=== PATIENT | female | born 1945 | race Caucasian/White ===

== ENCOUNTER → 2018-05-04 10:06 | Outpatient (CLI) | payer MEDICARE, OTHER, SELFPAY ==
[2018-05-04 11:23] LABS: Free T4 (Free Thyroxine) 1.34 ng/dl (0.76-1.46); Thyroid Stimulating Hormone 1.03 uIU/ml (0.358-3.740)
[2018-05-05 17:11] LABS: Thyroglobulin Level <1.0 IU/mL (0.0-0.9); Thyroid Peroxidase Antibodies 9 IU/mL (0-34)
== END ==
PROVIDERS: Visit Provider Otolaryngology
DX: E03.9 Hypothyroidism, unspecified (principal)
CPT/HCPCS: 36415; 84439; 84443; 86376; 86800

== ENCOUNTER → 2018-05-29 08:15 | Outpatient (POV) | payer MEDICARE, OTHER, SELFPAY | PROVIDERS: PCP Internal Medicine Adolescent Medicine; Visit Provider Nurse Practitioner Acute Care | DX: Z00.00 Encounter for general adult medical examination without abnormal findings (principal) ==

== ENCOUNTER → 2018-05-30 09:41 | Outpatient (POV) | payer MEDICARE, OTHER, SELFPAY ==
[2018-05-30 09:48] VITALS: BP 178/93; PULSE 81; RESP 18; O2SAT 98
--- NOTE | 2018-05-30 12:19 | HMH.PMCON ---
Assessment and Plan (1) Facet arthropathy Current visit: Yes Status: Chronic Category: Medical Code(s): M47.819 - Spondylosis without myelopathy or radiculopathy, site unspecified - Assessment and plan all Dx Assessment and Plan for all problems:: We will schedule medial branch block/facet joint injections at L4-L5 L5 5 S1 bilaterally. Patient and I discussed this procedure and she would like to move forward with it. Patient is continuing on with her neurostimulator. Patient is asking if she has to have an appointment for her neuro stim adjustments if she can have them in this office and I ensured her that that would be fine. Patient is not on any anticoagulation therapy, patient's tried and failed physical therapy, medications, anti-inflammatories. Patient is continuing with a home stretching regimen. I will follow-up with the patient after her injection. This note was dictated using voice recognition software and may contain errors or omissions HPI - Data of Consult Consult date: 05/30/18 Requesting Physician: Delmis Monzon APRN Primary Care Provider: Enoch Bardales MD Family Provider: Referral Provider, - Consult Narrative Reason for consult: Back pain History of present illness: Ms. Marroquin is a 73 year old female since today for consultation in regards to her low back pain. Patient states that about a year ago she fell in a foxhole and she has been having increased pain ever since. Patient does have a Saint Derek stimulator in place since 2009 and she states that works very well. Patient denies any pain into her legs. Patient has pain when she has any twisting motion of her low back. Patient states that her back pain stays in the center of her low back. Patient's tried and failed gabapentin, anti-inflammatories, Lyrica and Flexeril. Patient does have a x-ray showing facet arthropathy at L4-L5 L5-S1. She rates her pain a 6 out of 10 today. Patient states activity makes it worse while resting makes it better. CC: Delmis Monzon APRN [facility] History I have reviewed the patient's past medical history: Yes Medical History: Reports:: Hyperlipidemia, Hypertension Other Medical History: Reports: Arthritis, Fibromyalgia, Hypothyroidism, Thyroid Disease Other Surgeries: Yes: Cholecystectomy, Hysterectomy-Total, Sinus Surgery - *Social History Smoking Status: Never smoker Alcohol Intake: never Occupational Status: other Housing: house - Psychiatric History Expresses thoughts of harming self/others: None Suicide Plan Description: No Plan *Family Hx:: Unable to obtain Review of Systems - Review of Systems ROS General: no recent weight change, no fever, no sleep disturbances Respiratory: no cough, no shortness of air, no recurring pulmonary infections Cardiovascular/Peripheral Vascular: No chest pain, No palpitations, no edema, no shortness of breath. Gastrointestinal: no incontinence, normal bowel movements reported Genitourinary: no incontinence Musculoskeletal: Back pain Psychiatric: normal mood/ affect Neurological: [denies weakness in extremities], [denies balance issues] Meds Home Medications Medication Instructions Recorded Confirmed Type Esomeprazole Magnesium [Nexium] 40 mg PO HS 05/30/18 05/30/18 History Levothyroxine Sodium 112 mcg PO DAILY 05/30/18 05/30/18 History [Levothyroxine 112mcg (0.112mg) Tab] Losartan Potassium 100 mg PO DAILY 05/30/18 05/30/18 History Nebivolol HCl [Bystolic] 5 mg PO DAILY 05/30/18 05/30/18 History Potassium Chloride [Klor-con 20 20 meq PO DAILY 05/30/18 05/30/18 History mEq tablet] Simvastatin 40 mg PO DAILY 05/30/18 05/30/18 History Vitamin B Complex [B Complex] 1 each PO DAILY 05/30/18 05/30/18 History Allergies Allergy/AdvReac Type Severity Reaction Status Date / Time codeine [CODEINE] Allergy Unknown BLOOD Unverified 10/04/17 15:24 PRESSURE DROPS erythromycin base Allergy Unknown GI UPSET U
--- NOTE | 2018-05-30 12:25 | P.CONS_ITS ---
Assessment and Plan (1) Facet arthropathy Current visit: Yes Status: Chronic Category: Medical Code(s): M47.819 - Spondylosis without myelopathy or radiculopathy, site unspecified - Assessment and plan all Dx Assessment and Plan for all problems:: We will schedule medial branch block/facet joint injections at L4-L5 L5 5 S1 bilaterally. Patient and I discussed this procedure and she would like to move forward with it. Patient is continuing on with her neurostimulator. Patient is asking if she has to have an appointment for her neuro stim adjustments if she can have them in this office and I ensured her that that would be fine. Patient is not on any anticoagulation therapy, patient's tried and failed physical therapy, medications, anti-inflammatories. Patient is continuing with a home stretching regimen. I will follow-up with the patient after her injection. This note was dictated using voice recognition software and may contain errors or omissions HPI - Data of Consult Consult date: 05/30/18 Requesting Physician: Delmis Monzon APRN Primary Care Provider: Enoch Bardales MD Family Provider: Referral Provider, - Consult Narrative Reason for consult: Back pain History of present illness: Ms. Marroquin is a 73 year old female since today for consultation in regards to her low back pain. Patient states that about a year ago she fell in a foxhole and she has been having increased pain ever since. Patient does have a Saint Derek stimulator in place since 2009 and she states that works very well. Patient denies any pain into her legs. Patient has pain when she has any twisting motion of her low back. Patient states that her back pain stays in the center of her low back. Patient's tried and failed gabapentin, anti- inflammatories, Lyrica and Flexeril. Patient does have a x-ray showing facet arthropathy at L4-L5 L5-S1. She rates her pain a 6 out of 10 today. Patient states activity makes it worse while resting makes it better. CC: Delmis Monzon APRN [facility] History I have reviewed the patient's past medical history: Yes Medical History: Reports:: Hyperlipidemia, Hypertension Other Medical History: Reports: Arthritis, Fibromyalgia, Hypothyroidism, Thyroid Disease Other Surgeries: Yes: Cholecystectomy, Hysterectomy-Total, Sinus Surgery - *Social History Smoking Status: Never smoker Alcohol Intake: never Occupational Status: other Housing: house - Psychiatric History Expresses thoughts of harming self/others: None Suicide Plan Description: No Plan *Family Hx:: Unable to obtain Review of Systems - Review of Systems ROS General: no recent weight change, no fever, no sleep disturbances Respiratory: no cough, no shortness of air, no recurring pulmonary infections Cardiovascular/Peripheral Vascular: No chest pain, No palpitations, no edema, no shortness of breath. Gastrointestinal: no incontinence, normal bowel movements reported Genitourinary: no incontinence Musculoskeletal: Back pain Psychiatric: normal mood/ affect Neurological: [denies weakness in extremities], [denies balance issues] Meds Home Medications Medication Instructions Recorded Confirmed Type Esomeprazole Magnesium [Nexium] 40 mg PO HS 05/30/18 05/30/18 History Levothyroxine Sodium 112 mcg PO DAILY 05/30/18 05/30/18 History [Levothyroxine 112mcg (0.112mg) Tab] Losartan Potassium 100 mg PO DAILY 05/30/18 05/30/18 History Nebivolol HCl [Bystolic] 5 mg PO DA
== END ==
PROVIDERS: PCP Internal Medicine Adolescent Medicine; Visit Provider Clinical Nurse Specialist Family Health
DX: M47.819 Spondylosis without myelopathy or radiculopathy, site unspecified (principal)
CPT/HCPCS: 99202

== ENCOUNTER → 2018-07-05 10:26 | Outpatient (POV) | payer MEDICARE, OTHER, SELFPAY ==
[2018-07-05 10:45] VITALS: BP 148/80; PULSE 90; RESP 18; BMI 32.1
--- NOTE | 2018-07-05 12:20 | HMH.PAINSOAP ---
[facility] Pain Management SOAP Note Subjective:: This patient is a pleasant 73-year-old white female who we are treating for low back pain with lumbar spondylosis and facet arthropathy. She does have a Saint Derek stimulator in place which is being reprogrammed today. This is working very well for her. She does not have any pain in her legs. Most of her pain is axial. She underwent bilateral facet joint injections of L4-L5 and L5-S1 with 100% relief in her pain symptoms for 3-4 days. Her pain is still significantly better. However it is coming back. We will seek approval for repeat bilateral facet joint injections of L4-5 and L5-S1. Objective:: Alert and oriented ?3 no acute distress. Patient does have an antalgic gait. Motor strength of the lower extremities is 5/5. There is no gross sensory deficit. Increased pain with extension. Increased pain with twisting. Tenderness over the facet joints of L4-5 and L5-S1. 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 Her pain is starting to return. We will seek approval for repeat bilateral facet joint injections of L4-5 and L5-S1.
== END ==
PROVIDERS: PCP Internal Medicine Adolescent Medicine; Visit Provider Anesthesiology
DX: M54.06 Panniculitis affecting regions of neck and back, lumbar region (principal); M51.36 Other intervertebral disc degeneration, lumbar region
CPT/HCPCS: 99212

== ENCOUNTER → 2018-09-26 09:53 | Outpatient (POV) | payer MEDICARE, OTHER, SELFPAY ==
[2018-09-26 10:27] VITALS: BP 157/72; PULSE 79; RESP 18; O2SAT 99; BMI 32.2
--- NOTE | 2018-09-26 10:30 | HMH.PAINSOAP ---
[facility] Pain Management SOAP Note Subjective:: Patient is an extremely pleasant 73-year-old white female who presents today for follow-up after her second round of medial branch blocks at L4-L5 L5-S1. Patient got several weeks of 100% relief. Patient has recently been having a few more muscle spasms and is continuing to have a little bit of increased pain. Patient is interested in a [employer]. Patient also having issues with her Saint Derek stimulator. Patient has had this for 8 years and it may be time for her to have a battery change out. ROS General: no recent weight change, no fever, no sleep disturbances Respiratory: no cough, no shortness of air, no recurring pulmonary infections Cardiovascular/Peripheral Vascular: No chest pain, No palpitations, no edema, no shortness of breath. Gastrointestinal: no incontinence, normal bowel movements reported Genitourinary: no incontinence Musculoskeletal: Back pain Psychiatric: normal mood/ affect Neurological: [denies weakness in extremities], [denies balance issues] Objective:: Physical Exam General: Alert and oriented x3, no acute distress, pleasant and cooperative, [on room air] Lungs: Resps E/U, Symmetrical chest expansion, Eyes: PERRL Musculoskeletal: Flexion and extension of lumbar spine somewhat guarded secondary to pain, deep tendon reflexes normal, strength in upper and lower extremities [5/5], slightly antalgic gait noted, positive Kemps test bilaterally lumbar spine Neurological: speech clear, fabric worker equal, no gross sensory deficits Assessment:: Degenerative disc disease lumbar spine with lumbar spondylosis and facet arthropathy Plan:: We will order radiofrequency ablation of the L4-L5 L5-S1 levels. We will start with the left side and in 2 weeks have her come back for the right side. Patient's not on any anticoagulation therapy. Patient is continuing a home stretching therapy. Patient is on anti-inflammatories. This note was dictated using voice recognition software and may contain errors or omissions
--- NOTE | 2018-09-26 10:33 | P.CONS_ITS ---
[facility] Pain Management SOAP Note Subjective:: Patient is an extremely pleasant 73-year-old white female who presents today for follow-up after her second round of medial branch blocks at L4-L5 L5-S1. Patient got several weeks of 100% relief. Patient has recently been having a few more muscle spasms and is continuing to have a little bit of increased pain. Patient is interested in a [employer]. Patient also having issues with her Saint Derek stimulator. Patient has had this for 8 years and it may be time for her to have a battery change out. ROS General: no recent weight change, no fever, no sleep disturbances Respiratory: no cough, no shortness of air, no recurring pulmonary infections Cardiovascular/Peripheral Vascular: No chest pain, No palpitations, no edema, no shortness of breath. Gastrointestinal: no incontinence, normal bowel movements reported Genitourinary: no incontinence Musculoskeletal: Back pain Psychiatric: normal mood/ affect Neurological: [denies weakness in extremities], [denies balance issues] Objective:: Physical Exam General: Alert and oriented x3, no acute distress, pleasant and cooperative, [on room air] Lungs: Resps E/U, Symmetrical chest expansion, Eyes: PERRL Musculoskeletal: Flexion and extension of lumbar spine somewhat guarded secondary to pain, deep tendon reflexes normal, strength in upper and lower extremities [5/5], slightly antalgic gait noted, positive Kemps test bilaterally lumbar spine Neurological: speech clear, 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 We will start with the left side and in 2 weeks have her come back for the right side. Patient's not on any anticoagulation therapy. Patient is continuing a home stretching therapy. Patient is on anti-inflammatories. This note was dictated using voice recognition software and may contain errors or omissions
== END ==
PROVIDERS: PCP Internal Medicine Adolescent Medicine; Visit Provider Clinical Nurse Specialist Family Health
DX: M51.36 Other intervertebral disc degeneration, lumbar region (principal); M47.896 Other spondylosis, lumbar region; M54.06 Panniculitis affecting regions of neck and back, lumbar region
CPT/HCPCS: 99213

== ENCOUNTER → 2018-11-20 12:49 | Outpatient (POV) | payer MEDICARE, OTHER, SELFPAY ==
[2018-11-20 13:12] VITALS: BP 133/76; PULSE 84; RESP 18; O2SAT 99; BMI 32.2
--- NOTE | 2018-11-20 13:20 | HMH.PAINSOAP ---
[facility] Pain Management SOAP Note Subjective:: Is a very pleasant 73-year-old white female who we are treating for low back pain secondary to lumbar spondylosis she status post her lumbar RFA and doing well rating her pain a 1 out of 10 today. Patient states the majority of her pain is in her neck. She has not had any diagnostic imaging recently. We will send her for plain film x-rays today. Patient states her head feels too heavy for her neck. She does not have any trouble with rotation. She has no radicular symptoms. ROS General: no recent weight change, no fever, no sleep disturbances Respiratory: no cough, no shortness of air, no recurring pulmonary infections Cardiovascular/Peripheral Vascular: No chest pain, No palpitations, no edema, no shortness of breath. Gastrointestinal: no incontinence, normal bowel movements reported Genitourinary: no incontinence Musculoskeletal: Neck pain Psychiatric: normal mood/ affect Neurological: [denies weakness in extremities], [denies balance issues] Objective:: Physical Exam General: Alert and oriented x3, no acute distress, pleasant and cooperative, [on room air] Lungs: Resps E/U, Symmetrical chest expansion, Eyes: PERRL Musculoskeletal: Flexion and extension of cervical spine somewhat guarded secondary to pain, deep tendon reflexes normal, strength in upper and lower extremities [5/5], normal gait noted Neurological: speech clear, embroiderer hand equal, no gross sensory deficits Assessment:: Degenerative disc disease lumbar spine with lumbar spondylosis and facet arthropathy, neck pain Plan:: We will send the patient for plain film x-rays of her neck and to follow-up with her in 10 days or so. We will reassess her symptoms at that time and make a plan of care. Dr. Rueda has reviewed this note and agrees with this plan of care. This note was dictated using voice recognition software and may contain errors or omissions
--- NOTE | 2018-11-20 13:23 | P.CONS_ITS ---
[facility] Pain Management SOAP Note Subjective:: Is a very pleasant 73-year-old white female who we are treating for low back pain secondary to lumbar spondylosis she status post her lumbar RFA and doing well rating her pain a 1 out of 10 today. Patient states the majority of her pain is in her neck. She has not had any diagnostic imaging recently. We will send her for plain film x-rays today. Patient states her head feels too heavy for her neck. She does not have any trouble with rotation. She has no radicular symptoms. ROS General: no recent weight change, no fever, no sleep disturbances Respiratory: no cough, no shortness of air, no recurring pulmonary infections Cardiovascular/Peripheral Vascular: No chest pain, No palpitations, no edema, no shortness of breath. Gastrointestinal: no incontinence, normal bowel movements reported Genitourinary: no incontinence Musculoskeletal: Neck pain Psychiatric: normal mood/ affect Neurological: [denies weakness in extremities], [denies balance issues] Objective:: Physical Exam General: Alert and oriented x3, no acute distress, pleasant and cooperative, [on room air] Lungs: Resps E/U, Symmetrical chest expansion, Eyes: PERRL Musculoskeletal: Flexion and extension of cervical spine somewhat guarded secondary to pain, deep tendon reflexes normal, strength in upper and lower extremities [5/5], normal gait noted Neurological: speech clear, history instructor equal, no gross sensory deficits Assessment:: Degenerative disc disease lumbar spine with lumbar spondylosis and facet arthropathy, neck pain Plan:: We will send the patient for plain film x-rays of her neck and to follow-up with her in 10 days or so. We will reassess her symptoms at that time and make a plan of care. Dr. Rueda has reviewed this note and agrees with this plan of care. This note was dictated using voice recognition software and may contain errors or omissions
--- NOTE | 2018-11-20 13:28 | XR_ITS ---
EXAM: XR cervical spine 5V HISTORY: Neck pain ITS.REASON: NECK PAIN ORDERING PHYSICIAN: Delmis Monzon PATIENT AGE: 73 years COMPARISON: None FINDINGS: Normal alignment. No fracture or dislocation. No lytic or blastic change. There is degenerative disc disease at C5-C6. There is minimal local vertebral hypertrophy with minimal foraminal narrowing on the right at C5-6. No cervical rib IMPRESSION: Mild degenerative disc disease with minimal right-sided foraminal narrowing at C5-C6
== END ==
PROVIDERS: PCP Internal Medicine Adolescent Medicine; Visit Provider Clinical Nurse Specialist Family Health
DX: M51.36 Other intervertebral disc degeneration, lumbar region (principal); M47.896 Other spondylosis, lumbar region; M54.06 Panniculitis affecting regions of neck and back, lumbar region; M54.2 Cervicalgia
CPT/HCPCS: 72050; 99213

== ENCOUNTER → 2018-12-05 09:58 | Outpatient (POV) | payer MEDICARE, OTHER, SELFPAY ==
[2018-12-05 10:15] VITALS: BP 142/71; PULSE 83; RESP 18; O2SAT 98; BMI 32.2
--- NOTE | 2018-12-05 12:41 | HMH.PAINSOAP ---
[facility] Pain Management SOAP Note Subjective:: Patient is a pleasant 73-year-old white female who we are treating for low back and neck pain. Patient states that her low back pain has begun to return. Patient may need a lumbar medial branch block booster shot. Patient also had x-ray of her neck showing degenerative disc disease at C5-C6. Patient is interested in injective therapy given the efficacy of it in the past. She rates her pain today a 6 out of 10. ROS General: no recent weight change, no fever, no sleep disturbances Respiratory: no cough, no shortness of air, no recurring pulmonary infections Cardiovascular/Peripheral Vascular: No chest pain, No palpitations, no edema, no shortness of breath. Gastrointestinal: no incontinence, normal bowel movements reported Genitourinary: no incontinence Musculoskeletal: Neck pain, back pain Psychiatric: normal mood/ affect, Neurological: [denies weakness in extremities], [denies balance issues] Objective:: Physical Exam General: Alert and oriented x3, no acute distress, pleasant and cooperative, [on room air] Lungs: Resps E/U, Symmetrical chest expansion, Eyes: PERRL Musculoskeletal: Flexion and extension of cervical and lumbar spine somewhat guarded secondary to pain, deep tendon reflexes normal, strength in upper and lower extremities [5/5], slightly antalgic gait noted positive Kemps test Neurological: speech clear, edging catcher equal, no gross sensory deficits Assessment:: Degenerative disc disease cervical spine with cervical radiculopathy, lumbar spondylosis, lumbar facet arthropathy Plan:: We will plan a booster medial branch block/facet joint injection at L3-L4 L4-L5 L5-S1 bilaterally. We will then in 2 weeks do a C5-C6 cervical epidural steroid injection for the patient. I believe given the efficacy of these injections in the past will be beneficial for her. She is continuing a home stretching regimen. She is on anti-inflammatories. She denies any anticoagulation therapy. Dr. Rueda has reviewed this note and agrees with this plan of care. This note was dictated using voice recognition software and may contain errors or omissions
--- NOTE | 2018-12-05 12:44 | P.CONS_ITS ---
[facility] Pain Management SOAP Note Subjective:: Patient is a pleasant 73-year-old white female who we are treating for low back and neck pain. Patient states that her low back pain has begun to return. Patient may need a lumbar medial branch block booster shot. Patient also had x- ray of her neck showing degenerative disc disease at C5-C6. Patient is interested in injective therapy given the efficacy of it in the past. She rates her pain today a 6 out of 10. ROS General: no recent weight change, no fever, no sleep disturbances Respiratory: no cough, no shortness of air, no recurring pulmonary infections Cardiovascular/Peripheral Vascular: No chest pain, No palpitations, no edema, no shortness of breath. Gastrointestinal: no incontinence, normal bowel movements reported Genitourinary: no incontinence Musculoskeletal: Neck pain, back pain Psychiatric: normal mood/ affect, Neurological: [denies weakness in extremities], [denies balance issues] Objective:: Physical Exam General: Alert and oriented x3, no acute distress, pleasant and cooperative, [on room air] Lungs: Resps E/U, Symmetrical chest expansion, Eyes: PERRL Musculoskeletal: Flexion and extension of cervical and lumbar spine somewhat guarded secondary to pain, deep tendon reflexes normal, strength in upper and lower extremities [5/5], slightly antalgic gait noted positive Kemps test Neurological: speech clear, warper tender equal, no gross sensory deficits Assessment:: Degenerative disc disease cervical spine with cervical radiculopathy, lumbar spondylosis, lumbar facet arthropathy Plan:: We will plan a booster medial branch block/facet joint injection at L3-L4 L4-L5 L5-S1 bilaterally. We will then in 2 weeks do a C5-C6 cervical epidural steroid injection for the patient. I believe given the efficacy of these injections in the past will be beneficial for her. She is continuing a home stretching regimen. She is on anti-inflammatories. She denies any anticoagulation therapy. Dr. Rueda has reviewed this note and agrees with this plan of care. This note was dictated using voice recognition software and may contain errors or omissions
== END ==
PROVIDERS: PCP Internal Medicine Adolescent Medicine; Visit Provider Clinical Nurse Specialist Family Health
DX: M50.10 Cervical disc disorder with radiculopathy, unspecified cervical region (principal); M47.816 Spondylosis without myelopathy or radiculopathy, lumbar region; M54.06 Panniculitis affecting regions of neck and back, lumbar region
CPT/HCPCS: 99213

== ENCOUNTER → 2018-12-18 12:40 | Outpatient (CLI) | payer MEDICARE, OTHER, SELFPAY ==
--- NOTE | 2018-12-18 12:42 | XR_ITS ---
XR DEXA axial skeleton HISTORY: ITS.REASON: OSTEOPOROSIS ORDERING PHYSICIAN: Enoch Bardales MD PATIENT AGE: 73 years COMPARISON: 02/06/2016 FINDINGS: The BMD measured at the Right femoral neck is 0.906 g/cm squared with a T score of -0.9. This is considered Normal according to the World Health Organization criteria. Fracture risk is Low. L1 L4 density has a T score of 0.6. The lumbar density has increased by 1.3% in the hip density has increased by 1.4% compared to the previous exam IMPRESSION: Normal bone density with low fracture risk. Suggest follow-up exam December 2020
== END ==
PROVIDERS: PCP Internal Medicine Adolescent Medicine; Visit Provider Internal Medicine Adolescent Medicine
DX: M81.0 Age-related osteoporosis without current pathological fracture (principal)
CPT/HCPCS: 77080

== ENCOUNTER → 2019-01-15 13:04 | Outpatient (POV) | payer MEDICARE, OTHER, SELFPAY ==
[2019-01-15 13:20] VITALS: BP 133/67; PULSE 80; RESP 18; O2SAT 98; BMI 32.6
--- NOTE | 2019-01-15 13:33 | P.CONS_ITS ---
[facility] Pain Management SOAP Note Subjective:: Is a pleasant 74-year-old white female who presents today for follow-up after cervical epidural steroid injection. She rates her pain a 4 out of 10 today. She was pain-free for 3 days post her epidural. Patient has a neurostimulator that is coming to end of life. We will start the process of getting her seen by Dr. daryl taylor in order to have this replaced. We will send her for x-rays to help ensure positioning. We will switch her to a new Vectra system. ROS General: no recent weight change, no fever, no sleep disturbances Respiratory: no cough, no shortness of air, no recurring pulmonary infections Cardiovascular/Peripheral Vascular: No chest pain, No palpitations, no edema, no shortness of breath. Gastrointestinal: no incontinence, normal bowel movements reported Genitourinary: no incontinence Musculoskeletal: Back pain, leg pain Psychiatric: normal mood/ affect Neurological: [denies weakness in extremities], [denies balance issues] Objective:: Physical Exam General: Alert and oriented x3, no acute distress, pleasant and cooperative, [on room air] Lungs: Resps E/U, Symmetrical chest expansion, Eyes: PERRL Musculoskeletal: Flexion and extension of cervical and lumbar spine somewhat guarded secondary to pain, deep tendon reflexes normal, strength in upper and lower extremities [5/5], slightly antalgic gait noted Neurological: speech clear, publicity agent equal, no gross sensory deficits Assessment:: 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 And we will set her up for an appointment with Dr. alamo in the next couple months. Dr. Rueda has reviewed this note and agrees with this plan of care. This note was dictated using voice recognition software and may contain errors or omissions
== END ==
PROVIDERS: PCP Internal Medicine Adolescent Medicine; Visit Provider Clinical Nurse Specialist Family Health
DX: M51.16 Intervertebral disc disorders with radiculopathy, lumbar region (principal); M50.30 Other cervical disc degeneration, unspecified cervical region
CPT/HCPCS: 99212

== ENCOUNTER → 2019-01-25 11:09 | Outpatient (CLI) | payer MEDICARE, OTHER, SELFPAY ==
--- NOTE | 2019-01-25 11:14 | XR_ITS ---
EXAM: XR thoracic spine 2V HISTORY: Neurostimulator device check Comparison: None FINDINGS: An epidural neurostimulator device is present. The bulk of the tip of the device overlies T10. IMPRESSION: Neurostimulator leads are at the T10 level
--- NOTE | 2019-01-25 11:14 | XR_ITS ---
EXAM: XR lumbar spine 1V HISTORY: ITS.REASON: PLACEMENT OF NEUROSTIMULATOR LEAD ORDERING PHYSICIAN: Delmis Monzon PATIENT AGE: 74 years COMPARISON: None FINDINGS: The power pack of the neurostimulator device overlies the left ilium with the leads projecting superiorly in an oblique course forming a small loop at the L1 level. Multiple pelvic calcifications are present consistent with phleboliths. There is mild lumbar scoliosis convex right. IMPRESSION: Neurostimulator device present as described above
== END ==
PROVIDERS: PCP Internal Medicine Adolescent Medicine; Visit Provider Clinical Nurse Specialist Family Health
DX: M54.6 Pain in thoracic spine (principal); M54.5 Low back pain
CPT/HCPCS: 72020; 72070

== ENCOUNTER → 2019-03-06 14:52 | Outpatient (POV) | payer MEDICARE, OTHER, SELFPAY | PROVIDERS: Visit Provider Dermatology | DX: Z00.00 Encounter for general adult medical examination without abnormal findings (principal) ==

== ENCOUNTER → 2019-04-03 08:48 | Outpatient (CLI) | payer MEDICARE, OTHER, SELFPAY ==
[2019-04-03 09:07] LABS: Basophils # 0.1 K/mm3 (0-0.2); Basophils % 0.7 % (0.1-2.0); Eosinophils # 0.2 K/mm3 (0.0-0.4); Eosinophils % 1.8 % (0.1-12.0); Hematocrit 36.3 % (37.0-47.0); Hemoglobin 11.7 g/dL (12.2-16.2); Lymphocytes # 2.4 K/mm3 (0.7-4.5); Lymphocytes % 25.6 % (10-50); Mean Corpuscular HGB Conc 32.2 g/dL (31.8-35.4); Mean Corpuscular Hemoglobin 27.5 pg (27.0-31.2); Mean Corpuscular Volume 85.5 fl (81-99); Mean Platelet Volume 7.2 fl (7.4-10.4); Monocytes # 0.7 K/mm3 (0.1-1.0); Monocytes % 6.8 % (1.7-9.3); Neutrophils # 6.2 K/mm3 (1.8-7.8); Neutrophils % 65.1 % (37.0-80.0); Platelet Count 316 K/mm3 (142-424); Red Blood Count 4.25 M/mm3 (4.20-5.40); Red Cell Distribution Width 12.7 % (11.5-17.5); White Blood Count 9.5 K/mm3 (4.8-10.8)
[2019-04-03 10:39] LABS: Anion Gap 12.6 mEq/L (5-15); Blood Urea Nitrogen 20 mg/dL (7-18); Calcium 8.7 mg/dL (8.5-10.1); Carbon Dioxide 29 mmol/L (21.0-32.0); Chloride 92 mmol/L (98-107); Creatinine,Serum 1.19 mg/dL (0.55-1.02); Estimated Glomerular Filt Rate 44 ml/min (>60); GFR (African American) 54 ML/MIN (>60); Glucose 110 mg/dL (74-106); Potassium 3.6 mmoL/L (3.5-5.1); Sodium 130 mmol/L (136-145)
== END ==
PROVIDERS: Visit Provider Anesthesiology
DX: Z01.818 Encounter for other preprocedural examination (principal)
CPT/HCPCS: 36415; 80048; 85025

== ENCOUNTER → 2019-04-10 10:42 | Outpatient (POV) | payer MEDICARE, OTHER, SELFPAY ==
[2019-04-10 11:02] VITALS: BP 97/74; PULSE 74; RESP 18; O2SAT 98; BMI 32.3
--- NOTE | 2019-04-10 11:52 | HMH.PAINSOAP ---
[facility] Pain Management SOAP Note Subjective:: Patient is a pleasant 74-year-old white female who presents today for follow-up after spinal cord stimulator placement. . She says that she is doing well and rates her pain 3 out of 10 today. She is here to have her wound vac removed. She was also recently treated for mid back pain with thoracic myofascial pain on the right side. ROS General: no recent weight change, no fever, no sleep disturbances Respiratory: no cough, no shortness of air, no recurring pulmonary infections Cardiovascular/Peripheral Vascular: No chest pain, No palpitations, no edema, no shortness of breath. Gastrointestinal: no incontinence, normal bowel movements reported Genitourinary: no incontinence Musculoskeletal: Back pain Psychiatric: normal mood/ affect, [denies depression], [denies anxiety] Neurological: [denies weakness in extremities], [denies balance issues] Objective:: Physical Exam General: Alert and oriented x3, no acute distress, pleasant and cooperative, [on room air] Lungs: Resps E/U, Symmetrical chest expansion, [CTA bilateral] Eyes: PERRL Musculoskeletal: Flexion and extension of lumbar spine somewhat guarded secondary to pain, deep tendon reflexes normal, strength in upper and lower extremities [5/5], normal gait noted Neurological: speech clear, commercial lines account executive equal, no gross sensory deficits Assessment:: Degenerative disc disease cervical spine and degenerative disc disease lumbar spine with lumbar radiculopathy Plan:: The patient's incision is well approximated. No drainage or redness noted. No signs and symptoms of infection. The stitches are in place. We will see the patient back in 2 weeks for follow-up. She is been instructed to call the office if she has any concerns prior to her next appointment. Dr. Rueda has reviewed this note and agrees with this plan of care. This note was dictated using voice recognition software and may contain errors or omissions
--- NOTE | 2019-04-10 11:57 | P.CONS_ITS ---
[facility] Pain Management SOAP Note Subjective:: Patient is a pleasant 74-year-old white female who presents today for follow-up after spinal cord stimulator placement. . She says that she is doing well and rates her pain 3 out of 10 today. She is here to have her wound vac removed. She was also recently treated for mid back pain with thoracic myofascial pain on the right side. ROS General: no recent weight change, no fever, no sleep disturbances Respiratory: no cough, no shortness of air, no recurring pulmonary infections Cardiovascular/Peripheral Vascular: No chest pain, No palpitations, no edema, no shortness of breath. Gastrointestinal: no incontinence, normal bowel movements reported Genitourinary: no incontinence Musculoskeletal: Back pain Psychiatric: normal mood/ affect, [denies depression], [denies anxiety] Neurological: [denies weakness in extremities], [denies balance issues] Objective:: Physical Exam General: Alert and oriented x3, no acute distress, pleasant and cooperative, [on room air] Lungs: Resps E/U, Symmetrical chest expansion, [CTA bilateral] Eyes: PERRL Musculoskeletal: Flexion and extension of lumbar spine somewhat guarded secondary to pain, deep tendon reflexes normal, strength in upper and lower extremities [5/5], normal gait noted Neurological: speech clear, biztalk developer equal, no gross sensory deficits Assessment:: Degenerative disc disease cervical spine and degenerative disc disease lumbar spine with lumbar radiculopathy Plan:: The patient's incision is well approximated. No drainage or redness noted. No signs and symptoms of infection. The stitches are in place. We will see the patient back in 2 weeks for follow-up. She is been instructed to call the office if she has any concerns prior to her next appointment. Dr. Rueda has reviewed this note and agrees with this plan of care. This note was dictated using voice recognition software and may contain errors or omissions
== END ==
PROVIDERS: PCP Internal Medicine Adolescent Medicine; Visit Provider Clinical Nurse Specialist Family Health
DX: M50.30 Other cervical disc degeneration, unspecified cervical region (principal); M51.16 Intervertebral disc disorders with radiculopathy, lumbar region
CPT/HCPCS: 99212

== ENCOUNTER → 2019-04-11 12:02 | Outpatient (CLI) | payer MEDICARE, OTHER, SELFPAY ==
[2019-04-11 12:22] LABS: Basophils # 0.1 K/mm3 (0-0.2); Basophils % 0.9 % (0.1-2.0); Eosinophils # 0.3 K/mm3 (0.0-0.4); Eosinophils % 2.9 % (0.1-12.0); Hematocrit 35.7 % (37.0-47.0); Hemoglobin 11.6 g/dL (12.2-16.2); Lymphocytes # 2.7 K/mm3 (0.7-4.5); Lymphocytes % 29.3 % (10-50); Mean Corpuscular HGB Conc 32.4 g/dL (31.8-35.4); Mean Corpuscular Hemoglobin 29.4 pg (27.0-31.2); Mean Corpuscular Volume 90.7 fl (81-99); Mean Platelet Volume 7.4 fl (7.4-10.4); Monocytes # 0.6 K/mm3 (0.1-1.0); Monocytes % 6.2 % (1.7-9.3); Neutrophils # 5.6 K/mm3 (1.8-7.8); Neutrophils % 60.7 % (37.0-80.0); Platelet Count 366 K/mm3 (142-424); Red Blood Count 3.93 M/mm3 (4.20-5.40); Red Cell Distribution Width 13.2 % (11.5-17.5); White Blood Count 9.2 K/mm3 (4.8-10.8)
[2019-04-11 13:40] LABS: Alanine Aminotransferase 39 U/L (12-78); Albumin Level 3.5 gm/dL (3.4-5.0); Albumin/Globulin Ratio 0.9 (1.1-1.8); Alkaline Phosphatase 73 U/L (46-116); Anion Gap 15.7 mEq/L (5-15); Aspartate Amino Transferase 22 U/L (15-37); Bilirubin,Total 0.4 mg/dL (0.2-1.0); Blood Urea Nitrogen 18 mg/dL (7-18); Calcium 8.7 mg/dL (8.5-10.1); Carbon Dioxide 26 mmol/L (21.0-32.0); Chloride 91 mmol/L (98-107); Chol/HDL Ratio 2.1 (1-3.5); Cholesterol 126 mg/dL (140-200); Creatinine,Serum 1.38 mg/dL (0.55-1.02); Estimated Glomerular Filt Rate 37 ml/min (>60); Free Thyroxine Index 4.2 ug/dL (5.93-13.13); GFR (African American) 45 ML/MIN (>60); Globulin 3.7 gm/dl (1.3-3.2); Glucose 100 mg/dL (74-106); HDL Cholesterol 61 mg/dL (29-89); LDL Cholesterol 46 mg/dL (0-130); Magnesium 1.7 mg/dL (1.4-2.2); Potassium 4.7 mmoL/L (3.5-5.1); Sodium 128 mmol/L (136-145); T4 (Thyroxine) 12.6 ug/dl (4.7-13.3); Thyroid Stimulating Hormone 1.75 uIU/ml (0.358-3.740); Total Protein,Serum 7.2 gm/dL (6.4-8.2); Triglycerides 94 mg/dL (30-200); Triiodothryronine (T3) Uptake 33 % (31-39); VLDL Cholesterol 19 mg/dL (0-40)
== END ==
PROVIDERS: Visit Provider Internal Medicine Adolescent Medicine
DX: E03.9 Hypothyroidism, unspecified (principal); E78.5 Hyperlipidemia, unspecified; I95.1 Orthostatic hypotension
CPT/HCPCS: 36415; 80053; 80061; 83735; 84436; 84443; 84479; 85025

== ENCOUNTER → 2019-04-24 10:28 | Outpatient (POV) | payer MEDICARE, OTHER, SELFPAY ==
[2019-04-24 11:49] VITALS: BP 155/81; PULSE 74; RESP 18; O2SAT 98; BMI 33.0
[2019-04-24 12:15] LABS: Anion Gap 14.7 mEq/L (5-15); Blood Urea Nitrogen 15 mg/dL (7-18); Calcium 8.4 mg/dL (8.5-10.1); Carbon Dioxide 26 mmol/L (21.0-32.0); Chloride 101 mmol/L (98-107); Creatinine Clearance Estimated 67 mL/min (50-200); Creatinine,Serum 1.13 mg/dL (0.55-1.02); Estimated Glomerular Filt Rate 47 ml/min (>60); GFR (African American) 57 ML/MIN (>60); Glucose 99 mg/dL (74-106); Potassium 4.7 mmoL/L (3.5-5.1); Sodium 137 mmol/L (136-145)
--- NOTE | 2019-04-24 13:03 | HMH.PAINSOAP ---
[facility] Pain Management SOAP Note Subjective:: Patient is a pleasant 74-year-old white female who presents today for follow-up after spinal cord stimulator placement. She says that she is doing well today and rates her pain a 0 out of 10. She says that the stimulator has been 100% effective. Patient does say that she will contact the financial representative in a couple weeks to see if maybe she can have it reprogrammed. She does not feel like she needs any reprogramming at this time. She says that she had to work with it for a bit to get the right programming to ease my pain . Overall, she feels like she is doing much better. Review of Systems General: No recent weight changes, no fever, no sleep disturbances Respiratory: No cough, no shortness of air, no recurring pulmonary infections Cardiovascular/peripheral vascular: No chest pain, no palpitations, no edema, no shortness of breath Gastrointestinal: No new onset incontinence, normal bowel movements reported Genitourinary: No new onset incontinence Musculoskeletal: Back pain Psychiatric: Normal mood/affect Neurological: [Denies weakness in extremities], [denies balance issues] Objective:: Physical exam General: Alert and oriented x3, no acute distress, pleasant and cooperative, [on room air] Lungs: Respirations even and unlabored, symmetrical chest expansion Eyes: PERRL Musculoskeletal: Flexion and extension of lumbar spine somewhat guarded secondary to pain, deep tendon reflexes normal, strength in upper and lower extremities [5/5], [abnormal gait noted] Neurological: Speech clear, shock absorption floor layer equal, no gross sensory deficit Assessment:: Degenerative disc disease cervical spine and degenerative disc disease lumbar spine with lumbar radiculopathy Plan:: The patient is doing well. Her incision is well approximated with no infection noted. We will see the patient back in 1 month for follow-up. The patient says that she will call the stimulator financial representative if she feels like she needs reprogramming. She has been instructed to call the office if she has any concerns prior to her next appointment. Dr. Rueda has reviewed this note and agrees with this plan of care. This note was dictated using voice recognition software and make contain errors or omissions.
--- NOTE | 2019-04-24 13:10 | P.CONS_ITS ---
[facility] Pain Management SOAP Note Subjective:: Patient is a pleasant 74-year-old white female who presents today for follow-up after spinal cord stimulator placement. She says that she is doing well today and rates her pain a 0 out of 10. She says that the stimulator has been 100% effective. Patient does say that she will contact the regional sales representative in a couple weeks to see if maybe she can have it reprogrammed. She does not feel like she needs any reprogramming at this time. She says that she had to work with it for a bit to get the right programming to ease my pain . Overall, she feels like she is doing much better. Review of Systems General: No recent weight changes, no fever, no sleep disturbances Respiratory: No cough, no shortness of air, no recurring pulmonary infections Cardiovascular/peripheral vascular: No chest pain, no palpitations, no edema, no shortness of breath Gastrointestinal: No new onset incontinence, normal bowel movements reported Genitourinary: No new onset incontinence Musculoskeletal: Back pain Psychiatric: Normal mood/affect Neurological: [Denies weakness in extremities], [denies balance issues] Objective:: Physical exam General: Alert and oriented x3, no acute distress, pleasant and cooperative, [on room air] Lungs: Respirations even and unlabored, symmetrical chest expansion Eyes: PERRL Musculoskeletal: Flexion and extension of lumbar spine somewhat guarded secondary to pain, deep tendon reflexes normal, strength in upper and lower extremities [5/5], [abnormal gait noted] Neurological: Speech clear, paper and pulp mill worker equal, no gross sensory deficit Assessment:: Degenerative disc disease cervical spine and degenerative disc disease lumbar spine with lumbar radiculopathy Plan:: The patient is doing well. Her incision is well approximated with no infection noted. We will see the patient back in 1 month for follow-up. The patient says that she will call the stimulator regional sales representative if she feels like she needs reprogramming. She has been instructed to call the office if she has any concerns prior to her next appointment. Dr. Rueda has reviewed this note and agrees with this plan of care. This note was dictated using voice recognition software and make contain errors or omissions.
== END ==
PROVIDERS: Internal Medicine Adolescent Medicine; Visit Provider Clinical Nurse Specialist Family Health
DX: M51.16 Intervertebral disc disorders with radiculopathy, lumbar region (principal); E87.1 Hypo-osmolality and hyponatremia
CPT/HCPCS: 36415; 80048; 99213

== ENCOUNTER → 2019-07-13 10:46 | Outpatient (CLI) | payer MEDICARE, OTHER, SELFPAY ==
[2019-07-13 12:49] LABS: Alanine Aminotransferase 67 U/L (12-78); Albumin Level 3.3 gm/dL (3.4-5.0); Albumin/Globulin Ratio 0.8 (1.1-1.8); Alkaline Phosphatase 76 U/L (46-116); Anion Gap 12.5 mEq/L (5-15); Aspartate Amino Transferase 34 U/L (15-37); Bilirubin,Total 0.3 mg/dL (0.2-1.0); Blood Urea Nitrogen 16 mg/dL (7-18); Calcium 8.7 mg/dL (8.5-10.1); Carbon Dioxide 28 mmol/L (21.0-32.0); Chloride 104 mmol/L (98-107); Chol/HDL Ratio 2.3 (1-3.5); Cholesterol 122 mg/dL (140-200); Creatinine,Serum 1.17 mg/dL (0.55-1.02); Estimated Glomerular Filt Rate 45 ml/min (>60); GFR (African American) 55 ML/MIN (>60); Glucose 109 mg/dL (74-106); HDL Cholesterol 53 mg/dL (29-89); LDL Cholesterol 44 mg/dL (0-130); Potassium 4.5 mmoL/L (3.5-5.1); Sodium 140 mmol/L (136-145); Thyroid Stimulating Hormone 1.85 uIU/ml (0.358-3.740); Total Protein,Serum 7.3 gm/dL (6.4-8.2); Triglycerides 125 mg/dL (30-200); VLDL Cholesterol 25 mg/dL (0-40)
== END ==
PROVIDERS: Visit Provider Internal Medicine Adolescent Medicine
DX: E78.5 Hyperlipidemia, unspecified (principal); E03.9 Hypothyroidism, unspecified
CPT/HCPCS: 36415; 80053; 80061; 84443

== ENCOUNTER → 2019-07-16 12:41 | Outpatient (POV) | payer MEDICARE, OTHER, SELFPAY ==
[2019-07-16 12:58] VITALS: BP 177/80; PULSE 75; RESP 18; O2SAT 98; BMI 33.0
--- NOTE | 2019-07-16 13:41 | P.CONS_ITS ---
[facility] Pain Management SOAP Note Subjective:: Patient is a pleasant 74-year-old white female who presents today for discussion in regards to pain management. Patient has a neurostimulator that was doing extremely well for her however she had a sudden discontinuation in her stimulation. It was felt that she potentially needs a stimulator paddle lead revision. Patient is going to see Dr. Louise next week. Patient I discussed potential injection therapy to help with the pain until then she is uninterested in this at this time. She is concerned about gaining weight. She is unable to take gabapentin or Lyrica due to this. Patient rates her pain a 7 out of 10 today. She is not on any anti-inflammatories. ROS General: no recent weight change, no fever, no sleep disturbances Respiratory: no cough, no shortness of air, no recurring pulmonary infections Cardiovascular/Peripheral Vascular: No chest pain, No palpitations, no edema, no shortness of breath. Gastrointestinal: no incontinence, normal bowel movements reported Genitourinary: no incontinence Musculoskeletal: Neck pain, back pain Psychiatric: normal mood/ affect Neurological: [denies weakness in extremities], [denies balance issues] Objective:: Physical Exam General: Alert and oriented x3, no acute distress, pleasant and cooperative, [on room air] Lungs: Resps E/U, Symmetrical chest expansion, Eyes: PERRL Musculoskeletal: Flexion and extension of lumbar spine somewhat guarded secondary to pain, deep tendon reflexes normal, strength in upper and lower extremities [5/5], [abnormal gait noted] Neurological: speech clear, environmental conflict manager equal, no gross sensory deficits Assessment:: Degenerative disc disease lumbar spine with lumbar radiculopathy along with cervical degenerative disc disease Plan:: We will start the patient on Celebrex 200 mg 1 p.o. daily. Along with Elavil 25 mg at nighttime to see if this is beneficial. I will follow-up with the patient 1 month reassess her symptoms at that time patient does have an appointment with Dr. Louise for consultation. I will follow-up with the patient if necessary. Dr. Rueda has reviewed this note and agrees with this plan of care. This note was dictated using voice recognition software and may contain errors or omissions [facility] History I have reviewed the patient's past medical history: Yes Medical History: Reports:: Cancer (SKIN), Gastroesophageal Reflux Disease(GERD), Hyperlipidemia, Hypertension Denies:: Cardiomyopathy, Diabetes Mellitus Type 1, Diabetes Mellitus Type 2, Internal Pacemaker, MRSA, Seizures *Have you ever received a pneumonia vaccine?: Yes *Have you received a flu vaccine this season?: Yes Other Medical History: Reports: Arthritis, Fibromyalgia, Hypothyroidism, Thyroid Disease. Denies: Blood Transfusion Reaction Laterality Cases: Bilateral: Other Other Surgeries: Yes: Cholecystectomy, Hysterectomy-Total, Sinus Surgery, Thyroidectomy (PARTIAL). No: Pacemaker Amputation: No Fractures: No - *Social History Smoking Status: Former smoker Alcohol Intake: never Alcohol Intake Frequency:: holidays/special occasions only *Occupational Status:: other Housing: house Household Members: none *Travel in the last 8 weeks: None Family Hx:: Coronary Artery Disease, Diabetes, Heart Attack, Kidney Disease, Thyroid Disorder
== END ==
PROVIDERS: PCP Internal Medicine Adolescent Medicine; Visit Provider Clinical Nurse Specialist Family Health
DX: M51.16 Intervertebral disc disorders with radiculopathy, lumbar region (principal); M50.30 Other cervical disc degeneration, unspecified cervical region
CPT/HCPCS: 99212

== ENCOUNTER → 2019-07-24 12:57 | Outpatient (POV) | payer MEDICARE, OTHER, SELFPAY | PROVIDERS: Visit Provider Dermatology | DX: Z00.00 Encounter for general adult medical examination without abnormal findings (principal) ==

== ENCOUNTER → 2019-08-13 12:58 | Outpatient (POV) | payer MEDICARE, OTHER, SELFPAY ==
[2019-08-13 13:37] VITALS: BP 172/77; PULSE 74; RESP 18; O2SAT 98; BMI 30.4
--- NOTE | 2019-08-14 09:00 | HMH.PAINSOAP ---
[facility] Pain Management SOAP Note Subjective:: Patient is a pleasant 74-year-old white female who presents today for follow-up. Patient rates her pain today a 7 out of 10. She is currently awaiting surgery with Dr. Louise to repair a paddle lead. Patient has this on 07 September. Patient was started on Celebrex and amitriptyline however was ineffective. Patient is discontinued. ROS General: no recent weight change, no fever, no sleep disturbances Respiratory: no cough, no shortness of air, no recurring pulmonary infections Cardiovascular/Peripheral Vascular: No chest pain, No palpitations, no edema, no shortness of breath. Gastrointestinal: no new onset incontinence, normal bowel movements reported Genitourinary: no new onset incontinence Musculoskeletal: Back pain, leg pain, neck pain Psychiatric: normal mood/ affect, Neurological: [denies new onset weakness in extremities], [denies new onset balance issues] Objective:: Physical Exam General: Alert and oriented x3, no acute distress, pleasant and cooperative, [on room air] Lungs: Resps E/U, Symmetrical chest expansion, Eyes: PERRL Musculoskeletal: Flexion and extension of cervical and lumbar spine somewhat guarded secondary to pain, deep tendon reflexes normal, strength in upper and lower extremities [5/5], slightly antalgic gait noted] Neurological: speech clear, regulatory affairs manager equal, no gross sensory deficits Assessment:: Degenerative disc disease lumbar spine with lumbar leg radiculopathy along with cervical degenerative disc disease Plan:: We will follow-up with the patient after her surgery with Dr. Knox. She is been instructed to call the office if she has any issues prior to this appointment. Dr. Rueda has reviewed this note and agrees with this plan of care. This note was dictated using voice recognition software and may contain errors or omissions [facility] History I have reviewed the patient's past medical history: Yes Medical History: Reports:: Cancer (SKIN), Gastroesophageal Reflux Disease(GERD), Hyperlipidemia, Hypertension Denies:: Cardiomyopathy, Diabetes Mellitus Type 1, Diabetes Mellitus Type 2, Internal Pacemaker, MRSA, Seizures *Have you ever received a pneumonia vaccine?: Yes *Have you received a flu vaccine this season?: Yes Other Medical History: Reports: Arthritis, Fibromyalgia, Hypothyroidism, Thyroid Disease. Denies: Blood Transfusion Reaction Laterality Cases: Bilateral: Other Other Surgeries: Yes: Cholecystectomy, Hysterectomy-Total, Sinus Surgery, Thyroidectomy (PARTIAL). No: Pacemaker Amputation: No Fractures: No - *Social History Smoking Status: Never smoker Alcohol Intake: never Alcohol Intake Frequency:: holidays/special occasions only *Occupational Status:: other Housing: house Household Members: none *Travel in the last 8 weeks: None Family Hx:: Coronary Artery Disease, Diabetes, Heart Attack, Kidney Disease, Thyroid Disorder
== END ==
PROVIDERS: PCP Internal Medicine Adolescent Medicine; Visit Provider Clinical Nurse Specialist Family Health
DX: M51.16 Intervertebral disc disorders with radiculopathy, lumbar region (principal); M50.30 Other cervical disc degeneration, unspecified cervical region
CPT/HCPCS: 99212

== ENCOUNTER → 2019-08-14 12:44 | Outpatient (POV) | payer MEDICARE, OTHER, SELFPAY | PROVIDERS: Visit Provider Dermatology | DX: Z00.00 Encounter for general adult medical examination without abnormal findings (principal) ==

== ENCOUNTER → 2019-08-23 10:10 | Outpatient (CLI) | payer MEDICARE, OTHER, SELFPAY ==
[2019-08-23 12:59] LABS: Anion Gap 12.7 mEq/L (5-15); Blood Urea Nitrogen 12 mg/dL (7-18); Calcium 8.6 mg/dL (8.5-10.1); Carbon Dioxide 28 mmol/L (21.0-32.0); Chloride 103 mmol/L (98-107); Creatinine,Serum 1.06 mg/dL (0.55-1.02); Estimated Glomerular Filt Rate 51 ml/min (>60); GFR (African American) 61 ML/MIN (>60); Glucose 104 mg/dL (74-106); Potassium 3.7 mmoL/L (3.5-5.1); Sodium 140 mmol/L (136-145)
== END ==
PROVIDERS: Visit Provider Internal Medicine Adolescent Medicine
DX: N18.1 Chronic kidney disease, stage 1 (principal)
CPT/HCPCS: 36415; 80048

== ENCOUNTER → 2019-09-05 11:51 | Outpatient (CLI) | payer MEDICARE, OTHER, SELFPAY ==
--- NOTE | 2019-09-05 11:56 | XR_ITS ---
PROCEDURE: XR FOOT WT BEARING RT 3V CLINICAL INDICATION: pain COMPARISON: FTL3 FOOT-LT-3 VIEWS from 05/18/2017 FTL3 FOOT-LT-3 VIEWS from 06/21/2017 FINDINGS: On the AP view there is a subtle oblique lucency through the mid shaft of the 5th metatarsal. While this could be due to prominent trabeculation, 1 cannot exclude the possibility of an old fracture. Please correlate with patient's clinical history. Mild pes planus. Other findings:None. IMPRESSION: Mild pes planus. Possible old fracture of the 5th metatarsal Dictated by: Jaya Ferreira MD 09/05/2019 18:03 Electronically signed by Jaya Ferreira MD in [place] 09/05/2019 18:03
--- NOTE | 2019-09-05 11:56 | XR_ITS ---
PROCEDURE: XR FOOT WT BEARING LT 3V CLINICAL INDICATION: pain COMPARISON: FTL3 FOOT-LT-3 VIEWS from 05/18/2017 FTL3 FOOT-LT-3 VIEWS from 06/21/2017 FINDINGS: Minimal hallux valgus with mild hypertrophy of the 1st metatarsal distally and minimal osteoarthritic change of the 1st MTP joint. The joint spaces are well-preserved. No significant degenerative/arthritic changes. No erosive changes evident. Other findings:None. IMPRESSION: Minimal hallux valgus with mild hypertrophy of the 1st metatarsal distally and minimal osteoarthritic change of the 1st MTP joint. Dictated by: Jaya Ferreira MD 09/05/2019 18:04 Electronically signed by Jaya Ferreira MD in [place] 09/05/2019 18:04
== END ==
PROVIDERS: PCP Internal Medicine Adolescent Medicine; Visit Provider Podiatrist
DX: M79.672 Pain in left foot (principal); M79.671 Pain in right foot
CPT/HCPCS: 73630

== ENCOUNTER → 2019-09-25 10:13 | Outpatient (POV) | payer MEDICARE, OTHER, SELFPAY ==
[2019-09-25 10:41] VITALS: BP 182/80; PULSE 71; RESP 18; O2SAT 99; BMI 32.5
--- NOTE | 2019-09-25 10:45 | P.CONS_ITS ---
[facility] Pain Management SOAP Note Subjective:: Patient is a pleasant 74-year-old white female who presents today for follow-up. Patient had a paddle lead placement with [facility] at Dr. Louise and is doing extremely well rating her pain today a 4 out of 10. She does have some exhaustion due to some life circumstances. Patient overall doing well healed and no current issues. ROS General: no recent weight change, no fever, no sleep disturbances Respiratory: no cough, no shortness of air, no recurring pulmonary infections Cardiovascular/Peripheral Vascular: No chest pain, No palpitations, no edema, no shortness of breath. Gastrointestinal: no new onset incontinence, normal bowel movements reported Genitourinary: no new onset incontinence Musculoskeletal: Back pain, leg pain Psychiatric: normal mood/ affect, Neurological: [denies new onset weakness in extremities], [denies new onset balance issues] Objective:: Physical Exam General: Alert and oriented x3, no acute distress, pleasant and cooperative, [on room air] Lungs: Resps E/U, Symmetrical chest expansion, Eyes: PERRL Musculoskeletal: Flexion and extension of lumbar spine somewhat guarded secondary to pain, deep tendon reflexes normal, strength in upper and lower extremities [5/5], normal gait noted Neurological: speech clear, head of insight equal, no gross sensory deficits Assessment:: Degenerative disc disease lumbar spine with lumbar leg radiculopathy along with cervical degenerative disc disease Plan:: I will follow-up with the patient 2 months reassess her symptoms at that time she is been instructed to call the office if she has any issues prior to her next appointment. Dr. Rueda has reviewed this note and agrees with this plan of care. This note was dictated using voice recognition software and may contain errors or omissions [facility] History I have reviewed the patient's past medical history: Yes Medical History: Reports:: Cancer, Gastroesophageal Reflux Disease(GERD), Hyperlipidemia, Hypertension Denies:: Cardiomyopathy, Diabetes Mellitus Type 1, Diabetes Mellitus Type 2, Internal Pacemaker, MRSA, Seizures *Have you ever received a pneumonia vaccine?: Yes *Have you received a flu vaccine this season?: Yes Other Medical History: Reports: Arthritis, Fibromyalgia, Hypothyroidism, Thyroid Disease. Denies: Blood Transfusion Reaction Laterality Cases: Other Surgeries: Yes: Cholecystectomy, Hysterectomy-Total, Sinus Surgery, Thyroidectomy (PARTIAL). No: Pacemaker Amputation: No Fractures: No - *Social History Smoking Status: Never smoker Alcohol Intake: never Alcohol Intake Frequency:: holidays/special occasions only *Occupational Status:: other Housing: house Household Members: none *Travel in the last 8 weeks: None Family Hx:: Coronary Artery Disease, Diabetes, Heart Attack, Kidney Disease, Thyroid Disorder
== END ==
PROVIDERS: PCP Internal Medicine Adolescent Medicine; Visit Provider Clinical Nurse Specialist Family Health
DX: M51.16 Intervertebral disc disorders with radiculopathy, lumbar region (principal); M50.30 Other cervical disc degeneration, unspecified cervical region
CPT/HCPCS: 99212

== ENCOUNTER → 2019-11-12 14:37 | Outpatient (POV) | payer MEDICARE, OTHER, SELFPAY ==
--- NOTE | 2019-11-12 15:10 | XR_ITS ---
PROCEDURE: XR MULTIPLE SPINE 6+V CLINICAL INDICATION: BACK PAIN COMPARISON: No exams were available for comparison FINDINGS: Thoracic spine: AP and lateral views of the thoracic spine show mild multilevel degenerative disc disease. No fracture or dislocation. No lytic or blastic change. There is disc calcification at T11-T12. There is an epidural stimulator device with the tip of the electrode at the T10 level. Five views of the lumbar spine: Mild lumbar scoliosis convex right. No acute fracture or dislocation. There is degenerative disc disease at L1-L2 L2-L3. There is 4 mm anterolisthesis of L3 on L4. Mild facet arthritic changes are noted. Vascular calcifications also noted. IMPRESSION: Degenerative changes, no acute finding. Neurostimulator device present Dictated by: Jaya Ferreira MD 11/12/2019 16:08 Electronically signed by Jaya Ferreira MD in [facility] 11/12/2019 16:08
[2019-11-12 15:17] VITALS: BP 167/88; PULSE 83; RESP 18; O2SAT 98; BMI 32.5
--- NOTE | 2019-11-13 08:16 | HMH.PAINSOAP ---
[facility] Pain Management SOAP Note Subjective:: Patient is a pleasant 74-year-old white female who presents today for follow-up. Patient had a neurostimulator placed several months ago. Patient had been doing extremely well however recently she bent over to put air in her tires. On her way back to the standing position patient had extreme left lower flank pain and has had pain ever since. She rates her pain a 10 out of 10. Patient does have extreme tenderness in that area. Patient was sent for x-rays and placement of the leads are appropriate. Patient and I discussed conservative treatment including anti-inflammatories, steroids and muscle relaxers. The pain seems to be muscular in nature. ROS General: no recent weight change, no fever, no sleep disturbances Respiratory: no cough, no shortness of air, no recurring pulmonary infections Cardiovascular/Peripheral Vascular: No chest pain, No palpitations, no edema, no shortness of breath. Gastrointestinal: no new onset incontinence, normal bowel movements reported Genitourinary: no new onset incontinence Musculoskeletal: Left lower flank pain Psychiatric: normal mood/ affect Neurological: [denies new onset weakness in extremities], [denies new onset balance issues] Objective:: Physical Exam General: Alert and oriented x3, no acute distress, pleasant and cooperative, [on room air] Lungs: Resps E/U, Symmetrical chest expansion, Eyes: PERRL Musculoskeletal: Flexion and extension of lumbar spine somewhat guarded secondary to pain, deep tendon reflexes normal, strength in upper and lower extremities [5/5], slightly antalgic gait noted Neurological: speech clear, 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 I will follow-up with herIn a week reassess her at that time she is been instructed to call the office if she has any issues prior to her next appointment. If patient does not get relief within 2 days patient is going to call the office and further diagnostics can be done Dr. Rueda has reviewed this note and agrees with this plan of care. This note was dictated using voice recognition software and may contain errors or omissions [facility] History I have reviewed the patient's past medical history: Yes Medical History: Reports:: Cancer, Gastroesophageal Reflux Disease(GERD), Hyperlipidemia, Hypertension Denies:: Cardiomyopathy, Diabetes Mellitus Type 1, Diabetes Mellitus Type 2, Internal Pacemaker, MRSA, Seizures *Have you ever received a pneumonia vaccine?: Yes *Have you received a flu vaccine this season?: Yes Other Medical History: Reports: Arthritis, Fibromyalgia, Hypothyroidism, Thyroid Disease. Denies: Blood Transfusion Reaction Laterality Cases: Bilateral: Other Other Surgeries: Yes: Cholecystectomy, Hysterectomy-Total, Sinus Surgery, Thyroidectomy (PARTIAL). No: Pacemaker Amputation: No Fractures: No - *Social History Smoking Status: Never smoker Alcohol Intake: never Alcohol Intake Frequency:: holidays/special occasions only *Occupational Status:: other Housing: house Household Members: none *Travel in the last 8 weeks: None Family Hx:: Coronary Artery Disease, Diabetes, Heart Attack, Kidney Disease, Thyroid Disorder
== END ==
PROVIDERS: PCP Internal Medicine Adolescent Medicine; Visit Provider Clinical Nurse Specialist Family Health
DX: M51.16 Intervertebral disc disorders with radiculopathy, lumbar region (principal); K21.9 Gastro-esophageal reflux disease without esophagitis; E78.5 Hyperlipidemia, unspecified; I10 Essential (primary) hypertension; C80.1 Malignant (primary) neoplasm, unspecified; M19.90 Unspecified osteoarthritis, unspecified site; E03.9 Hypothyroidism, unspecified
CPT/HCPCS: 72084; 99212

== ENCOUNTER → 2020-04-17 09:57 | Outpatient (CLI) | payer MEDICARE, OTHER, SELFPAY ==
--- NOTE | 2020-04-17 11:10 | MM_ITS ---
PROCEDURE: MM DIG SCREENING MAMM BI W/CAD Digital Breast Tomosynthesis Included CLINICAL INDICATION: SCREENING There is no personal or family history of breast cancer. COMPARISON: [facility]MSB DIGITAL MAMM-SCREEN BILATERAL from 02/07/2013 [facility]MSB DIG MAMM-SCREEN BETO from 01/24/2014 DMSB DIG MAMM-SCREEN BETO from 02/03/2015 TECHNIQUE: Standard CC and MLO images and 3D Tomosynthesis was obtained. R2 CAD reviewed. FINDINGS: Mild fibroglandular densities are seen in the central portions of both breast with the remainder of the breast composed primarily of fat. There are scattered benign-appearing micro and macrocalcifications in each breast. There are 2 mole markers left breast and a single mole marker right breast. There is no new or suspicious lesion in either breast and no suspicious microcalcifications. IMPRESSION: Fibrofatty parenchyma with no suspicious lesions seen BI-RAD Category: 2 Benign Finding(s) FOLLOW-UP: 1YR 1 Year Follow-up (A letter has been sent to the patient regarding results of the study.) Dictated by: Dr. Ananda Lynn MD 04/19/2020 07:[address] Ananda Lynn MD in [place] 04/19/2020 07:37
--- NOTE | 2020-04-17 11:12 | XR_ITS ---
PROCEDURE: XR DEXA AXIAL SKELETON CLINICAL HISTORY: OSTOPOROSIS COMPARISON: No exams were available for comparison FINDINGS: The right hip BMD is 0.741 with a t-score of -1.0. The left hip BMD is 0.854 with a t-score of -0.7. The lumbar spine BMD is 1.034 with a t-score of -0.1. IMPRESSION: Normal bone density with low fracture risk. Suggest follow-up exam in 2 years Dictated by: Jaya Ferreira MD 04/17/2020 19:30 Electronically signed by Jaya Ferreira MD in [place] 04/18/2020 10:02
== END ==
PROVIDERS: PCP Internal Medicine Adolescent Medicine; Visit Provider Internal Medicine Adolescent Medicine
DX: Z12.31 Encounter for screening mammogram for malignant neoplasm of breast (principal); M81.0 Age-related osteoporosis without current pathological fracture
CPT/HCPCS: 77063; 77067; 77080

== ENCOUNTER → 2021-04-22 10:13 | Outpatient (CLI) | payer MEDICARE, OTHER, SELFPAY ==
--- NOTE | 2021-04-22 10:16 | MM_ITS ---
PROCEDURE INFORMATION: Exam: MG Screening 3D Mammography Exam date and time: 04/22/2021 10:16 AM Age: 76 years old Clinical indication: Encounter for screening mammogram for malignant neoplasm of breast TECHNIQUE: Imaging protocol: Screening tomosynthesis and 2D mammography including computer-aided detection (CAD) when performed. COMPARISON: 1. MG MM DIG SCREENING MAMM BI W/CAD 04/17/2020 11:13 AM 2. MG DMSB DIG MAMM-SCREEN BETO 02/03/2015 8:37 AM FINDINGS: MAMMOGRAPHY: Breast composition: The breast tissue is heterogeneously dense, which may obscure small masses. Mass: None. Architectural distortion: None. Calcifications: No suspicious calcifications. Asymmetric density: None. Skin thickening: None. Axillary adenopathy: None. IMPRESSION: No mammographic evidence of malignancy. Annual screening is recommended unless otherwise clinically indicated. ASSESSMENT: BI-RADS Category 1: Negative
== END ==
PROVIDERS: PCP Internal Medicine Adolescent Medicine; Visit Provider Internal Medicine Adolescent Medicine
DX: Z12.31 Encounter for screening mammogram for malignant neoplasm of breast (principal)
CPT/HCPCS: 77063; 77067

== ENCOUNTER → 2021-05-05 12:47 | Outpatient (POV) | payer MEDICARE, OTHER, SELFPAY | PROVIDERS: Visit Provider Dermatology | DX: Z00.00 Encounter for general adult medical examination without abnormal findings (principal) ==

== ENCOUNTER → 2021-05-06 12:38 | Outpatient (CLI) | payer MEDICARE, OTHER, SELFPAY ==
--- NOTE | 2021-05-06 12:43 | FL_ITS ---
PROCEDURE: FL BARIUM SWALLOW MODIFIED CLINICAL INDICATION: OROPHARYNGEAL DYSPHAGIA COMPARISON: No exams were available for comparison TECHNIQUE: Patient administered varying consistencies of barium contrast, while viewed in lateral position under real-time fluoroscopy with cine recording. FLUOROSCOPY TIME:2 minutes The study was performed in conjunction with speech pathologist. Please see that report & recommendations. FINDINGS: Patient was given varying consistencies of barium. No impairment apparent. IMPRESSION: Unremarkable modified barium swallow. Please see speech pathologist report and recommendations. Dictated by: Jaya Ferreira MD 05/11/2021 09:33 Jaya Ferreira MD in [place] 05/11/2021 09:33
--- NOTE | 2021-05-06 13:41 | HMH.SLMBS2 ---
Speech & Language Evaluation Speech/Language Mod Barium Swallow Start: 05/06/21 13:31 Freq: once Status: Complete Protocol: Document 05/06/21 13:31 MARLEN (Rec: 05/06/21 13:41 MARLEN [id number]) General Information General Current Food Consistancy Regular,Thin Liquids Dentition Good Dentition Oxygen Status Room Air Facial Symmetry Symmetrical Patient Orientation Person,Place,Time,Situation Ability to Follow Directions Excellent Communication Ability No Impairment MBS Recommendations Diet Dietary Recommendations Regular,Thin Liquids Referrals/Other Recommended Referrals GI Consult Mod Barium Swallow Impressions Summary and Impressions Oral Phase Impression No Impairment (WFL) Oral Phase Summary Ms. Marroquin was given the following consistencies: thins via open cup and straw, pudding, mechanical soft, regular, and pill with thin wash. No oral phase impairments noted. Pharyngeal Phase Impression No Impairment (WFL) Pharyngeal Phase Summary No pharyngeal phase impairments noted during evaluation. It was noted that the rate of the bolus slowed in esophageal phase of swallowing. It is recommended that Ms. Marroquin be referred for a GI consult. Speech/Language MBS Assessment/Goals/Plan Assessment Date of Evaluation: 05/06/21 Evaluation Type Initial Certification Assessment/Problems Dysphagia Does Patient Qualify for Service No Qualify/Failure Comment No overt s/s of dysphagia were noted. Plan Pt/Guardian verbally ack understanding Yes of dx/prognosis/goals G -code Required No Mod Barium Swallow Setup Exam Setup Radiologist Arvind Lynn Level of Consciousness Awake,Alert,Appropriate, Follows Commands Position (degrees) 90 Mod Barium Swallow-Lat View Textures Lateral View Food Presentation Thin Liquid via Cup,Thin Liquid via Straw,Ground Food- Regular,Barium Tablet,Regular Food,Pudding Oral Phase Labial Closure No Impairment (WFL) Bolus Formation Pooling L/R No Impairment (WFL) Bolus Formation under Tongue No Impairment (WFL) Bolus Formation Scattered Loss No Impairment (WFL) Mastication Rotary Chew No Impairmen
== END ==
PROVIDERS: PCP Internal Medicine Adolescent Medicine; Visit Provider Internal Medicine Adolescent Medicine
DX: R13.12 Dysphagia, oropharyngeal phase (principal)
CPT/HCPCS: 70371; 92611

== ENCOUNTER → 2021-05-19 13:08 | Outpatient (POV) | payer MEDICARE, OTHER, SELFPAY | PROVIDERS: Visit Provider Dermatology | DX: Z00.00 Encounter for general adult medical examination without abnormal findings (principal) ==

== ENCOUNTER → 2021-06-16 13:09 | Outpatient (POV) | payer MEDICARE, OTHER, SELFPAY | PROVIDERS: Visit Provider Dermatology | DX: Z00.00 Encounter for general adult medical examination without abnormal findings (principal) ==

== ENCOUNTER → 2021-07-15 10:21 | Outpatient (CLI) | payer MEDICARE, OTHER, SELFPAY ==
[2021-07-15 10:49] LABS: Basophils # 0.1 K/mm3 (0-0.2); Basophils % 0.9 % (0.1-2.0); Eosinophils # 0.2 K/mm3 (0.0-0.4); Eosinophils % 2.2 % (0.1-12.0); Hematocrit 39.8 % (37.0-47.0); Hemoglobin 13.1 g/dL (12.2-16.2); Lymphocytes # 3.2 K/mm3 (0.7-4.5); Lymphocytes % 30.1 % (10-50); Mean Corpuscular HGB Conc 32.9 g/dL (31.8-35.4); Mean Corpuscular Hemoglobin 29.2 pg (27.0-31.2); Mean Corpuscular Volume 88.6 fl (81-99); Mean Platelet Volume 8.1 fl (7.4-10.4); Monocytes # 0.6 K/mm3 (0.1-1.0); Monocytes % 5.3 % (1.7-9.3); Neutrophils # 6.4 K/mm3 (1.8-7.8); Neutrophils % 61.5 % (37.0-80.0); Platelet Count 290 K/mm3 (142-424); Red Blood Count 4.49 M/mm3 (4.20-5.40); Red Cell Distribution Width 13.5 % (11.5-17.5); White Blood Count 10.5 K/mm3 (4.8-10.8)
[2021-07-15 11:16] LABS: Chloride 105 mmol/L (98-107); Potassium 3.8 mmoL/L (3.5-5.1); Sodium 139 mmol/L (136-145)
[2021-07-15 11:19] LABS: Alanine Aminotransferase 19 U/L (12-78); Albumin Level 3.9 g/dl (3.5-5.0); Albumin/Globulin Ratio 1.3 (1.1-1.8); Alkaline Phosphatase 91 U/L (38-126); Anion Gap 14.8 mEq/L (5-15); Aspartate Amino Transferase 26 U/L (14-36); Bilirubin,Total 0.3 mg/dl (0.2-1.3); Blood Urea Nitrogen 13 mg/dl (7-17); Calcium 8.6 mg/dl (8.4-10.2); Carbon Dioxide 23 mmol/L (22.0-30.0); Cholesterol 134 mg/dl (140-200); Estimated Glomerular Filt Rate 61 ml/min (>60); GFR (African American) 73 ML/MIN (>60); Globulin 3.1 g/dL (1.3-3.2); Glucose 110 mg/dl (74-100); Triglycerides 125 mg/dl (30-150); VLDL Cholesterol 25 mg/dL (0-40)
[2021-07-15 11:20] LABS: Chol/HDL Ratio 2.2 (1-3.5); HDL Cholesterol 61 mg/dl (40-60)
[2021-07-15 11:31] LABS: Direct LDL Cholesterol 48.81 mg/dL (100-129)
[2021-07-15 11:36] LABS: Triiodothryronine (T3) Uptake 31 % (23.5-40.5)
[2021-07-15 11:37] LABS: Free Thyroxine Index 4.4 ug/dL (5.93-13.13); T4 (Thyroxine) 14.1 ug/dl (5.53-11.0)
[2021-07-15 11:51] LABS: Thyroid Stimulating Hormone 1.78 uIU/mL (0.465-4.68)
== END ==
PROVIDERS: Visit Provider Internal Medicine Adolescent Medicine
DX: E03.9 Hypothyroidism, unspecified (principal); E78.5 Hyperlipidemia, unspecified
CPT/HCPCS: 36415; 80053; 80061; 84436; 84443; 84479; 85025

== ENCOUNTER → 2021-10-19 10:15 | Outpatient (CLI) | payer MEDICARE, OTHER, SELFPAY ==
[2021-10-19 10:46] LABS: Basophils # 0.1 K/mm3 (0-0.2); Basophils % 1.1 % (0.1-2.0); Eosinophils # 0.2 K/mm3 (0.0-0.4); Eosinophils % 2.3 % (0.1-12.0); Hematocrit 40.6 % (37.0-47.0); Hemoglobin 13.2 g/dL (12.2-16.2); Lymphocytes # 2.9 K/mm3 (0.7-4.5); Lymphocytes % 29.1 % (10-50); Mean Corpuscular HGB Conc 32.5 g/dL (31.8-35.4); Mean Corpuscular Hemoglobin 28.8 pg (27.0-31.2); Mean Corpuscular Volume 88.4 fl (81-99); Mean Platelet Volume 8.9 fl (7.4-10.4); Monocytes # 0.4 K/mm3 (0.1-1.0); Monocytes % 4.3 % (1.7-9.3); Neutrophils # 6.3 K/mm3 (1.8-7.8); Neutrophils % 63.1 % (37.0-80.0); Platelet Count 316 K/mm3 (142-424); Red Cell Distribution Width 14.3 % (11.5-17.5)
[2021-10-19 12:15] LABS: Chloride 105 mmol/L (98-107); Potassium 4.2 mmoL/L (3.5-5.1); Sodium 141 mmol/L (136-145)
[2021-10-19 12:17] LABS: Alanine Aminotransferase 19 U/L (12-78); Alkaline Phosphatase 70 U/L (38-126); Aspartate Amino Transferase 28 U/L (14-36); Bilirubin,Total 0.5 mg/dl (0.2-1.3); Blood Urea Nitrogen 22 mg/dl (7-17); Estimated Glomerular Filt Rate 48 ml/min (>60); GFR (African American) 58 ML/MIN (>60)
[2021-10-19 12:18] LABS: Albumin Level 4.2 g/dl (3.5-5.0); Albumin/Globulin Ratio 1.4 (1.1-1.8); Anion Gap 13.2 mEq/L (5-15); Calcium 8.9 mg/dl (8.4-10.2); Carbon Dioxide 27 mmol/L (22.0-30.0); Chol/HDL Ratio 2.2 (1-3.5); Cholesterol 129 mg/dl (140-200); Globulin 3.1 g/dL (1.3-3.2); Glucose 111 mg/dl (74-100); HDL Cholesterol 58 mg/dl (40-60); Total Protein,Serum 7.3 g/dl (6.3-8.2); Triglycerides 114 mg/dl (30-150); VLDL Cholesterol 23 mg/dL (0-40)
[2021-10-19 12:25] LABS: Free Thyroxine Index 4.2 ug/dL (5.93-13.13); T4 (Thyroxine) 13.4 ug/dl (5.53-11.0); Triiodothryronine (T3) Uptake 31 % (23.5-40.5)
[2021-10-19 12:29] LABS: Direct LDL Cholesterol 46.43 mg/dL (100-129)
[2021-10-19 12:39] LABS: Thyroid Stimulating Hormone 2.48 uIU/mL (0.465-4.68)
== END ==
PROVIDERS: PCP Internal Medicine Adolescent Medicine; Visit Provider Internal Medicine Adolescent Medicine
DX: E03.9 Hypothyroidism, unspecified (principal); E78.5 Hyperlipidemia, unspecified
CPT/HCPCS: 36415; 80053; 80061; 84436; 84443; 84479; 85025

== ENCOUNTER → 2021-11-11 10:39 | Outpatient (CLI) | payer MEDICARE, OTHER, SELFPAY | PROVIDERS: PCP Internal Medicine Adolescent Medicine; Visit Provider Internal Medicine Gastroenterology | DX: Z01.812 Encounter for preprocedural laboratory examination (principal); Z11.52 Encounter for screening for COVID-19; Z13.810 Encounter for screening for upper gastrointestinal disorder; K22.70 Barrett's esophagus without dysplasia | CPT/HCPCS: C9803; U0003; U0005 ==

== ENCOUNTER → 2021-12-15 13:34 | Outpatient (POV) | payer MEDICARE, OTHER, SELFPAY | PROVIDERS: Visit Provider Dermatology | DX: Z00.00 Encounter for general adult medical examination without abnormal findings (principal) ==

== ENCOUNTER → 2022-04-23 10:39 | Outpatient (CLI) | payer MEDICARE, OTHER, SELFPAY ==
--- NOTE | 2022-04-23 10:42 | MM_ITS ---
PROCEDURE INFORMATION: Exam: MG Bilateral Screening 3D Mammography Exam date and time: 04/23/2022 10:34 AM Age: 77 years old Clinical indication: Screening examination TECHNIQUE: Imaging protocol: Bilateral Screening tomosynthesis and 2D mammography including computer-aided detection (CAD) when performed. COMPARISON: 1. MG MM DIG SCREENING MAMM BI W/CAD 04/22/2021 10:18 AM 2. MG MM DIG SCREENING MAMM BI W/CAD 04/17/2020 11:13 AM FINDINGS: MAMMOGRAPHY: Breast composition: There are scattered areas of fibroglandular density. Mass: None. Architectural distortion: No new or suspicious architectural distortion. Calcifications: Stable benign-appearing calcifications are present. No new or suspicious cluster of microcalcifications have developed. Asymmetric density: No new or suspicious asymmetric density is present Skin thickening: None. Axillary adenopathy: None. IMPRESSION: No mammographic evidence of malignancy. Recommend annual screening mammography unless otherwise clinically indicated. ASSESSMENT: BI-RADS category 2: Benign
== END ==
PROVIDERS: PCP Internal Medicine Adolescent Medicine; Visit Provider Internal Medicine Adolescent Medicine
DX: Z12.31 Encounter for screening mammogram for malignant neoplasm of breast (principal)
CPT/HCPCS: 77063; 77067

== ENCOUNTER → 2022-06-02 11:22 | Outpatient (CLI) | payer MEDICARE, OTHER, SELFPAY ==
--- NOTE | 2022-06-02 11:33 | XR_ITS ---
FINAL REPORT CLINICAL HISTORY: osteoarthritis of lt knee FINDINGS: Three views of the left knee reveal no evidence of fracture or dislocation. The bony alignment is normal. There is degenerative change greatest at the patellofemoral joint. There is a small joint effusion. No localized soft tissue abnormality is seen. IMPRESSION: Degenerative change with no acute abnormality identified. Small joint effusion. Reviewed, Interpreted and Dictated by Andrés Coronel III, MD Transcribed by Precious Jones Authenticated and . [facility]
--- NOTE | 2022-06-02 11:33 | XR_ITS ---
FINAL REPORT CLINICAL HISTORY: LOCIALIZED OSTEOARTHRITIS OF RT AND LT KNEE FINDINGS: Three views of the right knee reveal no evidence of fracture or dislocation. The bony alignment is normal. There is mild degenerative change greatest at patellofemoral joint. There is no evidence of joint effusion. No localized soft tissue abnormality is identified. IMPRESSION: Degenerative change with no acute abnormality identified. Reviewed, Interpreted and Dictated by Andrés Coronel III, MD Transcribed by Precious Jones Authenticated and [facility]
== END ==
PROVIDERS: PCP Internal Medicine Adolescent Medicine; Visit Provider Internal Medicine Adolescent Medicine
DX: M17.11 Unilateral primary osteoarthritis, right knee (principal); M17.12 Unilateral primary osteoarthritis, left knee
CPT/HCPCS: 73562

== ENCOUNTER → 2022-07-05 14:57 | Outpatient (POV) | payer MEDICARE, OTHER, SELFPAY ==
[2022-07-05 15:11] VITALS: BP 121/73; PULSE 85; RESP 20; TEMP 36.6; O2SAT 97; BMI 34.4
--- NOTE | 2022-07-05 15:48 | EXP.PAIN.SOA ---
[facility] Pain Management SOAP Note Subjective:: Patient is a pleasant 77-year-old female who presents today for follow-up. We are currently treating the patient for degenerative disc disease of lumbar spine with lumbar radiculopathy symptoms, lower lumbar strain. Today the patient rates her pain a 7 out of 10. She states the pain is primarily in her neck and shoulders that runs down her spine to her buttocks. Patient denies any new trauma or injury. Patient denies any change in location or type of pain she experiences. Patient describes this as a heavy, throbbing sensation that is worse with increased activity. In the past we have done injective therapy that did provide moderate improvement of her pain. Patient does use Tylenol [id number] as needed with minimal improvement of her symptoms. She also uses heat and ice however this does not provide significant relief of her symptoms. Patient has recently been diagnosed with stage I kidney disease and cannot tolerate any NSAIDs. Patient is currently prescribed Flexeril 10 mg that helps. Patient has seen physical therapy in the past with some improvement of her symptoms. Patient has a used a CBD cream but states provides significant improvement of her symptoms. Patient is managed with a [employer] spinal cord stimulator that was placed in 2019. Patient states this device provide significant relief of her pain symptoms. Patient denies any side effects from this implant. Her Silvino is [id number]. It has been reviewed and appropriate. Review of Systems: General: No recent weight changes, no fever, no sleep disturbances Respiratory: No cough, no shortness of air, no recurring pulmonary infections Cardiovascular/peripheral vascular: No chest pain, no palpitations, no edema, no shortness of breath Gastrointestinal: No new onset incontinence, normal bowel movements reported Genitourinary: No new onset incontinence Musculoskeletal: Neck pain, shoulder pain, low back pain Psychiatric: [Normal mood/affect] Neurological: [Denies weakness in extremities], [denies balance issues] Objective:: Physical Exam: General: Alert and oriented x3, no acute distress, pleasant and cooperative Lungs: Respirations even and unlabored, symmetrical chest expansion Eyes: PERRL Musculoskeletal: Flexion and extension of cervical, lumbar [spine] somewhat guarded secondary to pain, [antalgic gait noted]. Extreme point tenderness along bilateral cervical paraspinous and trapezius muscles Neurological: Speech clear, no gross sensory deficit Assessment:: Degenerative disc disease of lumbar spine with lumbar radiculopathy symptoms, lower lumbar strain, myofascial pain of bilateral cervical paraspinous and bilateral trapezius muscles. Plan:: Patient is experiencing significant pain in her neck, shoulders radiating down her lumbar spine. Patient had limited range of motion of her cervical and lumbar spine during today's exam. Patient also had extreme point tenderness of her bilateral cervical paraspinous and bilateral trapezius muscles. I have discussed with the patient regarding trigger point injections at the sites as well as she may benefit from a cervical epidural. Risk and benefits were discussed with the patient. At this time the patient is not interested in injective therapy. I will order the patient a compounding cream. Patient stated that she is planning on going to a chiropractor in the upcoming future. I have counseled the patient that I can send a referral to physical therapy if needed. We will follow-up with the patient in 3 months. Patient will return to clinic in 3 months for reevaluation of symptoms and follow-up. Patient has been instructed to contact the clinic with any concerns before the next appointment. Dr. Rueda has reviewed this note and agrees with this plan of care. This note was dictated using voice recognition software and make contain errors or omissions. PFSH PFSH Social History Smoking Status: Never smoker a
== END ==
PROVIDERS: PCP Internal Medicine Adolescent Medicine; Visit Provider Nurse Practitioner Family
DX: M51.16 Intervertebral disc disorders with radiculopathy, lumbar region (principal); M79.18 Myalgia, other site
CPT/HCPCS: 99212; G0463

== ENCOUNTER → 2022-08-10 14:32 | Outpatient (POV) | payer MEDICARE, OTHER, SELFPAY | PROVIDERS: Visit Provider Dermatology | DX: Z00.00 Encounter for general adult medical examination without abnormal findings (principal) ==

== ENCOUNTER → 2022-10-04 13:17 | Outpatient (POV) | payer MEDICARE, OTHER, SELFPAY ==
[2022-10-04 13:24] VITALS: BP 150/62; PULSE 81; RESP 18; O2SAT 97; BMI 33.7
--- NOTE | 2022-10-04 14:55 | A.OFFVIS_ITS ---
[facility] Pain Management SOAP Note Subjective:: Patient is a pleasant 77-year-old female who presents today for follow-up. Patient is currently being treated for degenerative disc disease of lumbar spine with lumbar radiculopathy symptoms, low back pain. We were managing this patient with injective therapy and they would provide significant but temporary relief. She is not interested in doing any injections at this time. She has been referred to NSx as well but she is not wanting to move forward with any surgeries. She says that she can tolerate her pain well. She takes tylenol as needed. She has stage 1 CKD, so she has been advised to not take any NSAIDs. She has been prescribed flexeril in the past that is not helping so she dced this. She continues to use CBD cream. She also goes to a chiropractor from time to time for adjustments. She has an [employer] SCS that is helping some of her pain. Rates pain today as 4/10. She has no other complaints today. Review of Systems: General: No recent weight changes, no fever, no sleep disturbances Respiratory: No cough, no shortness of air, no recurring pulmonary infections Cardiovascular/peripheral vascular: No chest pain, no palpitations, no edema, no shortness of breath Gastrointestinal: No new onset incontinence, normal bowel movements reported Genitourinary: No new onset incontinence Musculoskeletal: Neck pain, low back pain Psychiatric: [Normal mood/affect] Neurological: [Denies weakness in extremities], [denies balance issues] Objective:: Physical Exam: General: Alert and oriented x3, no acute distress, pleasant and cooperative Lungs: Respirations even and unlabored, symmetrical chest expansion Eyes: PERRL Musculoskeletal: Flexion and extension of cervical and lumbar [spine] somewhat guarded secondary to pain, [antalgic gait noted] Neurological: Speech clear, no gross sensory deficit Assessment:: 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 She also does not want to start any scheduled medications for pain. She will continue to use conservative therapies such as CBD cream and OTC medications. We will follow-up with this patient as needed. If the patient does decide to proceed with intervention management, we can try her on intrathecal pain pump. Patient has been instructed to contact the clinic with any concerns before the next appointment. Dr. Rueda has reviewed this note and agrees with this plan of care. This note was dictated using voice recognition software and make contain errors or omissions. [facility] Disclaimer: The information contained in this section may have been updated after the patient was seen, as this information can be updated by other users. Social History Smoking Status: Never smoker alcohol intake: never current occupational status: retired Travel in the last 8 weeks: None household members: none housing: house current occupational exposures/hazards: No caffeine: No
== END ==
PROVIDERS: PCP Internal Medicine Adolescent Medicine; Visit Provider Student in an Organized Health Care Education/Training Program
DX: M50.10 Cervical disc disorder with radiculopathy, unspecified cervical region (principal); M51.16 Intervertebral disc disorders with radiculopathy, lumbar region; M79.10 Myalgia, unspecified site
CPT/HCPCS: 99212; G0463

== ENCOUNTER 2023-04-20 19:50 | Observation (INO) | payer MEDICARE, OTHER, SELFPAY ==
[2023-04-20 19:51] VITALS: BP 157/73; PULSE 94; RESP 16; TEMP 36.8; O2SAT 97; BMI 31.9
[2023-04-20 20:00] VITALS: BP 157/73; PULSE 94; RESP 18; O2SAT 98
[2023-04-20 20:02] VITALS: BMI 31.9
--- NOTE | 2023-04-20 20:03 | XR_ITS ---
PROCEDURE INFORMATION: Exam: XR Right Elbow Exam date and time: 04/20/2023 8:24 PM Age: 78 years old Clinical indication: Injury or trauma; Fall; Blunt trauma (contusions or hematomas); Elbow; Right TECHNIQUE: Imaging protocol: Radiologic exam of the right elbow. Views: 3 or more views. COMPARISON: No relevant prior studies available. FINDINGS: Bones/joints: Normal. Soft tissues: Normal. IMPRESSION: No acute findings.
--- NOTE | 2023-04-20 20:03 | XR_ITS ---
PROCEDURE INFORMATION: Exam: XR Right Knee Exam date and time: 04/20/2023 8:22 PM Age: 78 years old Clinical indication: Injury or trauma; Fall; Blunt trauma; Knee; Right TECHNIQUE: Imaging protocol: Radiologic exam of the right knee. Views: 3 views. COMPARISON: CR XR KNEE RT 3V 06/02/2022 11:40 AM FINDINGS: Bones/joints: Acute transverse patellar fracture with significant separation of the fracture fragments by approximately 2 cm. Soft tissues: Extensive soft tissue swelling. IMPRESSION: Acute transverse patellar fracture with significant separation of the fracture fragments by approximately 2 cm.
--- NOTE | 2023-04-20 20:03 | XR_ITS ---
PROCEDURE INFORMATION: Exam: XR Chest Exam date and time: 04/20/2023 8:21 PM Age: 78 years old Clinical indication: Injury or trauma; Fall; Blunt trauma (contusions or hematomas) TECHNIQUE: Imaging protocol: Radiologic exam of the chest. Views: 1 view. COMPARISON: CR XR MULTIPLE SPINE 6+V 11/12/2019 3:37 PM FINDINGS: Lungs: Unremarkable. No consolidation. Pleural spaces: Unremarkable. No pleural effusion. No pneumothorax. Heart/Mediastinum: Unremarkable. No cardiomegaly. Bones/joints: Suboptimally visualized. Osteopenia. Could not exclude fractures of the left posterolateral upper ribs. IMPRESSION: 1. No evidence of acute cardiopulmonary disease. 2. Limited osseous evaluation. Recommend follow-up with dedicated rib series or computerized tomography to further evaluate for possible rib fractures..
--- NOTE | 2023-04-20 20:28 | XR_ITS ---
PROCEDURE INFORMATION: Exam: XR Right Hip Exam date and time: 04/20/2023 8:27 PM Age: 78 years old Clinical indication: Injury or trauma; Fall; Blunt trauma (contusions or hematomas); Right; Hip; Additional info: Fall with RT hip pain TECHNIQUE: Imaging protocol: Radiologic exam of the right hip. Views: 2 or 3 views hip with pelvis when performed. COMPARISON: CR XR MULTIPLE SPINE 6+V 11/12/2019 3:37 PM FINDINGS: Bones/joints: Osteopenia. No evidence of acute osseous injury. Soft tissues: Unremarkable. IMPRESSION: No evidence of acute osseous injury.
--- NOTE | 2023-04-20 20:40 | HMH.EDFALL ---
Discharge Plan Disposition Patient Disposition: Admitted Chief Complaint: Fall Clinical Impressions Clinical Impression: Patellar fracture, Contusion of elbow, right Discharge ED Provider: Lamar (ED)Aroldo Fall HPI General Chief Complaint: Fall Stated Complaint: [id number] RT knee inj Time Seen by Provider: 04/20/23 20:15 Mode of Arrival: Wheelchair Source of Information: Patient, Relative and Medical Record Limitations: No Limitations Description of Symptoms (Recalled from ER Triage Doc. by RN): pt states she slip in a water puddle landing on rt side. pt denies LOC. pt c/o rt knee and elbow pain History of Present Illness HPI Narrative: slip fall with rt elbow and rt knee and hip injury- no loc or other c/o MD complaint: fall Onset (ago): hour(s) Fall from: standing Fall witnessed: no Place fall occurred: home Loss of consciousness: none Prolonged down time: no Context: tripped/slipped Location of injury - extremities: Right: elbow and knee Severity: moderate Associated symptoms (after fall): denies Related Data Home Medications Medication Instructions Recorded Confirmed esomeprazole magnesium 40 mg 40 mg PO HS Heartburn 05/30/18 04/20/23 capsule,delayed release levothyroxine 112 mcg tablet 112 mcg PO DAILY Supplement 05/30/18 04/20/23 losartan 100 mg tablet 100 mg PO DAILY High blood pressure 05/30/18 04/20/23 nebivolol 5 mg tablet 5 mg PO DAILY High blood pressure 05/30/18 04/20/23 vitamin B complex 1 each PO DAILY Supplement 05/30/18 04/20/23 diazepam 5 mg tablet 5 mg PO DAILY dizziness 12/08/18 04/20/23 melatonin 5 mg tablet 5 mg PO DAILY sleep 12/08/18 04/20/23 furosemide 20 mg tablet 20 mg PO DAILY Edema 08/13/19 04/20/23 simvastatin 40 mg tablet (Zocor) 40 mg PO QHS hld 09/06/19 04/20/23 amlodipine 10 mg tablet 10 mg PO DAILY . 04/20/23 04/20/23 budesonide 3 mg 9 mg PO DAILY . 04/20/23 04/20/23 capsule,delayed,extended release empagliflozin 25 mg tablet 35 mg PO DAILY . 04/20/23 04/20/23 (Jardiance) omega-3 acid ethyl esters 1 gram 1 g PO BID . 04/20/23 04/20/23 capsule (Lovaza) Allergies Allergy/AdvReac Type Severity Reaction Status Date / Time codeine [CODEINE] Allergy Unknown BLOOD Verified 09/06/19 15:04 PRESSURE DROPS erythromycin base Allergy Unknown GI UPSET Verified 09/06/19 15:04 [ERYTHROMYCIN BASE] gabapentin [From NEURONTIN] Allergy Unknown LEG Verified 09/06/19 15:04 SWELLING, RASH methylprednisolone Allergy Unknown HEART RACES Verified 09/06/19 15:04 [METHYLPREDNISOLONE] prednisone [PREDNISONE] Allergy Unknown HEART Verified 09/06/19 15:04 RACES, FT SWELLING PFSH PFSH Disclaimer: The information contained in this section may have been updated after the patient was seen, as this information can be updated by other users. Social History Smoking Status: Former smoker alcohol intake: never current occupational status: retired Travel in the last 8 weeks: None household members: none housing: house current occupational exposures/hazards: No caffeine: No ROS Obtained: Yes All systems reviewed & no additional complaints except as documented Physical Exam General General appearance: alert Head Head exam: normocephalic Eye Eye exam: Present PERRL and EOMI ENT ENT exam: Present mucous membranes moist Neck Neck exam: Present trachea midline Respiratory Respiratory exam: Present normal lung sounds bilaterally; Absent respiratory distress Cardiovascular Cardiovascular exam: Present regular rate and systolic murmur Abdominal Exam Abdominal exam: Present soft Expanded Lower Extremity Exam Right: Hip/Pelvis exam: Present pelvis stable Knee exam: Present tenderness, swelling, deformity and effusion; Absent full ROM or knee extension intact Neurovascular/Tendon exam: Absent pulse deficit or motor deficit Gait: unable to bear weight Neurological Exam Neurological exam: Present aler
--- NOTE | 2023-04-20 20:48 | CT_ITS ---
PROCEDURE INFORMATION: Exam: CT Right Lower Extremity Without Contrast, Knee Exam date and time: 04/20/2023 9:25 PM Age: 78 years old Clinical indication: Injury or trauma; Fall; Additional info: Confirm fracture on xray TECHNIQUE: Imaging protocol: CT of the right lower extremity without contrast was performed. Exam focused on the knee. 3D rendering (Not supervised by radiologist): MIP and/or 3D reconstructed images were created by the technologist. Radiation optimization: All CT scans at this facility use at least one of these dose optimization techniques: automated exposure control; mA and/or kV adjustment per patient size (includes targeted exams where dose is matched to clinical indication); or iterative reconstruction. REPORTING DATA: Count of CT and Cardiac NM exams in prior 12 months: This patient has received 0 known CTs and 0 known cardiac nuclear medicine studies in the 12 months prior to the current study. COMPARISON: CR XR KNEE RT 3V 04/20/2023 8:22 PM FINDINGS: Bones/joints: Transverse patellar fracture. Medial fragment separation 9 mm. Lateral fragment separation 2 cm. Smaller additional comminuted fragments demonstrated arising from the distal pole fragment. No additional fractures within the field of view demonstrated. Slight lateral displacement of the patella with respect to the trochlear groove. Medial patellar retinacular injury could not be excluded. Soft tissues: Extensive edematous changes involving the prepatellar bursa as well as extending into the subcutaneous tissues along the medial and lateral knee compartments. Incomplete visualization of suprapatellar effusion. IMPRESSION: 1. Transverse patellar fracture. Medial fragment separation 9 mm. Lateral fragment separation 2 cm. Smaller additional comminuted fragments demonstrated arising from the distal pole fragment. 2. Slight lateral displacement of the patella with respect to the trochlear groove. Medial patellar retinacular injury could not be excluded.
[2023-04-20 21:00] VITALS: BP 142/61; PULSE 90; RESP 18; O2SAT 96
--- NOTE | 2023-04-20 21:25 | PC.NURSE ---
patient to radiology
[2023-04-20 22:01] VITALS: BP 135/68; PULSE 83; RESP 20; O2SAT 98
--- NOTE | 2023-04-20 22:03 | PC.NURSE ---
order desk caller ortho paged for ED doctor
--- NOTE | 2023-04-20 22:04 | PC.NURSE ---
Dr. Newton on phone with ortho
--- NOTE | 2023-04-20 22:09 | PC.NURSE ---
Dr. Bardales paged, on phone with Dr. Newton at this time
--- NOTE | 2023-04-20 22:14 | PC.NURSE ---
PATIENT ADMITTED TO [facility],PATELLA FX. TO SERVICE OF DR. LINDER.
[2023-04-20 22:23] LABS: Coronavirus 19, PCR Not Detected (NotDetected); Influenza A, PCR Not Detected (NotDetected); Influenza B, PCR Not Detected (NotDetected)
[2023-04-20 22:51] LABS: Basophils % 0.3 % (0.1-2.0); Eosinophils # 0.1 K/mm3 (0.0-0.4); Eosinophils % 0.9 % (0.1-12.0); Hematocrit 32.5 % (37.0-47.0); Hemoglobin 10.3 g/dL (12.2-16.2); Lymphocytes # 2.9 K/mm3 (0.7-4.5); Lymphocytes % 18.9 % (10-50); Mean Corpuscular HGB Conc 31.5 g/dL (31.8-35.4); Mean Corpuscular Hemoglobin 22.9 pg (27.0-31.2); Mean Corpuscular Volume 72.8 fl (81-99); Mean Platelet Volume 8.8 fl (7.4-10.4); Monocytes % 6.9 % (1.7-9.3); Platelet Count 402 K/mm3 (142-424); Red Blood Count 4.47 M/mm3 (4.20-5.40); Red Cell Distribution Width 17.1 % (11.5-17.5)
[2023-04-20 22:56] LABS: Chloride 97 mmol/L (98-107); Potassium 3.7 mmoL/L (3.5-5.1); Sodium 133 mmol/L (136-145)
[2023-04-20 22:58] LABS: Blood Urea Nitrogen 14 mg/dl (7-17); Creatinine Clearance Estimated 53 mL/min (50-200); Estimated Glomerular Filt Rate 40 ml/min (>60); GFR (African American) 48 ML/MIN (>60); White Blood Count 14.9 K/mm3 (4.8-10.8)
[2023-04-20 22:59] LABS: Alanine Aminotransferase 36 U/L (12-78); Albumin Level 4.1 g/dl (3.5-5.0); Albumin/Globulin Ratio 1.1 (1.1-1.8); Alkaline Phosphatase 73 U/L (38-126); Anion Gap 13.7 mEq/L (5-15); Aspartate Amino Transferase 50 U/L (14-36); Bilirubin,Total 0.6 mg/dl (0.2-1.3); Calcium 8.6 mg/dl (8.4-10.2); Carbon Dioxide 26 mmol/L (22.0-30.0); Globulin 3.7 g/dL (1.3-3.2); Glucose 122 mg/dl (74-100); Total Protein,Serum 7.8 g/dl (6.3-8.2)
[2023-04-20 23:32] VITALS: BP 135/68; PULSE 83; RESP 16; TEMP 36.8; O2SAT 96
--- NOTE | 2023-04-20 23:43 | PC.NURSE ---
pt arrived to floor at this time
[2023-04-21] VITALS: BP 160/87; PULSE 84; RESP 18; TEMP 36.6; O2SAT 96; BMI 34.0
[2023-04-21 04:00] VITALS: BP 158/68; PULSE 70; RESP 18; TEMP 37.2; O2SAT 98; BMI 34.0
--- NOTE | 2023-04-21 07:30 | EXP.HP ---
History of Present Illness *Admission Date: 04/20/23 *Reason for visit:: Fall at home with right patellar fracture *History of present illness: 78-year-old female who is extremely mobile and active who was finishing up her lawnmowing activities yesterday and had sprayed off the lawnmower and used an air compressor to dry off the lawnmower when she was walking through the garage/shop area and slipped on a puddle of water and fell down onto her right knee. Was unable to walk and was eventually brought to the ER by her family. In the ER multiple x-rays were done because of some neck pain and arm pain, found to have a significant medial transverse patellar fracture with almost 9 mm of separation. Orthopedics was consulted who recommended follow-up in their clinic, but given her inability to walk, compromised functional status and need for IV pain control she was admitted for observation and orthopedic consultation as an inpatient. She denies syncope, presyncope, chest pain, palpitations or other medical reasons for falling. Has been very active as noted above. [facility] Disclaimer: The information contained in this section may have been updated after the patient was seen, as this information can be updated by other users. Medical History (Updated 04/21/23 @ 07:34 by Enoch Bardales MD) Fibromyalgia Neuropathy Obstructive sleep apnea Sjogrens syndrome Surgical History (Updated 04/21/23 @ 00:15 by Mariza Luna RN) H/O: hysterectomy History of thyroidectomy, total Hx of cholecystectomy Social History (Updated 04/21/23 @ 00:06 by Mariza Luna RN) Smoking Status: Former smoker alcohol intake: never current occupational status: retired Travel in the last 8 weeks: None household members: none housing: house current occupational exposures/hazards: No caffeine: No Review of Systems Review of Systems Review of systems:: pertinent systems reviewed and negative unless documented below Meds Home Medications and Allergies Home Medications Medication Instructions Recorded Confirmed Type esomeprazole magnesium 40 mg 40 mg PO HS Heartburn 05/30/18 04/21/23 History capsule,delayed release levothyroxine 112 mcg tablet 112 mcg PO DAILY Supplement 05/30/18 04/21/23 History losartan 100 mg tablet 100 mg PO DAILY High blood pressure 05/30/18 04/21/23 History nebivolol 5 mg tablet 5 mg PO DAILY High blood pressure 05/30/18 04/21/23 History vitamin B complex 1 each PO DAILY Supplement 05/30/18 04/21/23 History diazepam 5 mg tablet 5 mg PO HS dizziness 12/08/18 04/21/23 History melatonin 5 mg tablet 5 mg PO HS sleep 12/08/18 04/21/23 History furosemide 20 mg tablet 20 mg PO DAILY Edema 08/13/19 04/21/23 History simvastatin 40 mg tablet (Zocor) 40 mg PO QHS hld 09/06/19 04/21/23 History amlodipine 10 mg tablet 10 mg PO DAILY . 04/20/23 04/21/23 History budesonide 3 mg 9 mg PO HS . 04/20/23 04/21/23 History capsule,delayed,extended release empagliflozin 25 mg tablet 35 mg PO DAILY . 04/20/23 04/21/23 History (Jardiance) omega-3 acid ethyl esters 1 gram 1 g PO BID . 04/20/23 04/21/23 History capsule (Lovaza) New Prescriptions to Start Prescriptions: Allergies Allergy/AdvReac Type Severity Reaction Status Date / Time codeine [CODEINE] Allergy Unknown BLOOD Verified 09/06/19 15:04 PRESSURE DROPS erythromycin base Allergy Unknown GI UPSET Verified 09/06/19 15:04 [ERYTHROMYCIN BASE] gabapentin [From NEURONTIN] Allergy Unknown LEG Verified 09/06/19 15:04 SWELLING, RASH methylprednisolone Allergy Unknown HEART RACES Verified 09/06/19 15:04 [METHYLPREDNISOLONE] prednisone [PREDNISONE] Allergy Unknown HEART Verified 09/06/19 15:04 RACES, FT SWELLING Exam Data for Last 24 hours Vital signs and Labs for Last 24 Hours: Temp Pulse Resp BP Pulse Ox 98.9 F 70 18 158/68 H 98 04/21/23 04:00 04/21/23 04:00 04/21/23 04:00 04/21/23 04:00
[2023-04-21 07:55] VITALS: BP 153/75; PULSE 70; RESP 18; TEMP 36.8; O2SAT 96
[2023-04-21 08:00] VITALS: O2SAT 97
--- NOTE | 2023-04-21 09:15 | EXP.ORTH.CON ---
History of Present Illness *Admission Date: 04/20/23 *History of present illness: 78-year-old female who is extremely mobile and active who was finishing up her lawnmowing activities yesterday and had sprayed off the lawnmower and used an air compressor to dry off the lawnmower when she was walking through the garage/shop area and slipped on a puddle of water and fell down onto her right knee. Was unable to walk and was eventually brought to the ER by her family. In the ER multiple x-rays were done because of some neck pain and arm pain, found to have a significant medial transverse patellar fracture with almost 9 mm of separation. Orthopedics was consulted who recommended follow-up in their clinic, but given her inability to walk, compromised functional status and need for IV pain control she was admitted for observation and orthopedic consultation as an inpatient. She denies syncope, presyncope, chest pain, palpitations or other medical reasons for falling. Has been very active as noted above. [facility] Disclaimer: The information contained in this section may have been updated after the patient was seen, as this information can be updated by other users. Medical History (Updated 04/21/23 @ 09:16 by Lars Gee DO) Fibromyalgia Neuropathy Obstructive sleep apnea Sjogrens syndrome Surgical History (Updated 04/21/23 @ 00:15 by Mariza Luna RN) H/O: hysterectomy History of thyroidectomy, total Hx of cholecystectomy Social History (Updated 04/21/23 @ 00:06 by Mariza Luna RN) Smoking Status: Former smoker alcohol intake: never current occupational status: retired Travel in the last 8 weeks: None household members: none housing: house current occupational exposures/hazards: No caffeine: No Meds Home Medications and Allergies Home Medications Medication Instructions Recorded Confirmed Type esomeprazole magnesium 40 mg 40 mg PO HS Heartburn 05/30/18 04/21/23 History capsule,delayed release levothyroxine 112 mcg tablet 112 mcg PO DAILYDM Hypothyroidism 05/30/18 04/21/23 History losartan 100 mg tablet 100 mg PO DAILY High blood pressure 05/30/18 04/21/23 History nebivolol 5 mg tablet 5 mg PO DAILY High blood pressure 05/30/18 04/21/23 History vitamin B complex 1 each PO DAILY Supplement 05/30/18 04/21/23 History diazepam 5 mg tablet 5 mg PO HS Insomnia 12/08/18 04/21/23 History melatonin 5 mg tablet 5 mg PO HS sleep 12/08/18 04/21/23 History furosemide 20 mg tablet 20 mg PO DAILY Edema 08/13/19 04/21/23 History simvastatin 40 mg tablet (Zocor) 40 mg PO QHS Cholesterol 09/06/19 04/21/23 History amlodipine 10 mg tablet 10 mg PO DAILY High Blood Pressure 04/20/23 04/21/23 History budesonide 3 mg 9 mg PO HS colitis 04/20/23 04/21/23 History capsule,delayed,extended release empagliflozin 25 mg tablet 25 mg PO DAILY Diabetes 04/20/23 04/21/23 History (Jardiance) omega-3 acid ethyl esters 1 gram 1 g PO BID fibromyalgia 04/20/23 04/21/23 History capsule (Lovaza) albuterol sulfate 90 mcg/actuation 2 puff inhalation Q6HP PRN 04/21/23 04/21/23 History aerosol inhaler Shortness Of Breath tramadol 50 mg tablet 50 mg PO BIDP PRN Pain 04/21/23 04/21/23 History New Prescriptions to Start Prescriptions: Allergies Allergy/AdvReac Type Severity Reaction Status Date / Time codeine [CODEINE] Allergy Unknown BLOOD Verified 09/06/19 15:04 PRESSURE DROPS erythromycin base Allergy Unknown GI UPSET Verified 09/06/19 15:04 [ERYTHROMYCIN BASE] gabapentin [From NEURONTIN] Allergy Unknown LEG Verified 09/06/19 15:04 SWELLING, RASH methylprednisolone Allergy Unknown HEART RACES Verified 09/06/19 15:04 [METHYLPREDNISOLONE] prednisone [PREDNISONE] Allergy Unknown HEART Verified 09/06/19 15:04 RACES, FT SWELLING Ortho Exam (Inpt) Vital signs and Labs for Last 24 Hours: Temp Pulse Resp BP Pulse Ox 98.3 F 70 18 153/75 H 96 04/21
--- NOTE | 2023-04-21 09:52 | SW/DCPLANNER ---
The plan for this patient is to discharge home and follow up with Ortho next week for surgery. PT evaluated patient and stated that she is safe to return home with family and for home health to be arranged after surgery. Patient stated that she will have family at home to assist her. Patient may discharge home later today.
--- NOTE | 2023-04-21 09:54 | HMH.PTEV ---
Physical Therapy Evaluation Rehab PT IP Evaluation Start: 04/21/23 07:35 Freq: ONCE Status: Active Protocol: Document 04/21/23 09:48 PHORNE (Rec: 04/21/23 09:54 PHORNE [id number]) Subjective/History History History 78 yowf adm to [facility] after ground level fall at home with resulting R patella fx. Ortho reports surgery will be done as outpatient and she is allowed to WBAT with knee immobilizer in place. PMH of Fibromyalgia and sjogren's syndrome. She reports she lives alone, 1-2 steps to enter the home, and she is generally independent with all mobility at baseline. Subjective Subjective Pt reports minimal pain in the R LE this am, increased edema throughout the R LE. Rehab PT IP Eval Objective Appearance Patient Behavior Appropriate Patient Orientation Person,Place,Time Difficulty following instructions none Speech Pattern Clear Ambulation Patient Able to Ambulate Yes Ambulation Observation IP General Gait Pattern Observation Antalgic Gait Ambulation Distance (feet) 30 Ambulation Assistive Device Rolling Walker Ambulation Ability Supervision/Stand by Balance Ability to Arise Able, uses arms to help Sitting Balance Steady, safe Standing Balance Steady, wide stance Dynamic Sitting Balance Ability Good Dynamic Standing Balance Ability Good Transfers Bed Transfer Ability Supervision/Stand by Chair Transfer Ability Supervision/Stand by Sit to Stand Bed Transfer Ability Supervision/Stand by Sit to Stand Chair Transfer Ability Supervision/Stand by ROM All Extremities PT ROM Status WFL Abnormal ROM Comment except R knee NT MMT All Extremities PT MMT WFL Abnormal MMT Grade except R knee NT Rehab PT IP prob,goals,plan Problems Date of Evaluation: 04/21/23 Discharge Plan PT Discharge Plan Pt is appropriate to return home once medically stable for d/c. Recommend RW and BSC for home use. No home health therapy necessary prior to surgery if she continues to have family assistance avaialable as reported. G -code Required
--- NOTE | 2023-04-21 09:57 | HMH.OTEV ---
OT Inpatient Evaluation Rehab OT IP Evaluation Start: 04/21/23 07:35 Freq: ONCE Status: Active Protocol: Document 04/21/23 09:51 [facility] (Rec: 04/21/23 09:57 [facility] [id number]) Rehab OT IP Assessment Subjective History Pt oriented x 4 on arrival. Pt's daughter present during therapy evaluation and supportive. Pt was admitted on 04/20/23 due to a fall at home with a right patellar fx. 78-year-old female who is extremely mobile and active who was finishing up her lawnmowing activities yesterday and had sprayed off the lawnmower and used an air compressor to dry off the lawnmower when she was walking through the garage/shop area and slipped on a puddle of water and fell down onto her right knee. Was unable to walk and was eventually brought to the ER by her family. Prior to being in the hospital, pt was completely independent with all ADLs and IADLs. Pt still drove and did not require any type of AE during daily activities or functional transfers. Pt has a past medical history of: Fibromyalgia Neuropathy Obstructive sleep apnea Sjogrens syndrome Subjective I think I am doing better. Objective Patient Orientation Person,Place,Birthday,Month Upper Extremity Gross ROM WFL Bed Mobility bed mobility-scooting,bed mobility - supine/sit,bed mobility - rolling Assist Level Supervision/Stand by Transfer Training Sit/Stand Transfer Assist Level Supervision/Stand by Chair Transfer Ability Supervision/Stand by Chair Transfer Technique Sit to/from Ambulatory Chair Transfer Assistive Devices Rolling Walker Lower Body Dressing Ability Standby Assistance Rehab OT IP prob,goals,plan Problems Date of Evaluation: 04/21/23 Rehab Potential Rehab Potential
--- NOTE | 2023-04-21 11:44 | EXP.DC.SUM ---
General Admission date:: 04/20/23 Discharge date: 04/21/23 HPI HPI HPI: 78-year-old female who is extremely mobile and active who was finishing up her lawnmowing activities yesterday and had sprayed off the lawnmower and used an air compressor to dry off the lawnmower when she was walking through the garage/shop area and slipped on a puddle of water and fell down onto her right knee. Was unable to walk and was eventually brought to the ER by her family. In the ER multiple x-rays were done because of some neck pain and arm pain, found to have a significant medial transverse patellar fracture with almost 9 mm of separation. Orthopedics was consulted who recommended follow-up in their clinic, but given her inability to walk, compromised functional status and need for IV pain control she was admitted for observation and orthopedic consultation as an inpatient. She denies syncope, presyncope, chest pain, palpitations or other medical reasons for falling. Has been very active as noted above. Hospital Course Hospital Course Hospital Course: Patient was admitted, pain control was achieved with IV morphine, patient did well with this. Orthopedics consultation was obtained, they felt that she would do better by delaying repair of the patellar fracture for 1 week to allow soft tissue swelling to go down. PT evaluated her and felt that she did a good job transferring with a knee immobilizer and her family will be with her 09/05 over the next week until surgery takes place. As result she be discharged home, will provide a prescription for rolling walker and bedside commode, Percocet for narcotic pain relief for her significant fracture pain. Follow-up with orthopedics next week and with me Tuesday. Exam Data for Last 24 hours Vital signs and Labs for Last 24 Hours: Temp Pulse Resp BP Pulse Ox 98.3 F 70 18 153/75 H 97 04/21/23 07:55 04/21/23 07:55 04/21/23 07:55 04/21/23 07:55 04/21/23 08:00 Laboratory Results - last 24 hr 04/20/23 22:14: SARS-CoV-2 (PCR) Not detected, Influenza A Untype (PCR) Not detected, Influenza Type B (PCR) Not detected 04/20/23 22:45: WBC 14.9 H, RBC 4.47, Hgb 10.3 L, Hct 32.5 L, MCV 72.8 L, MCH 22.9 L, MCHC 31.5 L, RDW 17.1, Plt Count 402, MPV 8.8, Neut % (Auto) 73.0, Lymph % (Auto) 18.9, [place] % (Auto) 6.9, Eos % (Auto) 0.9, Baso % (Auto) 0.3, Neut # (Auto) 11.0 H, Lymph # (Auto) 2.9, [place] # (Auto) 1.0, Eos # (Auto) 0.1, Baso # (Auto) 0.0, Sodium 133 L, Potassium 3.7, Chloride 97 L, Carbon Dioxide 26, Anion Gap 13.7, BUN 14, Creatinine 1.30 H, Estimated Creat Clear 53, Estimated GFR 40 L, Est GFR ( Amer) 48 L, Glucose 122 H, Calcium 8.6, Total Bilirubin 0.6, AST 50 H, ALT 36, Alkaline Phosphatase 73, Total Protein 7.8, Albumin 4.1, Globulin 3.7 H, Albumin/Globulin Ratio 1.1 I & O for Last 24 hours: Intake & Output 04/18/23 04/19/23 04/20/23 04/21/23 11:59 11:59 11:59 11:59 Output Total 1950 Balance -1950 Weight 224 lb 8 oz Constitutional Constitutional: no acute distress *Routine HEENT Exam Head: Present normocephalic Eye: Present EOMI and PERRL ENT: Present mucous membranes moist *Routine Neck Exam Neck: Present supple; Absent lymphadenopathy *Routine Respiratory Exam Respiratory: Present CTA bilaterally *Routine Cardiovascular Exam Cardiovascular: Present RRR and murmur *Routine Abdominal Exam Abdominal: Present soft and normoactive bowel sounds; Absent tenderness *Routine Extremities Exam Extremities: Absent cyanosis, clubbing or edema Comments: Right knee in immobilizing device, please see orthopedic notes for details. No distal edema or pulse deficits in either leg *Routine Skin Exam Skin: Present warm; Absent rash *Routine Neurological Exam Neurological: Present alert and oriented X3 Results Data Completed and Pending Labs on day of discharge: Labs from last 24 hours 04/20/23 04/20/23 22:45 22:14 WBC 14.9 H RBC 4.47 Hgb 10.3 L Hct 3
[2023-04-21 11:46] VITALS: BP 110/54; PULSE 65; RESP 18; TEMP 36.3; O2SAT 93
--- NOTE | 2023-04-21 12:12 | HMH.PHAINT1 ---
Pharmacy Intervention Comments: patient's discharge medication reviewed with patient: - Oxycodone/APAP (may cause constipation and nausea) Patient had no further questions. -Wilver Ko, Pharm Student
--- NOTE | 2023-04-22 13:32 | CARE MANAGER ---
Spoke with patient for post-discharge phone interview, she is having surgery on Tuesday04/25/23. No issues noted.
== END 2023-04-21 12:53 | disposition home or self-care (01) ==
LOC: ER 20:07 → 2ND 22:14
PROVIDERS: Admitting Provider Internal Medicine Adolescent Medicine; Emergency Provider Emergency Medicine; PCP Internal Medicine Adolescent Medicine; Visit Provider Internal Medicine Adolescent Medicine
DX: S50.01XA Contusion of right elbow, initial encounter; M79.7 Fibromyalgia; G62.9 Polyneuropathy, unspecified; S82.031A Displaced transverse fracture of right patella, initial encounter for closed fracture; W01.0XXA Fall on same level from slipping, tripping and stumbling without subsequent striking against object, initial encounter; Y92.015 Private garage of single-family (private) house as the place of occurrence of the external cause; Z79.899 Other long term (current) drug therapy
CPT/HCPCS: G0378; 71045; 73080; 73502; 73562; 73700; 80053; 85025; 87636; 97163; 97165; 99285

== ENCOUNTER 2023-04-25 06:35 | Day surgery (SDC) | payer MEDICARE, OTHER, SELFPAY ==
--- NOTE | 2023-04-21 14:39 | CARE MANAGER ---
Patient will need bedside commode and rolling walker for home use, she requested [facility]. Order and demographics were faxed and DME was delivered to patient per Vivian Hope at [facility].
[2023-04-22 09:38] VITALS: BMI 31.9
[2023-04-25] VITALS (11 sets, daily range): BP systolic 108–138; BP diastolic 51–85; PULSE 73–84; RESP 16–22; TEMP 36.6–43; O2SAT 93–99
[2023-04-25 06:57] LABS: Microscopic, Urine URINE MICROSCOPIC (MICROSCOPIC)
[2023-04-25 07:00] LABS: Appearance,Urine CLEAR (Clear); Bilirubin,Urine Negative (Negative); Blood, Urine TRACE-I (Negative); Color,Urine YELLOW (Yellow); Glucose,Urine (UA) 2+ (Negative); Ketones,Urine Negative (Negative); Leukocyte Esterase,Urine TRACE (Negative); Nitrate,Urine POSITIVE (Negative); Protein,Urine 1+ (Negative); Specific Gravity, Urine 1.015 (1.005-1.030); Urobilinogen,Urine 0.2 EU/dl (0.2)
[2023-04-25 07:27] LABS: Bacteria,Urine 3+ /lpf; RBC,Urine Occasional #/hpf (0-3)
--- NOTE | 2023-04-25 07:38 | P.PN_ITS ---
[facility] Disclaimer: The information contained in this section may have been updated after the patient was seen, as this information can be updated by other users. Medical History Fibromyalgia Neuropathy Obstructive sleep apnea Sjogrens syndrome Surgical History H/O: hysterectomy History of thyroidectomy, total Hx of cholecystectomy Hx of spinal surgery Hx of submucous nasal surgery Family History Other Family history of atrial fibrillation Family history of cancer Family history of diabetes mellitus type II Social History Smoking Status: Former smoker alcohol intake: never substance use type: denies use current occupational status: retired Travel in the last 8 weeks: Inside the [facility] household members: none housing: house lives independently: No marital status: education level: high school service: No current occupational exposures/hazards: No caffeine: No do you feel safe at home: Yes victim of physical abuse: No victim of emotional abuse: No victim of sexual abuse: No would you like helpful sources: No [facility] Anesthesia Checklist Patient Identification Patient Identification: Arm Band Structural Data Admitted From: Home Planned Operative Procedure/s: ORIF Right Patella Consent for Planned Operative Procedure(s) Verified: Yes Verified Documents: Surgical Consent NPO Status Verified Time NPO: 00:00 Additional verifications Anesthesia Reactions: No Hx Blood Transfusions: No Blood Transfusion Reaction: No Airway Assessment C-Spine Mobility Assessed: Yes TMJ Mobility Assessed: Yes Dentition: Good Dentition Neurological Assessment Level of Consciousness: Awake and Alert Anesthesia Plan Anesthesia Risk discussed: Yes Anesthesia Plan: Verified ASA Class: III Anesthesia Type: General w/block (U/S guided Right Femoral Nerve Block. Risks/benefits explained. Pt and family member verbalized understanding)
[2023-04-25 07:51] LABS: POC Glucose,Bedside 143 (70-110)
--- NOTE | 2023-04-25 08:30 | XR_ITS ---
FINAL REPORT CLINICAL HISTORY: ORIF PATELLA 54 SECONDS FLUORO TIME FINDINGS: FLUOROSCOPY LESS THAN 1 HOUR HISTORY: ORIF PATELLA FINDINGS: Fluoroscopic guidance was provided for patellar orthopedic screw placement. A single spot film was obtained. 54 Seconds of fluoroscopy time were used. IMPRESSION: As above. Reviewed, Interpreted and Dictated by Andrés Coronel III, MD Transcribed by Shanti Meyer Authenticated and . [facility]
--- NOTE | 2023-04-25 11:05 | P.OP_ITS ---
Date of procedure: 04/25/23 Pre-op Diagnosis:: Right displaced patella fracture, transverse Post-op Diagnosis:: Same Procedure performed:: Open reduction internal fixation right patella Surgeon:: Lars Gee DO DIRECTOR OF TEACHING AND LEARNING:: Other Anesthesia: GETA and regional Estimated blood loss (mL): 10 Clinical Note:: Arthrex cannulated patella screws with tension band wiring supplement, (fiber tape) Operative findings:: Displaced patella fracture mid body Operative note:: Patient was identified preoperatively. Right knee marked with yes my initials. Transferred operative suite. Placed upon the operating bed general anesthesia administered. Underwent a block with anesthesia prior to procedure. Right lower extremity was then prepped and draped normal sterile fashion. Once prepped and draped final operative timeout performed to identify proper patient procedure and extremity. Everyone involved the case agreed. No count indication beginning. Did receive preoperative antibiotics. Marking pen was used to make plan midline incision. Esmarch was used to exsanguinate extremity. Pneumatic tourniquet inflated to 300 mmHg. Skin knife was used incise the skin. Careful dissection was taken down to show a midbody displaced patella fracture. The retinaculum was traumatically torn. Hematoma was evacuated. Irrigation of the free edges of the fracture were performed. Pulmonary fixation obtained with large [id number] clamp. X-rays were taken on the AP and lateral views to show proper reduction. 2 K wires were then placed superior to inferior in the patella. Using the patella clamp and the depth gauge with the lines were measured to size 36. Cannulated drill bit was used to drill both holes. Then size 36 cannulated screw was placed followed by a size 34 cannulated screw. K wires removed nitinol wire was placed through the K wire and a tensioning device for the fiber tape was utilized with the fiber tape cerclage method. Was tightened sequentially tied and then retightened. This was repeated for the other screw with 2 cerclages. This gave good stable fixation of patella the knee was placed through flexion extension no displacement of the fracture was noted. Copious irrigation wound performed. Retinaculum closed with Ethibond suture. Deep layers closed with 0 Vicryl. Subcutaneous with 2-0 Vicryl. Surgical clips in the skin for closure. Sterile dressing placed. Ronnie bandage wrapped from foot to thigh. Patient be placed in a locking T scope brace in recovery room. Condition: stable Disposition: PACU Complications:: None apparent
--- NOTE | 2023-04-25 11:08 | EXP.ANES.I ---
[facility] Anesthesia Record Part I Anesthesia Record I Intake, IV Amount: 1,300 Estimated blood loss (mL): 35 Urine output (mL): 0 Blood Pressure: 108/53 SaO2: 93 Pulse Rate: 75 Respiratory Rate: 22 Temperature: 98 F Patient is:: Drowsy and Stable Stable to PACU at:: 11:05
--- NOTE | 2023-04-25 12:41 | SUR.PHASEII ---
pt felt a pop when getting in her car. Dr. Gee made aware. nno.
--- NOTE | 2023-04-26 07:21 | P.PNANES_ITS ---
[facility] Anesthesia Record Part II Anesthesia Record Part II Discharge Time: 11:44 Destination: Surgical Day Care (OP Surgery) PACU nurse assessment reviewed?: Yes Patient Condition:: Good Anesthesia Complications:: None Swallowing reflex intact?: Yes Cyanosis?: No Blood Pressure: 123/73 Pulse Rate: 79 Temperature: 98.7 F Mental Status: Alert & Oriented Pain level:: 0 Nausea and/or vomitting:: None Intake, IV Amount: 0
[2023-04-26 07:22] VITALS: BP 123/73; PULSE 79; TEMP 37.1
--- NOTE | 2023-05-03 16:10 | P.PN_ITS ---
Subjective *Date: 05/03/23 *Time: 16:10 Interval history: This note is used to document medical necessity for wheelchair. Patient underwent open reduction internal fixation of her patella she cannot walk using a walker it is medically necessary for her to have a wheelchair for her safe re habilitation and recovery. Ortho Exam (Inpt) Vital signs and Labs for Last 24 Hours: Temp Pulse Resp BP Pulse Ox O2 Del Method O2 Flow Rate 98.7 F 73 17 122/52 L 99 Room Air 2 04/25/23 11:45 04/25/23 12:15 04/25/23 12:15 04/25/23 12:15 04/25/23 12:15 04/25/23 12:15 04/25/23 11:25
== END 2023-04-25 12:30 | disposition home or self-care (01) ==
PROVIDERS: PCP Internal Medicine Adolescent Medicine; Visit Provider Orthopaedic Surgery
PROC: (CPT 27524; principal; 2023-04-25 08:15)
DX: S82.031A Displaced transverse fracture of right patella, initial encounter for closed fracture (principal); I10 Essential (primary) hypertension; E11.9 Type 2 diabetes mellitus without complications; Z79.899 Other long term (current) drug therapy; W01.0XXA Fall on same level from slipping, tripping and stumbling without subsequent striking against object, initial encounter; Y92.015 Private garage of single-family (private) house as the place of occurrence of the external cause; Z79.84 Long term (current) use of oral hypoglycemic drugs
CPT/HCPCS: 27524; 73560; 76000; 81001; 82962; 87086; 87088; 87186; 96374; 97760; C1713; J2405

== ENCOUNTER → 2023-05-10 08:31 | Outpatient (CLI) | payer MEDICARE, OTHER, SELFPAY ==
--- NOTE | 2023-05-10 08:38 | XR_ITS ---
FINAL REPORT CLINICAL HISTORY: Rt knee pain, hx of patella fx COMPARISON: 04/20/2023 FINDINGS: Right knee Two views were obtained. There are postoperative changes of ORIF for a comminuted patellar fracture. Displacement associated with a fracture is significantly improved following the placement of 2 fixation screws. There is a small laterally displaced bone fragment. There is no subluxation. IMPRESSION: Post ORIF of a patellar fracture. Reviewed, Interpreted and Dictated by Violet Marte MD Transcribed by Naima Ko Authenticated and [facility]
[2023-05-10 08:54] LABS: Microscopic, Urine URINE MICROSCOPIC (MICROSCOPIC)
[2023-05-10 09:32] LABS: Appearance,Urine CLEAR (Clear); Bilirubin,Urine Negative (Negative); Blood, Urine Negative (Negative); Color,Urine YELLOW (Yellow); Glucose,Urine (UA) 2+ (Negative); Ketones,Urine Negative (Negative); Leukocyte Esterase,Urine 1+ (Negative); Nitrate,Urine Negative (Negative); PH,Urine 6.5 (5.0-8.5); Protein,Urine Negative (Negative); Specific Gravity, Urine <= 1.005 (1.005-1.030); Urobilinogen,Urine 0.2 EU/dl (0.2)
[2023-05-10 10:14] LABS: Bacteria,Urine 2+ /lpf
== END ==
PROVIDERS: PCP Internal Medicine Adolescent Medicine; Visit Provider Orthopaedic Surgery
DX: S82.001A Unspecified fracture of right patella, initial encounter for closed fracture (principal); S82.041A Displaced comminuted fracture of right patella, initial encounter for closed fracture; Z01.812 Encounter for preprocedural laboratory examination; B96.89 Other specified bacterial agents as the cause of diseases classified elsewhere; B95.2 Enterococcus as the cause of diseases classified elsewhere; R82.90 Unspecified abnormal findings in urine
CPT/HCPCS: 73560; 81001; 87086; 87088; 87186

== ENCOUNTER → 2023-06-07 09:21 | Outpatient (CLI) | payer MEDICARE, OTHER, SELFPAY ==
--- NOTE | 2023-06-07 09:27 | XR_ITS ---
FINAL REPORT CLINICAL HISTORY: Rt knee pain, SURGERY April COMPARISON: 05/10/2023 FINDINGS: RIGHT KNEE 3 views of the right knee were obtained. There are screws in the patella. There is ossification of fragments at the medial and lateral margins of the patella. There is no acute fracture or dislocation. There is mild narrowing of the medial compartment joint space. Soft tissues are unremarkable. IMPRESSION: Fragmentation and internal fixation of the patella consistent with old patellar fracture. Mild medial compartment joint space narrowing. Reviewed, Interpreted and Dictated by Last Lin MD Transcribed by Sherin Hillman Authenticated and [facility]
== END ==
PROVIDERS: PCP Internal Medicine Adolescent Medicine; Visit Provider Orthopaedic Surgery
DX: M25.561 Pain in right knee; S82.001A Unspecified fracture of right patella, initial encounter for closed fracture
CPT/HCPCS: 73562

== ENCOUNTER → 2023-07-12 09:28 | Outpatient (CLI) | payer MEDICARE, OTHER, SELFPAY ==
--- NOTE | 2023-07-12 09:33 | XR_ITS ---
FINAL REPORT CLINICAL HISTORY: right knee pain COMPARISON: 06/07/2023 FINDINGS: AP, lateral and oblique views of the right knee were obtained. There are postoperative changes from ORIF of the patella. The hardware is intact. Fracture line is still visible. There is no acute osseous abnormality or joint effusion. IMPRESSION: Postsurgical changes as above. Reviewed, Interpreted and Dictated by Arminda Morgan MD Transcribed by Naima Ko Authenticated and [facility]
== END ==
PROVIDERS: PCP Internal Medicine Adolescent Medicine; Visit Provider Orthopaedic Surgery
DX: M25.561 Pain in right knee (principal)
CPT/HCPCS: 73562

== ENCOUNTER 2023-07-26 07:24 | Day surgery (SDC) | payer MEDICARE, OTHER, SELFPAY ==
[2023-07-22 13:20] VITALS: BMI 33.2
[2023-07-26] VITALS (7 sets, daily range): BP systolic 130–154; BP diastolic 63–74; PULSE 52–69; RESP 16–19; TEMP 36.1–36.5; O2SAT 97–100
== END 2023-07-26 09:00 | disposition home or self-care (01) ==
PROVIDERS: PCP Internal Medicine Adolescent Medicine; Visit Provider Ophthalmology
PROC: (CPT 66984; principal; 2023-07-26 09:00)
DX: H25.811 Combined forms of age-related cataract, right eye (principal)
CPT/HCPCS: 66984; V2632

== ENCOUNTER 2023-08-09 07:32 | Day surgery (SDC) | payer MEDICARE, OTHER, SELFPAY ==
[2023-08-05 13:17] VITALS: BMI 33.3
[2023-08-09] VITALS (8 sets, daily range): BP systolic 137–191; BP diastolic 63–79; PULSE 55–62; RESP 16–18; TEMP 36.4–36.6; O2SAT 94–100
[2023-08-09 08:12] LABS: POC Glucose,Bedside 117 (70-110)
== END 2023-08-09 09:30 | disposition home or self-care (01) ==
PROVIDERS: PCP Internal Medicine Adolescent Medicine; Visit Provider Ophthalmology
PROC: (CPT 66984; principal; 2023-08-09 09:00)
DX: E11.36 Type 2 diabetes mellitus with diabetic cataract (principal); H25.9 Unspecified age-related cataract
CPT/HCPCS: 66984; 82962; V2632

== ENCOUNTER → 2023-09-28 12:15 | Outpatient (CLI) | payer MEDICARE, OTHER, SELFPAY ==
--- NOTE | 2023-09-28 12:19 | XR_ITS ---
FINAL REPORT CLINICAL HISTORY: pain and muscle spasms FINDINGS: CERVICAL SPINE Three views demonstrate no acute fracture. There is mild loss of the cervical lordosis. There is loss of height at C5-6 with moderate anterior osteophyte formation at this level. There is no malalignment. IMPRESSION: No acute process. THORACIC SPINE Two views demonstrate no acute fracture. The disc spaces are well preserved. There is no malalignment. IMPRESSION: No acute process. LUMBAR SPINE Three views demonstrate no acute fracture. There is mild to moderate disc space narrowing at L1-2 and L2-3. There is moderate facet sclerosis in the lower lumbar spine. There is no malalignment. IMPRESSION: Degenerative changes as above. Reviewed, Interpreted and Dictated by Last Lin MD Transcribed by Naima Ko Authenticated and [facility]
== END ==
PROVIDERS: PCP Internal Medicine Adolescent Medicine; Visit Provider Internal Medicine Adolescent Medicine
DX: M54.2 Cervicalgia (principal); M54.50 Low back pain, unspecified
CPT/HCPCS: 72084

== ENCOUNTER 2023-12-13 10:24 | Outpatient (CLI) | payer MEDICARE, OTHER, SELFPAY ==
--- NOTE | 2023-12-13 10:28 | XR_ITS ---
FINAL REPORT CLINICAL HISTORY: Rt knee pain COMPARISON: 06/11/2023 FINDINGS: AP, lateral and oblique views of the right knee were obtained. There are postoperative changes consistent with ORIF of the patella. There is no acute osseous abnormality of the right knee. Mild degenerative changes present. The soft tissues are normal. There is no joint effusion. IMPRESSION: Postop ORIF patella, stable in appearance. Mild degenerative change. Reviewed, Interpreted and Dictated by Arminda Morgan MD Transcribed by Shanti Meyer Authenticated and [facility]
== END 2023-12-13 23:59 ==
PROVIDERS: PCP Internal Medicine Adolescent Medicine; Visit Provider Orthopaedic Surgery
DX: M25.571 Pain in right ankle and joints of right foot (principal); M25.561 Pain in right knee
CPT/HCPCS: 73562

== ENCOUNTER 2023-12-27 13:49 | Outpatient (POV) | payer MEDICARE, OTHER, SELFPAY | END 2023-12-27 23:59 | disposition home or self-care (01) | LOC: SC 13:50 | PROVIDERS: PCP Internal Medicine Adolescent Medicine; Visit Provider Dermatology | DX: Z00.00 Encounter for general adult medical examination without abnormal findings (principal) ==

== ENCOUNTER 2024-01-03 13:15 | Outpatient (CLI) | payer MEDICARE, OTHER, SELFPAY ==
--- NOTE | 2024-01-03 13:32 | XR_ITS ---
FINAL REPORT CLINICAL HISTORY: SOA states she was doing housework over the weekend and became more SOA than usual COMPARISON: None FINDINGS: Two views of the chest were obtained. The heart size and pulmonary vascularity are within normal limits. The mediastinum is normal. Mild left base atelectasis is present. There is no pneumothorax. The bony thorax is intact with a spinal stimulator noted over the lower thoracic region. IMPRESSION: Mild left base atelectasis. Reviewed, Interpreted and Dictated by Andrés Coronel III, MD Transcribed by Shanti Meyer Authenticated and [facility]
[2024-01-03 13:36] LABS: Basophils # 0.1 K/mm3 (0-0.2); Basophils % 0.4 % (0.1-2.0); Eosinophils # 0.1 K/mm3 (0.0-0.4); Hematocrit 34.8 % (37.0-47.0); Lymphocytes # 3.1 K/mm3 (0.7-4.5); Lymphocytes % 26.9 % (10-50); Mean Corpuscular HGB Conc 31.5 g/dL (31.8-35.4); Mean Corpuscular Hemoglobin 23.4 pg (27.0-31.2); Mean Corpuscular Volume 74.1 fl (81-99); Mean Platelet Volume 8.8 fl (7.4-10.4); Monocytes # 0.6 K/mm3 (0.1-1.0); Monocytes % 5.3 % (1.7-9.3); Neutrophils # 7.7 K/mm3 (1.8-7.8); Neutrophils % 66.4 % (37.0-80.0); Platelet Count 356 K/mm3 (142-424); Red Blood Count 4.69 M/mm3 (4.20-5.40); Red Cell Distribution Width 18.9 % (11.5-17.5); White Blood Count 11.5 K/mm3 (4.8-10.8)
[2024-01-03 14:40] LABS: Alanine Aminotransferase 21 U/L (12-78); Albumin/Globulin Ratio 1.3 (1.1-1.8); Alkaline Phosphatase 84 U/L (38-126); Anion Gap 14.8 mEq/L (5-15); Aspartate Amino Transferase 26 U/L (14-36); Bilirubin,Total 0.6 mg/dl (0.2-1.3); Blood Urea Nitrogen 13 mg/dl (7-17); Calcium 8.5 mg/dl (8.4-10.2); Carbon Dioxide 24 mmol/L (22.0-30.0); Chloride 102 mmol/L (98-107); Estimated Glomerular Filt Rate 40 ml/min (>60); GFR (African American) 48 ML/MIN (>60); Glucose 117 mg/dl (74-100); Sodium 138 mmol/L (136-145)
[2024-01-03 14:50] LABS: NT Pro Brain Natriuretic Pep. 382 pg/mL (0-450)
[2024-01-03 15:11] LABS: Thyroid Stimulating Hormone 0.47 uIU/mL (0.465-4.68)
[2024-01-03 15:18] LABS: Potassium 2.8 mmoL/L (3.5-5.1)
[2024-01-03 15:47] LABS: Vitamin B12 842 pg/mL (239-931)
[2024-01-03 16:13] LABS: Folate > 20.00 ng/mL
[2024-01-03 16:19] LABS: Ferritin 6.39 ng/ml (11.1-264)
[2024-01-03 16:21] LABS: Iron 39 ug/dL (37-170); Total Iron Binding Capacity 413 ug/dL (265-497)
== END 2024-01-03 23:59 ==
LOC: RAD 13:16
PROVIDERS: PCP Internal Medicine Adolescent Medicine; Visit Provider Nurse Practitioner Family
DX: R06.02 Shortness of breath (principal); D50.9 Iron deficiency anemia, unspecified; Z79.899 Other long term (current) drug therapy
CPT/HCPCS: 36415; 71046; 80053; 82607; 82728; 82746; 83540; 83550; 83880; 84443; 85025

== ENCOUNTER 2024-01-12 07:35 | Outpatient (CLI) | payer MEDICARE, OTHER, SELFPAY ==
--- NOTE | 2024-01-12 | CA_ITS ---
APPROVED REPORT EXAM: Comprehensive 2D, Doppler, and color-flow Echocardiogram Dependency Counselor: Yazmin Talley RVT Ht: 5 ft 8 in Wt: 220lbs BSA: 2.13 BP: 123/83 mmHg Indications: SOA,EX SMOKER,MALI,GERD TDS-LIMITED WINDOWS R/T OVERLAYING LUNG AND BODY HABITUS 2D Dimensions LA Volume 69.60 mL LA Volume Index 32.68 mL/m2 (M/F) 16-34 M-Mode Dimensions RVDd 2.94 cm (0.9-2.6) LA Diam 4.68 cm (1.9-4.0) LVDd 4.53 cm (3.5-5.7) LVDs 2.80 cm (3.5-5.7) IVSd 1.13 cm (0.6-1.1) PWd 0.86 cm (0.6-1.1) EF (Teich) 68.50% FS 38.20% EDV (Teich) 93.90 mL TAPSE 2.54 (<1.7) ESV (Teich) 29.60 mL LV Diastology E Decel Time 150 (160-240 msec) E/A Ratio 0.7 Aortic Valve CARMEN Index 0.89 cm2/m2 AoV Peak Cory. 138.0 (50-130 cm/s) AO Peak GR. 7.70 mmHg AO Mean GR. 4.00 (<5 mmHg) AO VTI 30.8 (18-25 cm) CARMEN (VTI) 1.94 (2.5-4.5 cm2) Mitral Valve MV E Max Cory. 68.0 (40-130 cm/s) MV A Velocity 91.0 (40-130 cm/s) E/A Ratio 0.74 MV PHT 44.0 ms Pulmonary Valve PV Peak Velocity 69.0 (50-150 cm/s) Tricuspid Valve TR P. Velocity 166.00 cm/s RAP Estimate 10.00 mmHg RVSP 21.10 mmHg Left Ventricle The left ventricle is normal size. The left ventricular systolic function is normal. The left ventricular ejection fraction is within the normal range. There is increased LV wall thickness. Diastolic function is indeterminate. Regional wall motion cannot be estimated due to technically difficult study. LVEF is 55%. Right Ventricle The right ventricle is mildly dilated. Right ventricle is mildly hypokinetic. Atria The left atrium is mildly dilated. The right atrium size is normal. There is no Doppler evidence of interatrial shunt. Aortic Valve The aortic valve is mildly thickened. There is no aortic valvular stenosis. No aortic regurgitation is present. Mitral Valve The mitral valve is mildly thickened. Trace mitral regurgitation. No evidence of mitral valve stenosis. Tricuspid Valve The tricuspid valve leaflets are thin and pliable. Trace tricuspid regurgitation. There is insufficient TR jet to estimate RVSP. Pulmonic Valve The pulmonary valve is normal in structure. Trace pulmonic regurgitation. Great Vessels The aortic root is normal in size. The ascending aorta is normal in size. IVC is normal in size and collapses >50% with inspiration. Pericardium Trivial pericardial effusion noted anteriorly. No echo indications of tamponade. Other Information Study Quality: Technically Difficult Conclusion Technically difficult study due to poor acoustic windows. Normal LV systolic function. Mild RV dilation with mild reduction in RV function. No significant valvular stenosis or regurgitation. Trivial pericardial effusion noted anteriorly. No echo indications of tamponade. Electronically signed by : Renee Shoemaker MD 01/15/2024 23:32:11
[2024-01-12 08:20] VITALS: PULSE 64; PULSE 66
[2024-01-12] MEDS: ALBUTEROL 0.083% 2.5 MG/3 ML NEB IH (08:20)
== END 2024-01-12 23:59 ==
LOC: RT 07:36
PROVIDERS: PCP Internal Medicine Adolescent Medicine; Visit Provider Nurse Practitioner Family
DX: R06.02 Shortness of breath (principal)
CPT/HCPCS: 93306; 94060; 94640

== ENCOUNTER 2024-04-03 12:38 | Outpatient (CLI) | payer MEDICARE, OTHER, SELFPAY ==
--- NOTE | 2024-04-03 12:39 | XR_ITS ---
FINAL REPORT CLINICAL HISTORY: Foot Pain FINDINGS: Three views show no evidence of acute displaced fracture or dislocation of the visualized bony architecture. The joint spaces appear normal. IMPRESSION: Unremarkable exam. Reviewed, Interpreted and Dictated by Violet Marte MD Transcribed by Naima Ko Authenticated and [facility]
--- NOTE | 2024-04-03 12:39 | XR_ITS ---
FINAL REPORT CLINICAL HISTORY: Foot Pain FINDINGS: Left foot Three views were obtained. There is no acute fracture or dislocation. There are mild degenerative changes of the 1st metatarsophalangeal joint. The bones are osteopenic. No soft tissue abnormality is identified. IMPRESSION: Mild degenerative changes as above. Reviewed, Interpreted and Dictated by Violet Marte MD Transcribed by Naima Ko Authenticated and . [facility]
--- NOTE | 2024-04-03 12:39 | CT_ITS ---
FINAL REPORT TECHNIQUE: Axial CT without IV contrast administration. Reconstructed images were obtained and reviewed. This study was performed with techniques to keep radiation doses as low as reasonably achievable (ALARA). Individualized dose reduction techniques using automated exposure control or adjustment of mA and/or kV according to the patient's size were employed. CLINICAL HISTORY: dyspnea FINDINGS: There is a 6 mm nodule in the right upper lobe well seen on image 22. The lungs are otherwise unremarkable. No pleural or pericardial effusion is seen. No adenopathy or mass lesion is present. Limited images of the upper abdomen reveal a left hepatic cyst. IMPRESSION: No findings to account for shortness of breath. Incidental right upper lobe ground-glass nodule. Recommend six-month follow-up. Reviewed, Interpreted and Dictated by Violet Maret MD Transcribed by Naima Ko Authenticated and [facility]
== END 2024-04-03 23:59 | disposition home or self-care (01) ==
LOC: RAD 12:39
PROVIDERS: PCP Internal Medicine Adolescent Medicine; Visit Provider Physician Assistant
DX: M79.671 Pain in right foot; M79.672 Pain in left foot; R42 Dizziness and giddiness; R06.09 Other forms of dyspnea; R94.31 Abnormal electrocardiogram [ECG] [EKG]; R73.03 Prediabetes
CPT/HCPCS: 71250; 73630

== ENCOUNTER 2024-04-04 06:08 | Outpatient (CLI) | payer MEDICARE, OTHER, SELFPAY ==
--- NOTE | 2024-04-04 06:11 | NM_ITS ---
APPROVED REPORT Exam: Nuclear Stress Test Indication: HTN, HYPERLIPIDEMIA, FORMER TOB USE, FM HX, SOB, ABN EKG Patient Location: Outpatient Stress Tech: Regina Fraser [place] Tech:Kami Mendieta, ARRT, RT (R)(N) Ht: 5 ft 8 in Wt: 220 lbs Bra Size: 48C HR: 71 bpm BP: 143/79 mmHg BSA: 2.13 m2 TID: 1.26 BMI: 33.4 History: HTN, HYPERLIPIDEMIA, FORMER TOB USE, FM HX, SOB, ABN EKG Procedure: Patient received 0.4 mg of intravenous Lexiscan, resting heart rate 71 bpm, resting blood pressure 143/79 mmHg, with Lexiscan maximum heart rate achieved was 89 bpm which is % of the maximum predicted heart rate and blood pressure was 167/65 mmHg. With Lexiscan, patient denied any complaint of chest pain. Cardiac Stress and Resting SPECT Images: Cardiac Stress and Resting SPECT images were obtained using technetium 99m Myoview 32.3 mCi stress and 10.50 mCi at rest. Resting and stress imaging in supine and prone positions demonstrate no evidence of fixed or reversible perfusion defects. There is increased transient ischemic dilatation ratio (TID 1.26), suggestive of possible multivessel disease or balanced ischemia. Gated imaging demonstrates normal global and regional LV systolic function. LVEF is calculated at 73%. Conclusion: No evidence of fixed or reversible perfusion defects. Increased transient ischemic dilatation ratio (TID 1.26), suggestive of possible multivessel disease or balanced ischemia. Gated imaging demonstrates normal global and regional LV systolic function. LVEF is calculated at 73%. Electronically signed by : Renee Shoemaker MD 04/07/2024 23:32:59
[2024-04-04] MEDS: REGADENOSON 0.4MG/5ML SYRINGE 0.4 MG IV (08:16)
[2024-04-04] MEDS: ISOTOPE MYOVIEW (PER STUDY) 1 DOSE IV (08:17)
[2024-04-04] MEDS: SODIUM CHLORIDE 0.9% 10ML SYR (RAD ONLY) 10 ML IV ×2 (08:17)
--- NOTE | 2024-04-04 10:14 | CA_ITS ---
APPROVED REPORT Exam: Pharmacologic Technologist: Regina Lamb, Ht: 5 ft 8 in Wt: 224 lbs BSA: 2.14 m2 HR: 64 bpm BP: 143/79 mmHg Rhythm: NSR Medical History Medications: Amlodipine,,,,, Levothyroxine,,,,, Diazepam,,,,, Losartan,,,,, Albuterol,,,,, Zocor,,,,, Vitamin B,,,,, MeLATONIN,,,,, LovaZA,,,,, JaRDiance,,,,, Budesonide,,,,, Multivitamin,,,,, Stress Test Details Test: LEXISCAN Reason for pharmacologic stress test: physical limitation. HR Resting HR: 71 bpm Max Heart Rate (APMHR): 140 bpm Max HR Achieved: 89 bpm Target HR (85% APMHR): 119 bpm % of APMHR: 64 Recovery HR: 80 bpm BP Resting BP: 143.0/79.0 mmHg Max BP: 167.0/65.0 mmHg Recovery BP: 154.0/68.0 mmHg ECG Resting ECG: NSR, low voltage QRS Stress ECG: No significant ST changes Arrhythmia: None Clinical Exercise duration: 04:01 min Highest Stage Achieved: Exercise capacity: 1.0 METs Stress ECG Conclusion Symptoms: SOA, head discomfort. No CP Arrhythmias/Ectopy: None ST-T Changes: No significant ST changes. Conclusion: Unremarkable Lexiscan stress. Myoview images are reported separately. Test Summary REST . . . . . . . Resting REST 03:51 . . 71 . 143/ 79 . . Stage 1 01:00 . . 89 . . . . Stage 2 01:00 . . 85 . . . . Stage 3 01:00 . . 81 . 167/ 65 . . Stage 4 01:00 . . 83 . 154/ 68 . . Stage 4 01:01 . . 83 . 154/ 68 . Stop exercise at 04:01 RECOVERY 01:00 . . 80 . . . . RECOVERY 02:00 . . 83 . 147/ 66 . . RECOVERY 03:00 . . 75 . 154/ 68 . . RECOVERY 03:18 . . 77 . 154/ 68 . . Electronically signed by : Renee Shoemaker MD 04/07/2024 23:31:30
== END 2024-04-04 23:59 | disposition home or self-care (01) ==
LOC: RAD 06:08
PROVIDERS: PCP Internal Medicine Adolescent Medicine; Visit Provider Physician Assistant
DX: R06.00 Dyspnea, unspecified (principal); R42 Dizziness and giddiness; R94.31 Abnormal electrocardiogram [ECG] [EKG]; R73.03 Prediabetes
CPT/HCPCS: 78452; 93017; 93018; A9502; J2785

== ENCOUNTER 2024-04-18 13:28 | Outpatient (CLI) | payer MEDICARE, OTHER, SELFPAY ==
[2024-04-18 14:23] LABS: Basophils # 0.1 K/mm3 (0-0.2); Basophils % 0.5 % (0.1-2.0); Eosinophils % 0.3 % (0.1-12.0); Hematocrit 42.2 % (37.0-47.0); Hemoglobin 14.8 g/dL (12.2-16.2); Lymphocytes # 2.7 K/mm3 (0.7-4.5); Lymphocytes % 21.7 % (10-50); Mean Corpuscular Volume 91.3 fl (81-99); Mean Platelet Volume 8.6 fl (7.4-10.4); Monocytes # 0.7 K/mm3 (0.1-1.0); Neutrophils # 8.9 K/mm3 (1.8-7.8); Neutrophils % 71.5 % (37.0-80.0); Platelet Count 271 K/mm3 (142-424); Red Blood Count 4.62 M/mm3 (4.20-5.40); Red Cell Distribution Width 17.2 % (11.5-17.5); White Blood Count 12.4 K/mm3 (4.8-10.8)
[2024-04-18 15:25] LABS: Chloride 104 mmol/L (98-107); Potassium 3.9 mmoL/L (3.5-5.1); Sodium 138 mmol/L (136-145)
[2024-04-18 15:27] LABS: Alanine Aminotransferase 22 U/L (12-78); Alkaline Phosphatase 76 U/L (38-126); Anion Gap 11.9 mEq/L (5-15); Aspartate Amino Transferase 26 U/L (14-36); Bilirubin,Indirect 0.6 mg/dL (0.0-0.9); Bilirubin,Total 0.6 mg/dl (0.2-1.3); Bilirubin,Unconjugated 0.6 mg/dL (0.0-1.1); Blood Urea Nitrogen 17 mg/dl (7-17); Carbon Dioxide 26 mmol/L (22.0-30.0); Creatinine Clearance Estimated 66 mL/min (50-200); Estimated Glomerular Filt Rate 48 ml/min (>60); GFR (African American) 58 ML/MIN (>60)
[2024-04-18 15:28] LABS: Albumin Level 4.2 g/dl (3.5-5.0); Calcium 8.7 mg/dl (8.4-10.2); Chol/HDL Ratio 2.1 (1-3.5); Cholesterol 182 mg/dl (140-200); Glucose 95 mg/dl (74-100); HDL Cholesterol 85 mg/dl (40-60); Total Protein,Serum 7.3 g/dl (6.3-8.2); Triglycerides 124 mg/dl (30-150); VLDL Cholesterol 25 mg/dL (0-40)
[2024-04-18 15:39] LABS: Direct LDL Cholesterol 64.43 mg/dL (100-129)
[2024-04-18 15:44] LABS: Free T4 (Free Thyroxine) 1.75 ng/dl (0.78-2.19)
== END 2024-04-18 23:59 | disposition home or self-care (01) ==
LOC: LAB 13:29
PROVIDERS: PCP Internal Medicine Adolescent Medicine; Visit Provider Physician Assistant
DX: E78.5 Hyperlipidemia, unspecified (principal)
CPT/HCPCS: 36415; 80048; 80061; 80076; 83735; 84439; 84443; 85025

== ENCOUNTER 2024-05-10 07:47 | Day surgery (SDC) | payer MEDICARE, OTHER, SELFPAY ==
[2024-05-10] VITALS (16 sets, daily range): BP systolic 129–173; BP diastolic 59–83; PULSE 52–69; RESP 16–19; O2SAT 91–99; BMI 34.2
--- NOTE | 2024-05-10 07:05 | IR_ITS ---
APPROVED REPORT Patient Location: Outpatient Incinerator Operator: SHERRI Rivera RT (R) PROCEDURES Left heart catheterization Left ventriculogram Selective coronary angiogram INDICATION Abnormal Myoview, Angina pectoris Informed consent was obtained prior to the procedure. COMPLICATIONS NONE Estimated Blood Loss: LESS THAN 10 ML TECHNIQUE One percent lidocaine used to anesthetize the right anterior aspect of the wrist. The right radial artery was accessed via the Seldinger technique. A 6 [place] sheath was placed in the right radial artery. 2.5 mg of Verapamil, 800 mcg of nitroglycerin, 1mg Lidocaine and 5000 U Heparin were given through the arterial sheath. The papa catheter was also used to perform left heart catheterization, left ventriculogram and selective coronary angiogram. At the end of the procedure the sheath was removed good hemostasis was achieved using Traclet band, patient was transferred to the postop holding area in stable condition. ANGIOGRAPHIC RESULTS The left main artery Normal The left anterior descending artery Has a proximal concentric 30% stenosis between the first septal monitor car operator and the first diagonal artery. The LAD is relatively small distal to the first diagonal artery and is without stenosis. The first diagonal artery has proximal mild to moderate vascular ectasia with no focal stenosis The circumflex artery Nondominant yet still large with mild 10% luminal irregularities The right coronary artery Large dominant with 10% luminal regularities The CEVALLOS ventriculogram reveals Normal 60% The left ventricular end-diastolic pressure 10 to 15 mmHg IMPRESSION Mild nonflow limiting coronary artery disease Normal ejection fraction Normal LVEDP PLAN 1. Risk factor modification with aggressive medical management Electronically signed by : Shad Rand MD 05/10/2024 10:20:00
[2024-05-10 08:16] LABS: Basophils # 0.1 K/mm3 (0-0.2); Eosinophils # 0.1 K/mm3 (0.0-0.4); Hematocrit 48.3 % (37.0-47.0); Hemoglobin 15.8 g/dL (12.2-16.2); Lymphocytes # 2.3 K/mm3 (0.7-4.5); Lymphocytes % 20.3 % (10-50); Mean Corpuscular HGB Conc 32.7 g/dL (31.8-35.4); Mean Corpuscular Hemoglobin 30.3 pg (27.0-31.2); Mean Corpuscular Volume 92.8 fl (81-99); Mean Platelet Volume 8.5 fl (7.4-10.4); Monocytes # 0.5 K/mm3 (0.1-1.0); Monocytes % 4.5 % (1.7-9.3); Neutrophils # 8.5 K/mm3 (1.8-7.8); Neutrophils % 73.3 % (37.0-80.0); Platelet Count 294 K/mm3 (142-424); Red Cell Distribution Width 15.1 % (11.5-17.5); White Blood Count 11.6 K/mm3 (4.8-10.8)
[2024-05-10 08:27] LABS: Blood Urea Nitrogen 19 mg/dl (7-17); Calcium 9.2 mg/dl (8.4-10.2); Carbon Dioxide 24 mmol/L (22.0-30.0); Chloride 105 mmol/L (98-107); Creatinine Clearance Estimated 56 mL/min (50-200); Estimated Glomerular Filt Rate 39 ml/min (>60); GFR (African American) 48 ML/MIN (>60); Glucose 103 mg/dl (74-100); Sodium 140 mmol/L (136-145)
[2024-05-10] MEDS: HEPARIN 1,000 UNITS/500ML NS (CATH LAB) 3000 UNIT IV (10:01)
[2024-05-10] MEDS: LIDOCAINE 1% 10ML MDV 20 ML IJ (10:01)
[2024-05-10] MEDS: VERAPAMIL 2.5MG/ML 2ML VIAL 2.5 MG IV (10:01)
[2024-05-10] MEDS: 0.9 % SODIUM CHLORIDE 500 ML 25 ML IV (10:01)
[2024-05-10] MEDS: HEPARIN 1,000 UNITS/ML 10ML VIAL (CATH LAB) 10000 UNIT IV (10:02)
[2024-05-10] MEDS: diphenhydrAMINE 50MG/ML VIAL 50 MG IV (10:02)
[2024-05-10] MEDS: FENTANYL 100MCG/2ML VIAL 50 MCG IV (10:12)
[2024-05-10] MEDS: MIDAZOLAM HCL 1MG/1ML 5ML VIAL 1 MG IV (10:12)
[2024-05-10] MEDS: IOPAMIDOL-370 (76%);100ML BOTTLE 80 ML IV (11:46)
== END 2024-05-10 13:40 | disposition home or self-care (01) ==
PROVIDERS: PCP Internal Medicine Adolescent Medicine; Visit Provider Internal Medicine
DX: R93.1 Abnormal findings on diagnostic imaging of heart and coronary circulation (principal); R06.09 Other forms of dyspnea; R94.31 Abnormal electrocardiogram [ECG] [EKG]; I25.10 Atherosclerotic heart disease of native coronary artery without angina pectoris; Z79.899 Other long term (current) drug therapy
CPT/HCPCS: 80048; 85025; 93458; 99152; C1725; C1769; J1200; J1644; J2250; J3010; Q9967

== ENCOUNTER 2024-05-17 10:32 | Outpatient (POV) | payer MEDICARE, OTHER, SELFPAY ==
[2024-05-17 11:34] VITALS: BP 148/68; PULSE 65; RESP 18; O2SAT 94; BMI 34.0
--- NOTE | 2024-05-17 11:59 | EXP.PAIN.SOA ---
[facility] Disclaimer: The information contained in this section may have been updated after the patient was seen, as this information can be updated by other users. Medical History (Updated 05/17/24 @ 12:01 by Arlette Gee APRN) HLD (hyperlipidemia) Abnormal findings on diagnostic imaging of heart and coronary circulation Bilateral primary osteoarthritis of knee Colitis History of trigger finger Sleep apnea Irritable bowel syndrome (IBS) History of gastroesophageal reflux (GERD) History of cataract Skin cancer Sjogrens syndrome Obstructive sleep apnea Neuropathy Fibromyalgia Surgical History History of appendectomy Hx of foot surgery Hx of submucous nasal surgery Hx of spinal surgery H/O: hysterectomy History of thyroidectomy, total Hx of cholecystectomy Family History Other Family history of atrial fibrillation Family history of cancer Family history of diabetes mellitus type II Lung cancer Social History (Updated 05/10/24 @ 07:56 by Magdalena Rawls RN) Smoking Status: Former smoker alcohol intake: never substance use type: denies use current occupational status: retired Travel in the last 8 weeks: None household members: none housing: house lives independently: No marital status: education level: high school service: No current occupational exposures/hazards: No caffeine: No do you feel safe at home: Yes victim of physical abuse: No victim of emotional abuse: No victim of sexual abuse: No would you like helpful sources: No PM Subjective & Objective Subjective Subjective:: Patient is a pleasant 79-year-old female who presents today for follow-up and at that stimulator reprogramming. Today she rates her pain a 9 out of 10. She denies any new trauma or injury. She does state that she has been having more issues with her habit stimulator and that the programming she thought may have needed additional adjustment but she does question whether or not if it needed replacement due to that change. Patient does have chronic pain throughout her low back and radiating into her lower extremities. Patient does state that she has gotten significant improvement with her stimulator up until the last few months. She does have a history of chronic kidney disease and does not take any NSAIDs. Patient has been tried on muscle relaxer and other conservative treatment in the past along with topicals with some improvement. Her Silvino has been reviewed and is appropriate. Review of Systems: General: No recent weight changes, no fever, no sleep disturbances Respiratory: No cough, no shortness of air, no recurring pulmonary infections Cardiovascular/peripheral vascular: No chest pain, no palpitations, no edema, no shortness of breath Gastrointestinal: No new onset incontinence, normal bowel movements reported Genitourinary: No new onset incontinence Musculoskeletal: Low back pain, leg pain Psychiatric: [Normal mood/affect] Neurological: [Denies weakness in extremities], [denies balance issues] Pain at rest (0-10 scale): 9 Objective Objective:: Physical Exam: General: Alert and oriented x3, no acute distress, pleasant and cooperative Lungs: Respirations even and unlabored, symmetrical chest expansion Eyes: PERRL Musculoskeletal: Flexion and extension of lumbar [spine] somewhat guarded secondary to pain, [antalgic gait noted] Neurological: Speech clear, no gross sensory deficit Has patient had previous pain injection?: No Conservative treatment options previously tried: Home exercise plan Length of treatment: Longer than 12 weeks and Prescription medications Length of treatment: Longer than 12 weeks Meds Home Medications and Allergies Home Medications ?Medication ?Instructions ?Recorded ?Confirmed ?Type esomeprazole magnesium 40 mg 40 mg PO DAILY Heartburn 05/30/18 05/17/24 History capsule,delayed release levothyroxine 112 mcg tablet 112 mcg PO DAILY Hypothyroidism 05/30/18 05/17/24 History losartan 100 mg tablet 100 mg PO DAILY High blood pressure 05/30/18 05/17/24 History vitamin B complex 1 each PO DAILY Supplement 05/30/18 05/17/24 History melatonin 5 mg tablet 5 mg PO HS sleep 12/08/18 05/17/24 History furosemide 20 mg tablet 20 mg PO DAILY Edema 08/13/19 05/17/24 History simvastatin 40 mg tablet (Zocor) 40 mg PO QHS Cholesterol 09/06/19 05/17/24 History amlodipine 10 mg tablet 10 mg PO DAILY High Blood Pressure 04/20/23 05/17/24 History budesonide 3 mg 9 mg PO HS colitis 04/20/23 05/17/24 History capsule,delayed,extended release empagliflozin 25 mg tablet 25 mg PO DAILY Diabetes 04/20/23 05/17/24 History (Jardiance) omega-3 acid ethyl esters 1 gram 1 g PO BID fibromyalgia 04/20/23 05/17/24 History capsule (Lovaza) albuterol sulfate 90 mcg/actuation 2 puff inhalation Q6HP PRN 04/21/23 05/17/24 History aerosol inhaler Shortness Of Breath multivitamin (Daily Multi-Vitamin 1 tab PO DAILY 03/28/24 05/17/24 History tablet) nebivolol 20 mg tablet (Bystolic) 20 mg PO DAILY 03/28/24 05/17/24 History diclofenac sodium 1 % topical gel 4 g topical QID PRN pain 30 days 04/16/24 05/17/24 Rx #100 grams budesonide-formoterol HFA 160 2 puff inhalation BID 04/18/24 05/17/24 History mcg-4.5 mcg/actuation aerosol inhaler potassium chloride 10 mEq 10 meq PO DAILY 04/18/24 05/17/24 History capsule,extended release New Prescriptions to Start Prescriptions: Allergies Allergy/AdvReac Type Severity Reaction Status Date / Time codeine [CODEINE] Allergy Unknown BLOOD Verified 04/18/24 12:52 PRESSURE DROPS erythromycin base Allergy Unknown GI UPSET Verified 04/18/24 12:52 [ERYTHROMYCIN BASE] gabapentin [From NEURONTIN] Allergy Unknown LEG Verified 04/18/24 12:52 SWELLING, RASH methylprednisolone Allergy Unknown HEART RACES Verified 04/18/24 12:52 [METHYLPREDNISOLONE] prednisone [PREDNISONE] Allergy Unknown HEART Verified 04/18/24 12:52 RACES, FT SWELLING hydrochlorothiazide AdvReac Intermediate Verified 04/18/24 12:52 chlorthalidone AdvReac Unknown Verified 04/18/24 12:52 polymyxin B AdvReac Unknown Verified 04/18/24 12:52 Assessment and Plan *Assessment and plan (1) Degenerative disc disease, lumbar: Status: Acute Category: Medical Code(s): M51.36 - Other intervertebral disc degeneration, lumbar region (2) Lumbar radiculopathy: Status: Acute Category: Medical Code(s): M54.16 - Radiculopathy, lumbar region Plan Patient is experiencing more pain throughout her low back and legs with limited range of motion. Patient did meet with [employer] bilingual call center representative who did reprogram her device with a little better coverage however the battery is at its end-of-life and the bilingual call center representative is stating that it does need to replaced. Patient states that the device can stop functioning at the end of this month or even next month that it could be very random. Patient does have her paddle leads in a good location and does not need revision of the leads but will need a new generator battery. Patient is discussing with Her bilingual call center representative whether they want rechargeable versus nonrechargeable. I have gone over the risk and benefits of spinal cord stimulator generator replacement and she would like to proceed forward with this plan of care. Patient is not on any blood thinners. Patient has tried and failed conservative therapy including oral medication, heat and ice, topicals, prior chiropractor therapy and continued at home stretching exercise for longer than 12 weeks. Patient has had significant improved function when using her Hernandez stimulator and would like to continue getting improvement through this device. We will submit to insurance for her spinal cord stimulator generator replacement and contact the patient once we have official approval. Patient has been instructed to contact the clinic with any concerns before the next appointment. Dr. Rueda has reviewed this note and agrees with this plan of care. This note was dictated using voice recognition software and make contain errors or omissions. All injections are used with Lidocaine or Bupivacaine and Depo Medrol.
== END 2024-05-17 23:59 | disposition home or self-care (01) ==
LOC: SC.PAIN 10:33
PROVIDERS: PCP Internal Medicine Adolescent Medicine; Visit Provider Nurse Practitioner Family
DX: M51.16 Intervertebral disc disorders with radiculopathy, lumbar region (principal); Z87.891 Personal history of nicotine dependence; Z79.899 Other long term (current) drug therapy; Z96.82 Presence of neurostimulator
CPT/HCPCS: 99212; G0463

== ENCOUNTER 2024-06-22 09:40 | Outpatient (CLI) | payer MEDICARE, OTHER, SELFPAY ==
[2024-06-22 10:16] LABS: Basophils # 0.1 K/mm3 (0-0.2); Basophils % 0.7 % (0.1-2.0); Eosinophils # 0.1 K/mm3 (0.0-0.4); Eosinophils % 0.4 % (0.1-12.0); Hematocrit 44.8 % (37.0-47.0); Hemoglobin 14.7 g/dL (12.2-16.2); Lymphocytes # 2.6 K/mm3 (0.7-4.5); Lymphocytes % 21.6 % (10-50); Mean Corpuscular HGB Conc 32.8 g/dL (31.8-35.4); Mean Corpuscular Hemoglobin 30.9 pg (27.0-31.2); Mean Corpuscular Volume 94.3 fl (81-99); Mean Platelet Volume 8.3 fl (7.4-10.4); Monocytes # 0.7 K/mm3 (0.1-1.0); Neutrophils # 8.6 K/mm3 (1.8-7.8); Neutrophils % 71.3 % (37.0-80.0); Platelet Count 294 K/mm3 (142-424); Red Blood Count 4.75 M/mm3 (4.20-5.40); Red Cell Distribution Width 14.3 % (11.5-17.5); White Blood Count 12.1 K/mm3 (4.8-10.8)
[2024-06-22 10:27] LABS: Anion Gap 8.2 mEq/L (5-15); Blood Urea Nitrogen 20 mg/dl (7-17); Calcium 8.5 mg/dl (8.4-10.2); Carbon Dioxide 25 mmol/L (22.0-30.0); Chloride 107 mmol/L (98-107); Creatinine Clearance Estimated 56 mL/min (50-200); Estimated Glomerular Filt Rate 39 ml/min (>60); GFR (African American) 48 ML/MIN (>60); Glucose 101 mg/dl (74-100); Potassium 4.2 mmoL/L (3.5-5.1); Sodium 136 mmol/L (136-145)
== END 2024-06-22 23:59 | disposition home or self-care (01) ==
LOC: PREOP 09:41
PROVIDERS: PCP Internal Medicine Adolescent Medicine; Visit Provider Anesthesiology
DX: Z01.818 Encounter for other preprocedural examination (principal); M51.36 Other intervertebral disc degeneration, lumbar region
CPT/HCPCS: 80048; 85025

== ENCOUNTER 2024-06-29 06:10 | Day surgery (SDC) | payer MEDICARE, OTHER, SELFPAY ==
[2024-06-22 10:04] VITALS: BMI 34.2
[2024-06-29] MEDS: LACTATED RINGERS 1000ML 1,000 ML 25 ML IV (06:46)
[2024-06-29 06:47] VITALS: BP 155/65; PULSE 64; RESP 18; TEMP 36.2; O2SAT 98
--- NOTE | 2024-06-29 07:26 | P.PNANES_ITS ---
[facility] Disclaimer: The information contained in this section may have been updated after the patient was seen, as this information can be updated by other users. Medical History Urinary tract infection Diabetes mellitus, type 2 Hyperlipidemia Hypertension History of anemia Chronic obstructive pulmonary disease MALI on CPAP Coronary artery disease HLD (hyperlipidemia) Abnormal findings on diagnostic imaging of heart and coronary circulation Bilateral primary osteoarthritis of knee Colitis History of trigger finger Sleep apnea Irritable bowel syndrome (IBS) History of gastroesophageal reflux (GERD) History of cataract Skin cancer Sjogrens syndrome Obstructive sleep apnea Neuropathy Fibromyalgia Surgical History History of colonoscopy History of appendectomy Hx of foot surgery Hx of submucous nasal surgery Hx of spinal surgery H/O: hysterectomy History of thyroidectomy, total Hx of cholecystectomy Family History Other Family history of atrial fibrillation Family history of cancer Family history of diabetes mellitus type II Lung cancer Social History Smoking Status: Former smoker alcohol intake: current alcohol intake frequency: holidays/special occasions only substance use type: denies use current occupational status: retired Travel in the last 8 weeks: None household members: none housing: house lives independently: No marital status: education level: high school service: No current occupational exposures/hazards: No caffeine: No do you feel safe at home: Yes victim of physical abuse: No victim of emotional abuse: No victim of sexual abuse: No would you like helpful sources: No [facility] Anesthesia Checklist Patient Identification Patient Identification: Arm Band, Family and Verbal (Name & ) Structural Data Admitted From: Home Planned Operative Procedure/s: SC stimulator generator/battery changeout Consent for Planned Operative Procedure(s) Verified: Yes Verified Documents: Surgical Consent and History and Physical NPO Status Verified Time NPO: 18:30 Chart Verification Results Verified: CBC, BMP, ECG and Chest Xray Additional verifications Patient : No Anesthesia Reactions: No Hx Blood Transfusions: No Blood Transfusion Reaction: No Previous Colonoscopy: Yes Cardiovascular Assessment Heart Sounds: S1 & S2 Pulse Rhythm: Irregular Peripheral Edema: No Airway Assessment Mallampati Score:: Class II C-Spine Mobility Assessed: Yes (FROM demonstrated) TMJ Mobility Assessed: Yes Dentition: Poor Dentition (Carried. Nothing loose per pt.) Neurological Assessment Level of Consciousness: Awake, Alert, Appropriate and Follows Commands Hx Seizures: No Numbness or tingling in extremities: No Anesthesia Plan Anesthesia Risk discussed: Yes Anesthesia Plan: Verified ASA Class: III Anesthesia Type: MAC
[2024-06-29] MEDS: VANCOMYCIN/WATER FOR INJ (PEG) 1.75 GM/350 ML PIGGYBACK IV ×2 (07:45→08:06)
[2024-06-29] MEDS: LIDOCAINE 1% W/EPI 1:100,000 20ML VIAL 40 ML (08:12)
[2024-06-29 08:27] VITALS: BP 116/63; PULSE 65; RESP 18; TEMP 36; O2SAT 97
--- NOTE | 2024-06-29 08:34 | EXP.OP.NOTE ---
Date of procedure: 06/29/24 Pre-op Diagnosis:: End-of-life spinal cord stimulator generator Post-op Diagnosis:: Same Procedure performed:: Replacement spinal cord stimulator generator Surgeon:: Salvador Rueda MD ORTHOPEDIC CAST SPECIALIST:: Aileen Santana Anesthesia: MAC Estimated blood loss (mL): 5 Clinical Note:: This patient's pleasant 79-year-old white female who has an Hernandez spinal cord stimulator system and with paddle leads in place. Her system is working well. Her spinal stimulator generator is at end-of-life. We will replace this today. Operative findings:: None Operative note:: Informed consent was obtained risk and benefits of the procedure were explained to the patient. The patient was taken the operating room placed prone on the procedure table. She was prepped and draped in sterile fashion. C-arm fluoroscopy was used to document the paddle leads in place. These cover the entire T10 vertebral body. The skin and subcutaneous tissues overlying the stimulator generator were anesthetized using lidocaine. I made incision dissected out the stimulator generator. We disconnected the leads. We connected the leads to a new nonrechargeable stimulator battery. The battery was placed back in the pocket. Incision was then closed with 2-0 Vicryl followed by 4-0 nylon and brady. Patient tolerated the procedure well with no complications. Patient was programmed by the [employer] medical office representative with good stimulation in all areas of pain. Patient was discharged home in neurologic With good relief of pain symptoms. Plan and disposition: Will follow-up with this patient in 1 week for wound check and reprogramming. Will follow-up in 2 to 3 weeks for suture and staple removal. Condition: stable Disposition: PACU Complications:: None
[2024-06-29 08:37] VITALS: BP 123/63; PULSE 61; RESP 18; O2SAT 98
[2024-06-29 08:47] VITALS: BP 122/53; PULSE 61; RESP 18; O2SAT 97
[2024-06-29 08:57] VITALS: BP 124/65; PULSE 62; RESP 18; O2SAT 98
== END 2024-06-29 08:57 | disposition home or self-care (01) ==
PROVIDERS: PCP Internal Medicine Adolescent Medicine; Visit Provider Anesthesiology
PROC: (CPT 63688; principal; 2024-06-29 07:30)
DX: T85.113A Breakdown (mechanical) of implanted electronic neurostimulator, generator, initial encounter (principal); M51.36 Other intervertebral disc degeneration, lumbar region; M54.16 Radiculopathy, lumbar region; Z79.899 Other long term (current) drug therapy; Y83.1 Surgical operation with implant of artificial internal device as the cause of abnormal reaction of the patient, or of later complication, without mention of misadventure at the time of the procedure
CPT/HCPCS: 63688; 80048; 85025; 96374; C1767; J2250; J3010; J7120; S0028

== ENCOUNTER 2024-07-05 09:33 | Outpatient (POV) | payer MEDICARE, OTHER, SELFPAY ==
[2024-07-05 09:45] VITALS: BP 99/54; PULSE 59; RESP 16; O2SAT 96; BMI 34.0
--- NOTE | 2024-07-05 10:23 | A.OFFVIS_ITS ---
[facility] Disclaimer: The information contained in this section may have been updated after the patient was seen, as this information can be updated by other users. Medical History Urinary tract infection Diabetes mellitus, type 2 Hyperlipidemia Hypertension History of anemia Chronic obstructive pulmonary disease MALI on CPAP Coronary artery disease HLD (hyperlipidemia) Abnormal findings on diagnostic imaging of heart and coronary circulation Bilateral primary osteoarthritis of knee Colitis History of trigger finger Sleep apnea Irritable bowel syndrome (IBS) History of gastroesophageal reflux (GERD) History of cataract Skin cancer Sjogrens syndrome Obstructive sleep apnea Neuropathy Fibromyalgia Surgical History History of colonoscopy History of appendectomy Hx of foot surgery Hx of submucous nasal surgery Hx of spinal surgery H/O: hysterectomy History of thyroidectomy, total Hx of cholecystectomy Family History Other Family history of atrial fibrillation Family history of cancer Family history of diabetes mellitus type II Lung cancer Social History Smoking Status: Former smoker alcohol intake: current alcohol intake frequency: holidays/special occasions only substance use type: denies use current occupational status: other Travel in the last 8 weeks: None household members: none housing: house lives independently: No marital status: education level: high school service: No current occupational exposures/hazards: No caffeine: No do you feel safe at home: Yes victim of physical abuse: No victim of emotional abuse: No victim of sexual abuse: No would you like helpful sources: No PM Subjective & Objective Subjective Subjective:: Patient is a pleasant 79-year-old female who presents today for 1 week postop follow-up of her spinal cord stimulator generator change out on 06/29/2024. Today she rates her pain a 3 out of 10. Patient denies any new trauma or injury. Patient states that the stimulation is doing good and that she was scheduled to meet with [employer] quality audit representative today however he had to reschedule to tomorrow. Patient denies any other issues following her surgery except she did seem to have a rash breakout from what ever skin prep they use. Patient states that it was more severe Tuesday and Tuesday however it is doing better but it does itch. Her Silvino has been reviewed and is appropriate Review of Systems: General: No recent weight changes, no fever, no sleep disturbances Respiratory: No cough, no shortness of air, no recurring pulmonary infections Cardiovascular/peripheral vascular: No chest pain, no palpitations, no edema, no shortness of breath Gastrointestinal: No new onset incontinence, normal bowel movements reported Genitourinary: No new onset incontinence Musculoskeletal: Low back pain Psychiatric: [Normal mood/affect] Neurological: [Denies weakness in extremities], [denies balance issues] Pain at rest (0-10 scale): 3 Objective Objective:: Physical Exam: General: Alert and oriented x3, no acute distress, pleasant and cooperative Lungs: Respirations even and unlabored, symmetrical chest expansion Eyes: PERRL Musculoskeletal: Flexion and extension of lumbar [spine] somewhat guarded secondary to pain, [antalgic gait noted] Neurological: Speech clear, no gross sensory deficit\ Skin: Incision sites are clean, dry, approximated with minimal erythema noted and sutures and brady intact along the left lateral incision, diffuse papular rash noted along the right side mid to low back Has patient had previous pain injection?: No Conservative treatment options previously tried: Home exercise plan Length of treatment: Longer than 6 weeks Meds Home Medications and Allergies Home Medications ?Medication ?Instructions ?Recorded ?Confirmed ?Type esomeprazole magnesium 40 mg 40 mg PO DAILY Heartburn 05/30/18 07/05/24 History capsule,delayed release levothyroxine 112 mcg tablet 112 mcg PO DAILY Hypothyroidism 05/30/18 07/05/24 History losartan 100 mg tablet 100 mg PO DAILY High blood pressure 05/30/18 07/05/24 History vitamin B complex 1 each PO DAILY Supplement 05/30/18 07/05/24 History melatonin 5 mg tablet 5 mg PO HS sleep 12/08/18 07/05/24 History furosemide 20 mg tablet 20 mg PO DAILY Edema 08/13/19 07/05/24 History simvastatin 40 mg tablet (Zocor) 40 mg PO QHS Cholesterol 09/06/19 07/05/24 History amlodipine 10 mg tablet 10 mg PO DAILY High Blood Pressure 04/20/23 07/05/24 History budesonide 3 mg 9 mg PO HS colitis 04/20/23 07/05/24 History capsule,delayed,extended release empagliflozin 25 mg tablet 25 mg PO DAILY Diabetes 04/20/23 07/05/24 History (Jardiance) omega-3 acid ethyl esters 1 gram 1 g PO BID fibromyalgia 04/20/23 07/05/24 History capsule (Lovaza) nebivolol 20 mg tablet (Bystolic) 20 mg PO DAILY 03/28/24 07/05/24 History diclofenac sodium 1 % topical gel 4 g topical QID PRN pain 30 days 04/16/24 07/05/24 Rx #100 grams budesonide-formoterol HFA 160 2 puff inhalation BID 04/18/24 07/05/24 History mcg-4.5 mcg/actuation aerosol inhaler potassium chloride 10 mEq 10 meq PO DAILY 04/18/24 07/05/24 History capsule,extended release sulfamethoxazole 800 1 tab PO BID 7 days #14 tabs 06/29/24 07/05/24 Rx mg-trimethoprim 160 mg tablet (Bactrim DS) New Prescriptions to Start Prescriptions: Allergies Allergy/AdvReac Type Severity Reaction Status Date / Time codeine [CODEINE] Allergy Unknown BLOOD Verified 06/29/24 06:43 PRESSURE DROPS gabapentin [From NEURONTIN] Allergy Unknown LEG Verified 06/29/24 06:43 SWELLING, RASH methylprednisolone Allergy Unknown HEART RACES Verified 06/29/24 06:43 [METHYLPREDNISOLONE] prednisone [PREDNISONE] Allergy Unknown HEART Verified 06/29/24 06:43 RACES, FT SWELLING hydrochlorothiazide AdvReac Intermediate Unknown Verified 06/29/24 06:43 allergy reaction chlorthalidone AdvReac Unknown Unknown Verified 06/29/24 06:43 allergy reaction erythromycin base AdvReac Unknown GI UPSET Verified 06/29/24 06:43 [ERYTHROMYCIN BASE] polymyxin B AdvReac Unknown Unknown Verified 06/29/24 06:43 allergy reaction Assessment and Plan *Assessment and plan (1) Degenerative disc disease, lumbar: Status: Acute Category: Medical Code(s): M51.36 - Other intervertebral disc degeneration, lumbar region (2) Lumbar radiculopathy: Status: Acute Category: Medical Code(s): M54.16 - Radiculopathy, lumbar region Plan Patient is doing well following her spinal cord stimulator replacement. I did discuss with patient that we typically use ChloraPrep as a cleansing solution in the OR and that we will sudhakar this as an allergy due to to the diffuse papular rash that is still present along her right side. Patient agrees with this. Patient was counseled to continue her postop restrictions the full 6 weeks. Patient will return to clinic in 2 weeks for reevaluation of symptoms and plan of care as well as suture removal. Patient has been instructed to contact the clinic with any concerns before the next appointment. Dr. Rueda has reviewed this note and agrees with this plan of care. This note was dictated using voice recognition software and make contain errors or omissions. All injections are used with Lidocaine or Bupivacaine and Depo Medrol.
== END 2024-07-05 23:59 | disposition home or self-care (01) ==
LOC: SC.PAIN 09:34
PROVIDERS: PCP Internal Medicine Adolescent Medicine; Visit Provider Nurse Practitioner Family
DX: M51.16 Intervertebral disc disorders with radiculopathy, lumbar region (principal); Z96.82 Presence of neurostimulator; Z87.891 Personal history of nicotine dependence; Z79.899 Other long term (current) drug therapy
CPT/HCPCS: 99212; G0463

== ENCOUNTER 2024-07-19 10:53 | Outpatient (POV) | payer MEDICARE, OTHER, SELFPAY ==
[2024-07-19 11:08] VITALS: BP 120/56; PULSE 60; RESP 16; O2SAT 97; BMI 34.0
--- NOTE | 2024-07-19 11:19 | EXP.PAIN.SOA ---
[facility] Disclaimer: The information contained in this section may have been updated after the patient was seen, as this information can be updated by other users. Medical History Urinary tract infection Diabetes mellitus, type 2 Hyperlipidemia Hypertension History of anemia Chronic obstructive pulmonary disease MALI on CPAP Coronary artery disease HLD (hyperlipidemia) Abnormal findings on diagnostic imaging of heart and coronary circulation Bilateral primary osteoarthritis of knee Colitis History of trigger finger Sleep apnea Irritable bowel syndrome (IBS) History of gastroesophageal reflux (GERD) History of cataract Skin cancer Sjogrens syndrome Obstructive sleep apnea Neuropathy Fibromyalgia Surgical History History of colonoscopy History of appendectomy Hx of foot surgery Hx of submucous nasal surgery Hx of spinal surgery H/O: hysterectomy History of thyroidectomy, total Hx of cholecystectomy Family History Other Family history of atrial fibrillation Family history of cancer Family history of diabetes mellitus type II Lung cancer Social History Smoking Status: Former smoker alcohol intake: current alcohol intake frequency: holidays/special occasions only substance use type: denies use current occupational status: other Travel in the last 8 weeks: None household members: none housing: house lives independently: No marital status: education level: high school service: No current occupational exposures/hazards: No caffeine: No do you feel safe at home: Yes victim of physical abuse: No victim of emotional abuse: No victim of sexual abuse: No would you like helpful sources: No PM Subjective & Objective Subjective Subjective:: Patient is a pleasant 79-year-old female who presents today for suture and staple removal. Today she rates her pain a 0 out of 10. She denies any new changes. Patient did meet with [employer] physician relations representative last Tuesday and had her stimulator reprogrammed with better coverage. She states that it is doing well. Her Silvino has been reviewed and is appropriate. Review of Systems: General: No recent weight changes, no fever, no sleep disturbances Respiratory: No cough, no shortness of air, no recurring pulmonary infections Cardiovascular/peripheral vascular: No chest pain, no palpitations, no edema, no shortness of breath Gastrointestinal: No new onset incontinence, normal bowel movements reported Genitourinary: No new onset incontinence Musculoskeletal: Low back pain Psychiatric: [Normal mood/affect] Neurological: [Denies weakness in extremities], [denies balance issues] Pain at rest (0-10 scale): 0 Objective Objective:: Physical Exam: General: Alert and oriented x3, no acute distress, pleasant and cooperative Lungs: Respirations even and unlabored, symmetrical chest expansion Eyes: PERRL Musculoskeletal: Flexion and extension of lumbar [spine] somewhat guarded secondary to pain, [antalgic gait noted] Neurological: Speech clear, no gross sensory deficit Has patient had previous pain injection?: No Conservative treatment options previously tried: Home exercise plan Length of treatment: Longer than 12 weeks Meds Home Medications and Allergies Home Medications ?Medication ?Instructions ?Recorded ?Confirmed ?Type esomeprazole magnesium 40 mg 40 mg PO DAILY Heartburn 05/30/18 07/19/24 History capsule,delayed release levothyroxine 112 mcg tablet 112 mcg PO DAILY Hypothyroidism 05/30/18 07/19/24 History losartan 100 mg tablet 100 mg PO DAILY High blood pressure 05/30/18 07/19/24 History vitamin B complex 1 each PO DAILY Supplement 05/30/18 07/19/24 History melatonin 5 mg tablet 5 mg PO HS sleep 12/08/18 07/19/24 History furosemide 20 mg tablet 20 mg PO DAILY Edema 08/13/19 07/19/24 History simvastatin 40 mg tablet (Zocor) 40 mg PO QHS Cholesterol 09/06/19 07/19/24 History amlodipine 10 mg tablet 10 mg PO DAILY High Blood Pressure 04/20/23 07/19/24 History budesonide 3 mg 9 mg PO HS colitis 04/20/23 07/19/24 History capsule,delayed,extended release empagliflozin 25 mg tablet 25 mg PO DAILY Diabetes 04/20/23 07/19/24 History (Jardiance) omega-3 acid ethyl esters 1 gram 1 g PO BID fibromyalgia 04/20/23 07/19/24 History capsule (Lovaza) nebivolol 20 mg tablet (Bystolic) 20 mg PO DAILY 03/28/24 07/19/24 History diclofenac sodium 1 % topical gel 4 g topical QID PRN pain 30 days 04/16/24 07/19/24 Rx #100 grams budesonide-formoterol HFA 160 2 puff inhalation BID 04/18/24 07/19/24 History mcg-4.5 mcg/actuation aerosol inhaler potassium chloride 10 mEq 10 meq PO DAILY 04/18/24 07/19/24 History capsule,extended release sulfamethoxazole 800 1 tab PO BID 7 days #14 tabs 06/29/24 07/19/24 Rx mg-trimethoprim 160 mg tablet (Bactrim DS) New Prescriptions to Start Prescriptions: Allergies Allergy/AdvReac Type Severity Reaction Status Date / Time codeine [CODEINE] Allergy Unknown BLOOD Verified 06/29/24 06:43 PRESSURE DROPS gabapentin [From NEURONTIN] Allergy Unknown LEG Verified 06/29/24 06:43 SWELLING, RASH methylprednisolone Allergy Unknown HEART RACES Verified 06/29/24 06:43 [METHYLPREDNISOLONE] prednisone [PREDNISONE] Allergy Unknown HEART Verified 06/29/24 06:43 RACES, FT SWELLING hydrochlorothiazide AdvReac Intermediate Unknown Verified 06/29/24 06:43 allergy reaction chlorthalidone AdvReac Unknown Unknown Verified 06/29/24 06:43 allergy reaction erythromycin base AdvReac Unknown GI UPSET Verified 06/29/24 06:43 [ERYTHROMYCIN BASE] polymyxin B AdvReac Unknown Unknown Verified 06/29/24 06:43 allergy reaction chlorhexidine AdvReac Rash Verified 07/11/24 10:41 [From ChloraPrep Clear] isopropyl alcohol AdvReac Rash Verified 07/11/24 10:41 [From ChloraPrep Clear] Assessment and Plan *Assessment and plan (1) Lumbar radiculopathy: Status: Acute Category: Medical Code(s): M54.16 - Radiculopathy, lumbar region (2) Degenerative disc disease, lumbar: Status: Acute Category: Medical Code(s): M51.36 - Other intervertebral disc degeneration, lumbar region Plan Patient is doing well from her spinal cord stimulator generator replacement and does not require any other interventions at this time. Patient did have her sutures and brady removed and Steri-Strips applied. She was counseled to continue her postop restrictions the full 6 weeks and she acknowledges understanding. Patient will return to clinic in 1 month for reevaluation of symptoms and plan of care. Patient has been instructed to contact the clinic with any concerns before the next appointment. Dr. Rueda has reviewed this note and agrees with this plan of care. This note was dictated using voice recognition software and make contain errors or omissions. All injections are used with Lidocaine or Bupivacaine and Depo Medrol.
== END 2024-07-19 23:59 | disposition home or self-care (01) ==
LOC: SC.PAIN 10:54
PROVIDERS: PCP Internal Medicine Adolescent Medicine; Visit Provider Nurse Practitioner Family
DX: M51.16 Intervertebral disc disorders with radiculopathy, lumbar region (principal); Z96.82 Presence of neurostimulator; Z87.891 Personal history of nicotine dependence; Z79.899 Other long term (current) drug therapy
CPT/HCPCS: 99213; G0463

== ENCOUNTER 2024-08-22 11:21 | Outpatient (POV) | payer MEDICARE, OTHER, SELFPAY ==
[2024-08-22 11:44] VITALS: BP 139/62; PULSE 62; RESP 16; O2SAT 96; BMI 43.6
--- NOTE | 2024-08-22 12:08 | EXP.PAIN.SOA ---
[facility] Disclaimer: The information contained in this section may have been updated after the patient was seen, as this information can be updated by other users. Medical History Nodule of right lung History of smoking 30 or more pack years Asthma Allergic rhinitis Dyspnea on exertion Urinary tract infection Diabetes mellitus, type 2 Hyperlipidemia Hypertension History of anemia Chronic obstructive pulmonary disease MALI on CPAP Coronary artery disease HLD (hyperlipidemia) Abnormal findings on diagnostic imaging of heart and coronary circulation Bilateral primary osteoarthritis of knee Colitis History of trigger finger SURGERY Sleep apnea Irritable bowel syndrome (IBS) History of gastroesophageal reflux (GERD) History of cataract Skin cancer Sjogrens syndrome Obstructive sleep apnea Neuropathy Hx of spinal surgery, stimulator in place Fibromyalgia Surgical History History of colonoscopy History of appendectomy Hx of foot surgery LEFT Hx of submucous nasal surgery Hx of spinal surgery stimulator H/O: hysterectomy History of thyroidectomy, total Hx of cholecystectomy Family History Other Family history of atrial fibrillation Family history of cancer Family history of diabetes mellitus type II Lung cancer Social History Smoking Status: Former smoker alcohol intake: current alcohol intake frequency: holidays/special occasions only substance use type: denies use current occupational status: other Travel in the last 8 weeks: None household members: none housing: house lives independently: No marital status: education level: high school service: No current occupational exposures/hazards: No caffeine: No do you feel safe at home: Yes victim of physical abuse: No victim of emotional abuse: No victim of sexual abuse: No would you like helpful sources: No PM Subjective & Objective Subjective Subjective:: Patient is a pleasant 79-year-old female who presents today for follow-up. Today she rates her pain a 0 out of 10. She denies any new trauma or injury. She states overall she is still doing wonderful with her Hernandez stimulator and does not require any additional reprogramming. Patient states she is doing well. She states her only issue currently is the fact that when she had RSV back last year she ended up getting asthma and so she is having to use a daily inhaler and this is causing additional weight gain which does not help her breathing and her overall back pain. Her Silvino has been reviewed and is appropriate. Review of Systems: General: No recent weight changes, no fever, no sleep disturbances Respiratory: No cough, no shortness of air, no recurring pulmonary infections Cardiovascular/peripheral vascular: No chest pain, no palpitations, no edema, no shortness of breath Gastrointestinal: No new onset incontinence, normal bowel movements reported Genitourinary: No new onset incontinence Musculoskeletal: Low back pain Psychiatric: [Normal mood/affect] Neurological: [Denies weakness in extremities], [denies balance issues] Pain at rest (0-10 scale): 0 Objective Objective:: Physical Exam: General: Alert and oriented x3, no acute distress, pleasant and cooperative Lungs: Respirations even and unlabored, symmetrical chest expansion Eyes: PERRL Musculoskeletal: Flexion and extension of lumbar [spine] somewhat guarded secondary to pain, [antalgic gait noted] Neurological: Speech clear, no gross sensory deficit Has patient had previous pain injection?: No Conservative treatment options previously tried: Home exercise plan Length of treatment: Longer than 12 weeks Meds Home Medications and Allergies Home Medications ?Medication ?Instructions ?Recorded ?Confirmed ?Type esomeprazole magnesium 40 mg 40 mg PO DAILY Heartburn 05/30/18 08/22/24 History capsule,delayed release levothyroxine 112 mcg tablet 112 mcg PO DAILY Hypothyroidism 05/30/18 08/22/24 History losartan 100 mg tablet 100 mg PO DAILY High blood pressure 05/30/18 08/22/24 History vitamin B complex 1 each PO DAILY Supplement 05/30/18 08/22/24 History melatonin 5 mg tablet 5 mg PO HS sleep 12/08/18 08/22/24 History furosemide 20 mg tablet 20 mg PO DAILY Edema 08/13/19 08/22/24 History simvastatin 40 mg tablet (Zocor) 40 mg PO QHS Cholesterol 09/06/19 08/22/24 History amlodipine 10 mg tablet 10 mg PO DAILY High Blood Pressure 04/20/23 08/22/24 History budesonide 3 mg 9 mg PO HS colitis 04/20/23 08/22/24 History capsule,delayed,extended release empagliflozin 25 mg tablet 25 mg PO DAILY Diabetes 04/20/23 08/22/24 History (Jardiance) omega-3 acid ethyl esters 1 gram 1 g PO BID fibromyalgia 04/20/23 08/22/24 History capsule (Lovaza) nebivolol 20 mg tablet (Bystolic) 20 mg PO DAILY 03/28/24 08/22/24 History diclofenac sodium 1 % topical gel 4 g topical QID PRN pain 30 days 04/16/24 08/22/24 Rx #100 grams potassium chloride 10 mEq 10 meq PO DAILY 04/18/24 08/22/24 History capsule,extended release aspirin 81 mg tablet,delayed 81 mg PO DAILY 08/08/24 08/22/24 History release (Adult Low Dose Aspirin) budesonide-formoterol HFA 160 2 puff inhalation BID 90 days 08/08/24 08/22/24 Rx mcg-4.5 mcg/actuation aerosol #10.2 grams inhaler (Symbicort) fluticasone propionate 100 1 inh inhalation BID 08/08/24 08/22/24 History mcg/actuation blister powder for inhalation New Prescriptions to Start Prescriptions: Allergies Allergy/AdvReac Type Severity Reaction Status Date / Time codeine [CODEINE] Allergy Unknown BLOOD Verified 08/16/24 14:50 PRESSURE DROPS gabapentin [From NEURONTIN] Allergy Unknown LEG Verified 08/16/24 14:50 SWELLING, RASH methylprednisolone Allergy Unknown HEART RACES Verified 08/16/24 14:50 [METHYLPREDNISOLONE] prednisone [PREDNISONE] Allergy Unknown HEART Verified 08/16/24 14:50 RACES, FT SWELLING hydrochlorothiazide AdvReac Intermediate Unknown Verified 08/16/24 14:50 allergy reaction chlorthalidone AdvReac Unknown Unknown Verified 08/16/24 14:50 allergy reaction erythromycin base AdvReac Unknown GI UPSET Verified 08/16/24 14:50 [ERYTHROMYCIN BASE] polymyxin B AdvReac Unknown Unknown Verified 08/16/24 14:50 allergy reaction chlorhexidine AdvReac Rash Verified 08/16/24 14:50 [From ChloraPrep Clear] isopropyl alcohol AdvReac Rash Verified 08/16/24 14:50 [From ChloraPrep Clear] Assessment and Plan *Assessment and plan (1) Degenerative disc disease, lumbar: Status: Acute Category: Medical Code(s): M51.36 - Other intervertebral disc degeneration, lumbar region (2) Lumbar radiculopathy: Status: Acute Category: Medical Code(s): M54.16 - Radiculopathy, lumbar region Plan Patient is doing well currently with her current stimulator programming and does not require any additional interventions. I did discuss with the patient regarding her asthma about possible rescue inhaler to have as needed. Patient states that there have been times that she could have used this. Patient does state that she is scheduled to meet with her primary care tomorrow and will discuss this. Patient will return to clinic in 6 months for reevaluation of symptoms and plan of care. Patient has been instructed to contact the clinic with any concerns before the next appointment. Dr. Rueda has reviewed this note and agrees with this plan of care. This note was dictated using voice recognition software and make contain errors or omissions. All injections are used with Lidocaine or Bupivacaine and Depo Medrol.
== END 2024-08-22 23:59 | disposition home or self-care (01) ==
LOC: SC.PAIN 11:22
PROVIDERS: PCP Internal Medicine Adolescent Medicine; Visit Provider Nurse Practitioner Family
DX: M51.16 Intervertebral disc disorders with radiculopathy, lumbar region (principal); Z87.891 Personal history of nicotine dependence; Z79.899 Other long term (current) drug therapy
CPT/HCPCS: 99212; G0463

== ENCOUNTER → 2024-10-30 20:11 | Outpatient (CLI) | payer MEDICARE, OTHER, SELFPAY | LOC: SL 20:14 | PROVIDERS: PCP Internal Medicine Adolescent Medicine; Visit Provider Specialist | DX: G47.33 Obstructive sleep apnea (adult) (pediatric) (principal); Z87.891 Personal history of nicotine dependence; I10 Essential (primary) hypertension | CPT/HCPCS: 95811 ==

== ENCOUNTER 2025-01-14 14:03 | Outpatient (CLI) | payer MEDICARE, OTHER, SELFPAY ==
--- NOTE | 2025-01-14 14:04 | CT_ITS ---
FINAL REPORT TECHNIQUE: Axial CT without IV contrast administration. This study was performed with techniques to keep radiation doses as low as reasonably achievable, (ALARA). Individualized dose reduction techniques using automated exposure control or adjustment of mA and/or kV according to the patient''s size were employed. CLINICAL HISTORY: Nodule follow-up COMPARISON: 04/03/2024 FINDINGS: There is a stable right upper lobe groundglass nodule measuring up to 6 mm. This is best seen on image 28. Mild lingular scarring is noted. No new pulmonary density is seen. No pleural or pericardial effusion is seen. No adenopathy or mass lesion is present. The patient is status postcholecystectomy. Limited images of the upper abdomen demonstrate bilateral renal cysts. IMPRESSION: Stable groundglass right upper lobe nodule is highly, likely benign. 12-month follow-up chest CT is recommended. Reviewed, Interpreted and Dictated by Violet Marte MD Transcribed by Fadia Clark Authenticated and [facility]
== END 2025-01-14 23:59 | disposition home or self-care (01) ==
LOC: RAD 14:04
PROVIDERS: PCP Internal Medicine Adolescent Medicine; Visit Provider Internal Medicine Pulmonary Disease
DX: R91.8 Other nonspecific abnormal finding of lung field (principal)
CPT/HCPCS: 71250

== ENCOUNTER 2025-02-12 13:11 | Outpatient (CLI) | payer MEDICARE, OTHER, SELFPAY ==
--- OUTSIDE RECORDS SUMMARY | 2025-02-12 13:14 | XMS_ITS | Continuity of Care Document ---
Author Name [facility] Organization [facility] Care Team Providers Care Payment Analyst Name Role Phone [facility] Unavailable Unavailable Medications Combined list of outpatient medications from Department of Defense and Veterans Affairs facilities.Medications provided include 1) outpatient medications from the last 15 months, and 2) patient-reported medications. Medication Details Route Status Patient Instructions Prescription Expires Prescription Number Last Dispense Date Ordering Provider Order Date Order Qty Source AMLODIPINE BESYLATE (AMLODIPINE BESYLATE), 10 MG, TABLET, ORAL, [employer], 1000 ea. BOTTLE Active [id number] 4 2023 90 Pharmac y Data Transac tion Service Facilit y BUDESONIDE- FORMOTEROL FUMARATE (budesonide /formoterol fumarate), 160-4.5MCG, HFA AER AD, INHALATION, ASTRAZENECA /PRA, 10.2 g AER W/ADAP Active [id number] 4 2023 30.6 Pharmac y Data Transac tion Service Facilit y BUDESONIDE- FORMOTEROL FUMARATE (budesonide /formoterol fumarate), 160-4.5MCG, HFA AER AD, INHALATION, ASTRAZENECA /PRA, 10.2 g AER W/ADAP Active [id number] 4 2023 30.6 Pharmac y Data Transac tion Service Facilit y ESOMEPRAZOL E MAGNESIUM (esomeprazo le magnesium), 40 MG, CAPSULE DR ORAL, WILEY BANERJEE, 30 ea. BOTTLE Active [id number] 4 2023 90 Pharmac y Data Transac tion Service Facilit y HEPLISAV-B (hepatitis B vaccine recombinant /vaccine adjuvant CpG 1018/PF), 20 MCG/0.5, SYRINGE, INTRAMUSC, DYNAVAX TECHNOL, .5 ml SYRINGE Active [id number] 4 2023 0.5 Pharmac y Data Transac tion Service Facilit y LOSARTAN POTASSIUM (losartan potassium), 100 MG, TABLET, ORAL, XLCARE PHARMACE, 1000 ea. BOTTLE Active [id number] 4 2023 90 Pharmac y Data Transac tion Service Facilit y LOSARTAN POTASSIUM (losartan potassium), 100 MG, TABLET, ORAL, XLCARE PHARMACE, 1000 ea. BOTTLE Active [id number] 4 2023 90 Pharmac y Data Transac tion Service Facilit y OMEGA-3 ACID ETHYL ESTERS (omega-3 acid ethyl esters), 1 G, CAPSULE, ORAL, AMNEAL PHARMACE, 120 ea. BOTTLE Active [id number] 4 2023 180 Pharmac y Data Transac tion Service Facilit y POTASSIUM CHLORIDE (potassium chloride), 10 MEQ, CAPSULE ER, ORAL, GRANULES PHARMA, 100 ea. BOTTLE Cancele d [id number] : 2023 0 Pharmac y Data Transac tion Service Facilit y POTASSIUM CHLORIDE (potassium chloride), 10 MEQ, CAPSULE ER, ORAL, GRANULES PHARMA, 100 ea. BOTTLE Cancele d [id number] : 2023 0 Pharmac y Data Transac tion Service Facilit y POTASSIUM CHLORIDE (potassium chloride), 10 MEQ, CAPSULE ER, ORAL, GRANULES PHARMA, 100 ea. BOTTLE Active [id number] 4 2023 180 Pharmac y Data Transac tion Service Facilit y SHINGRIX (varicella- zoster virus glycoprotei n E,rec/AS01B adjuvant/PF ), 50 MCG/0.5, KIT, INTRAMUSC, GLAXOSMITHK LINE, 1 ea. KIT Active [id number] 4 2023 1 Pharmac y Data Transac tion Service Facilit y SHINGRIX (varicella- zoster virus glycoprotei n E,rec/AS01B adjuvant/PF ), 50 MCG/0.5, KIT, INTRAMUSC, GLAXOSMITHK LINE, 1 ea. KIT Active [id number] 4 2023 1 Pharmac y Data Transac tion Service Facilit y SIMVASTATIN (simvastati n), 40 MG, TABLET, ORAL, PURACAP LABORAT, 1000 ea. BOTTLE Active [id number] 4 2023 90 Pharmac y Data Transac tion Service Facilit y SIMVASTATIN (simvastati n), 40 MG, TABLET, ORAL, PURACAP LABORAT, 1000 ea. BOTTLE Active [id number] 4 2023 90 Pharmac y Data Transac tion Service Facilit y Immunizations Combined list of available immunizations from the Department of Defense and Veterans Affairs facilities. Immunization Series Date Given Administered By Site Reaction Lot Number CVX Code Drug Catheter Builder Status Comments Source zoster recombinant 2023 () Not Given zoster recombina nt DoD HepB-CpG 2023 () Not Given HepB-CpG DoD zoster recombinant 2023 () Not Given zoster recombina nt DoD COVID-19, mRNA, LNP-S, PF, 100 mcg or 50 mcg dose 2021 CHARLES [employer] (MOD) Not Given COVID-19, mRNA, LNP-S, PF, 100 mcg or 50 mcg dose DoD COVID-19, mRNA, LNP-S, PF, 100 mcg or 50 mcg dose 2020 NICKIE JEFFRIES [employer] (MOD) Not Given COVID-19, mRNA, LNP-S, PF, 100 mcg or 50 mcg dose DoD Hep A, adult 2018 MICHAEL, () Not Given Hep A, adult DoD Hep A, adult 2018 MICHAEL, () Not Given Hep A, adult DoD zoster live 2014 MELODY LINDER () Not Given zoster live DoD Social History Combined list of available smoking, tobacco, and other social history from Department of Defense and Veterans Affairs facilities. Social History Type Response Date Comment Sour e This section is an empty social history section. DoD
--- NOTE | 2025-02-12 13:18 | XR_ITS ---
FINAL REPORT CLINICAL HISTORY: pain COMPARISON: None FINDINGS: LEFT FOOT Three views of the left foot demonstrate no acute fracture or dislocation. There is a small plantar spur. The visualized joint spaces are normally aligned. The soft tissues are unremarkable. IMPRESSION: No acute bony abnormality. Reviewed, Interpreted and Dictated by Last Lin MD Transcribed by Sherin Hillman Authenticated and [facility]
== END 2025-02-12 23:59 | disposition home or self-care (01) ==
LOC: RAD 13:13
PROVIDERS: PCP Nurse Practitioner Family; Visit Provider Nurse Practitioner Family
DX: M79.672 Pain in left foot (principal)
CPT/HCPCS: 73630

== ENCOUNTER 2025-03-21 12:36 | Outpatient (CLI) | payer MEDICARE, OTHER, SELFPAY ==
--- OUTSIDE RECORDS SUMMARY | 2025-03-21 12:40 | XMS_ITS | Continuity of Care Document ---
Author Name [facility] Organization [facility] Care Team Providers Care Coil Binder Name Role Phone [facility] Unavailable Unavailable Medications Combined list of outpatient medications from Department of Defense and Veterans Affairs facilities.Medications provided include 1) outpatient medications from the last 15 months, and 2) patient-reported medications. Medication Details Route Status Patient Instructions Prescription Expires Prescription Number Last Dispense Date Ordering Provider Order Date Order Qty Source AMLODIPINE BESYLATE (AMLODIPINE BESYLATE), 10 MG, TABLET, ORAL, Pinocular, 1000 ea. BOTTLE Active [id number] 4 2023 90 Pharmac y Data Transac tion Service Facilit y BUDESONIDE- FORMOTEROL FUMARATE (budesonide /formoterol fumarate), 160-4.5MCG, HFA AER AD, INHALATION, ASTRAZENECA /PRA, 10.2 g AER W/ADAP Active [id number] 4 2023 30.6 Pharmac y Data Transac tion Service Facilit y BUDESONIDE- FORMOTEROL FUMARATE (budesonide /formoterol fumarate), 160-4.5MCG, HFA AER AD, INHALATION, ASTRAZENECA /PRA, 10.2 g AER W/ADAP Active [id number] 4 2023 30.6 Pharmac y Data Transac tion Service Facilit y ESOMEPRAZOL E MAGNESIUM (esomeprazo le magnesium), 40 MG, CAPSULE DR ORAL, WILEY BANERJEE, 30 ea. BOTTLE Active [id number] 4 2023 90 Pharmac y Data Transac tion Service Facilit y HEPLISAV-B (hepatitis B vaccine recombinant /vaccine adjuvant CpG 1018/PF), 20 MCG/0.5, SYRINGE, INTRAMUSC, DYNAVAX TECHNOL, .5 ml SYRINGE Active [id number] 4 2023 0.5 Pharmac y Data Transac tion Service Facilit y OMEGA-3 ACID ETHYL ESTERS (omega-3 acid ethyl esters), 1 G, CAPSULE, ORAL, AMNEAL PHARMACE, 120 ea. BOTTLE Active [id number] 4 2023 180 Pharmac y Data Transac tion Service Facilit y POTASSIUM CHLORIDE (potassium chloride), 10 MEQ, CAPSULE ER, ORAL, GRANULES PHARMA, 100 ea. BOTTLE Cancele d [id number] 4 [id number] : 2023 0 Pharmac y Data Transac tion Service Facilit y POTASSIUM CHLORIDE (potassium chloride), 10 MEQ, CAPSULE ER, ORAL, GRANULES PHARMA, 100 ea. BOTTLE Cancele d [id number] : 2023 0 Pharmac y Data Transac tion Service Facilit y POTASSIUM CHLORIDE (potassium chloride), 10 MEQ, CAPSULE ER, ORAL, GRANULES PHARMA, 100 ea. BOTTLE Active [id number] 4 2023 180 Pharmac y Data Transac tion Service Facilit y SHINGRIX (varicella- zoster virus glycoprotei n E,rec/AS01B adjuvant/PF ), 50 MCG/0.5, KIT, INTRAMUSC, GLAXOSMITHK LINE, 1 ea. KIT Active [id number] 4 2023 1 Pharmac y Data Transac tion Service Facilit y SIMVASTATIN (simvastati n), 40 MG, TABLET, ORAL, PURACAP LABORAT, 1000 ea. BOTTLE Active [id number] 4 2023 90 Pharmac y Data Transac tion Service Facilit y SIMVASTATIN (simvastati n), 40 MG, TABLET, ORAL, PURACAP LABORAT, 1000 ea. BOTTLE Active [id number] 4 2023 90 Pharmac y Data Transac tion Service Facilit y Immunizations Combined list of available immunizations from the Department of Defense and Veterans Affairs facilities. Immunization Series Date Given Administered By Site Reaction Lot Number CVX Code Drug Ep Technologist Status Comments Source zoster recombinant 2023 () Not Given zoster recombina nt DoD HepB-CpG 2023 () Not Given HepB-CpG DoD zoster recombinant 2023 () Not Given zoster recombina nt DoD COVID-19, mRNA, LNP-S, PF, 100 mcg or 50 mcg dose 2021 CHARLES, [employer] (MOD) Not Given COVID-19, mRNA, LNP-S, PF, 100 mcg or 50 mcg dose DoD COVID-19, mRNA, LNP-S, PF, 100 mcg or 50 mcg dose 2020 NICKIE JEFFRIES, [employer] (MOD) Not Given COVID-19, mRNA, LNP-S, [...]
--- OUTSIDE RECORDS SUMMARY | 2025-03-21 12:42 | XMS_ITS | Data Portability ---
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 Marroquin has a [employer] spinal cord stimulator system. The battery was changed 6 months ago but she lost stimulation into the right lower extremity. It sounds as if there is a lead problem.He describes bilateral back pain and lower extremity pain. She's not had any imaging of the spine and years from what it sounds like. I want her to get a thoracic and lumbar myelogram. She cannot get an MRI scan because the impedances in the leads or abnormal. This is what the [employer] public health representative told me today. I agree with this. I just want to make sure there is no area of severe thoracic stenosis that would make revising Sreekanth dangerous to make sure she doesn't have severe lumbar stenosis. I also want to get AP and lateral thoracic and lumbar x-rays to get a [place] view of the electrodes so that I can use them as a comparison during surgery during the revision. I'm assuming it was have to replace the paddle leads which hopefully won't be terribly difficult. I will have to open the battery pocket and technically revised the battery as well his we will have to put a new leads and Fix them to the pre-existing battery. We may keep her in the hospital overnight. She was happy with the plan.If there is any big problems that I note on the imaging I will N no. She was happy with the plan. mary Not available 08/07/2019 16:05:49 09/24/2019 09/24/2019 Routine staple removal s/p REV. [facility] SCS SYSTEM 09-07-19. Her incision healed nicely, went ahead w/ the removal. She handled the procedure well. nyasia Not available 09/24/2019 13:48:10 10/16/2019 10/16/2019 Ms. Marroquin is doing well after undergoing a [employer] Derek spinal cord stimulator system revision. She's getting good coverage in her legs. The [employer] public health representative meet with her today. Hopefully he'll Julia get some more coverage into her low back. She also has positional stimulation in the left anterior thigh when lying down. From a surgical standpoint she doing well. She's happy with the results of surgery. She still has a fair bit of thoracic act pain from the incision saw give her some Ashby 5 tablets. We will not be refilling this. I'll see her on a when necessary basis. mary Not available 10/16/2019 10:15:49 Plan of Treatment Reminders Order Date Submit Date Provider Last Modified By Organization Details Last Modified Time Details Appointments None record ed. Lab None record ed. Referral None record ed. Procedures None record ed. Surgeries None record ed. Imaging None record ed. Medication Orders None record ed. Patient TargetsNo targets recorded. Patient InstructionsNo instructions recorded. Reason for Referral None Reported. Results Created Date Observation Date Name Description Value Unit Range Abnormal Flag Note LastModifiedBy Organization Detail LastModifiedTime 08/07/20 19 08/07/2019 XR, lumbo sacra l spine , 2 or 3 view [place] [id number] [place] [address] Nancyalvaro ogden Name: RAYSA ogden : [address] Orderi ng Provid er: SENDY QUINTANILLA EXAM DATE: 2018 EXAM: XR LUMBAR AP/LAT CLINIC AL INFORM ATION: Back pain. IMAGES PROVID ED: AP, latera l and coned- down views of the lumbar spine. COMPAR MYKE: None. FINDIN GS: Curvat ure, alignm ent, verteb ral body height s are normal . Multil evel disc space reduct ion is seen with anteri or and latera l osteop hytes. No radiog raphic eviden ce of injury is noted. IMPRES LATASHA: Degene rative change s of the lumbar spine. Interp reted By: Meg Miranda MD Electr onical ly Signed By: Meg Miranda MD on 2018 2:[address] Radiology [facility] [address] [place], [address], 08/22/2019 16:18:40 08/07/20 19 08/07/2019 XR, thora cic spine , 2 view [facility] [address] [facility] [place] [address] Esperanza ogden Name: RAYSA ogden : [address] Orderi ng Provid er: SENDY QUINTANILLA EXAM DATE: 2018 EXAM: XR THORAC IC AP/LAT CLINIC AL INFORM ATION: Back pain. IMAGES PROVID ED: AP, and latera l views of the thorac ic spine. COMPAR MYKE: None. FINDIN GS: Cord stimul ator is noted in situ with electr odes at T10 level. Curvat ure, alignm ent, verteb ral body height s and disc spaces are normal . Osteop hytes are seen at multip le levels . No radiog raphic eviden ce of injury is noted. IMPRES LATASHA: Mild degene rative change s of the thorac ic spine. Interp reted By: Meg Miranda MD Electr onical ly Signed By: Meg Miranda MD on 2018 2:[email or web address] Radiology [facility] [address] [place], [address], 08/22/2019 16:18:39 08/31/20 19 08/31/2019 CT, myelo gram, thora cic spine No observ ation record ed. [email or web address] (Main) [address], [place], [address], 09/05/2019 15:07:29 09/07/20 19 09/07/2019 fluor oscop y (PROC ) No observ ation record ed. [email or web address] [facility] (Main) [address] [facility] , [place], [address], 09/14/2019 07:59:48 Result Notes None recorded. Procedures Surgical History Date Name Laterality Status Provider Name and Address Organization Details Recorded Time 09/07/20 PERMANENT PLACEMENT OF SPINAL CORD STIMULATOR (SURG) completed Helena Consuelo [facility] 10/16/2019 10:03:28 04/04/20 Spine Surgery completed [facility] 08/07/2019 08:57:17 hysterectomy completed [facility] 08/07/2019 08:55:14 Unlisted px foot/toes completed [facility] 08/07/2019 08:55:39 Unlisted px accessory sinus completed [facility] 08/07/2019 08:55:48 Cholecystectomy completed [facility] 08/07/2019 08:55:57 Thyroid Surgery completed [facility] 08/07/2019 08:56:08 Imaging Results None recorded. Procedure Notes None recorded. Medical Equipment None Reported. Allergies Allergen ID Allergen Name Allergen Category Reaction Reaction Severity Criticality Documentation Date Start Date Code Code System Note Provider Name and Address Organization Details Recorded Time 088297 Medrol medicatio n Not available Not available Not available 09/10/20162008 2 RxNorm Comme nt: Creat ed By: Teo smith;Cr eated Date: 2008 3:13: 21 PM; Not Available [facility] 6 05:16:58 [id number] Neurontin medicatio n Not available Not available Not available 09/10/20162008 72659 8 RxNorm Comme nt: Creat ed By: Teo smith;Cr eated Date: 2008 3:12: 57 PM; Not Available [facility] 6 06:14:12 [id number] E-Mycin medicatio n Not available Not available Not available 09/10/20162008 8 RxNorm Comme nt: Creat ed By: Bruce Katey yn;Cr eated Date: 2008 3:13: 08 PM; Not Available [facility] 6 08:57:17 030694 Bactrim medicatio n Not available Not available Not available 09/10/20162010 71014 9 RxNorm Comme nt: Creat ed By: Gonzalez Alvarez michelle Date: 2010 11:00 :49 AM; Not Available [facility] 6 08:57:17 410852 codeine medicatio n Not available Not available Not available 08/07/2019 2670 Rx[address] [facility] 9 08:50:39 655342 prednison e medicatio n Not available Not available Not available 08/07/2019 8640 RxNorm [address] [facility] 08:50:49 Medications Name Sig Start Date Stop Date Status Note LastModified by Organization Details LastModified Time Nexium 40 mg capsule,d elayed release Take 1 capsule every day by oral route. active Not Available Not Available No t Available Aspir-Low 81 mg tablet,de layed release Daily 08/07 completed Duration : 10 days;Vic quency: daily;Me dication Descript ion: aspirin; Dosage:1 ; Route:or al; refills: 0; Quantity :30 tablet Not Available Not Available Not Available Valium 5 mg tablet Daily active Duration : 10 days;Vic quency: daily;Al t Frequenc y: prn;Medi cation Descript ion: diazepam ; Dosage:1 ; Route:or al; refills: 0; Quantity :30 tablet Not Available Not Available Not Available baclofen 10 mg tablet 08/07 completed Medicati on Descript ion: baclofen ; Dosage:a s directed ; Route:or al; refills: 0 Not Available Not Available Not Available MetroCrea m 0.75 % topical Two times a day 08/07 completed Frequenc y: bid;Medi cation Descript ion: metronid azole topical; Dosage:a s directed ; Route:to pical; refills: 11; Quantity :1 cream Not Available Not Available Not Available lisinopri l 5 mg tablet 08/07 completed Medicati on Descript ion: lisinopr il; Dosage:a s directed ; Route:or al; refills: 0 Not Available Not Available Not Available hydrochlo rothiazid e 25 mg tablet Daily 08/07 completed Duration : 10 days;Vic quency: daily;Me dication Descript ion: hydrochl orothiaz jackeline; Dosage:1 /2; Route:or al; refills: 0; Quantity :30 tablet Not Available Not Available Not Available Percocet 5 mg-325 mg tablet Take 1 tablet every 6 hours by oral route as needed. 2018 active Not Available Not Available Not Avai lable Ashby 5 mg-325 mg tablet Take 1 tablet every 8 hours by oral route as needed. 2018 active Not Available Not Available Not Avai lable losartan 100 mg tablet Take 1 tablet every day by oral route. active Not Available Not Available No t Available Zocor 40 mg tablet Daily active Duration : 30 days;Vic quency: daily;Me dication Descript ion: simvasta tin; Dosage:1 ; Route:or al; refills: 5; Quantity :30 tablet Not Available Not Available Not Available potassium chloride 08/07 completed Medicati on Descript ion: potassiu m chloride ; Dosage:a s directed ; Route:or al; refills: 0 Not Available Not Available Not Available Calcium-V itamin D 08/07 completed Medicati on Descript ion: calcium and vitamin D combinat ion; Dosage:a s directed ; Route:or al; refills: 0 Not Available Not Available Not Available vitamin E 08/07 completed Medicati on Descript ion: vitamin E; Dosage:a s directed ; Route:or al; refills: 0 Not Available Not Available Not Available multivita min 08/07 completed Medicati on Descript ion: multivit villa; Dosage:a s directed ; Route:or al; refills: 0 Not Available Not Available Not Available Vitamin B-Complex active Medicati on Descript ion: multivit villa; Dosage:a s directed ; Route:or al; refills: 0 Not Available Not Available Not Available Cymbalta 08/07 completed Medicati on Descript ion: duloxeti ne hydrochl oride; Route:or al; refills: 0 Not Available Not Available Not Available Lovaza 1 gram capsule active Medicati on Descript ion: omega-3 polyunsa turated fatty acids; Dosage:a s directed ; Route:or al; refills: 0 Not Available Not Available Not Available Bystolic 5 mg tablet Take 1 tablet every day by oral route. active Not Available Not Available No t Available Savella 50 mg tablet Two times a day 08/07 completed Frequenc y: bid;Medi cation Descript ion: milnacip ran HCL; Dosage:1 ; Route:or al; refills: 0 Not Available Not Available Not Available melatonin 5 mg capsule Take by oral route. active Not Available Not Available No t Available Osteo Bi-Flex 08/07 completed Medicati on Descript ion: miscella neous; Dosage:a s directed ; refills: 0 Not Available Not Available Not Available Vitals Date Recorded Body height Body mass index (BMI) Body weight Systolic blood pressure Diastolic blood pressure Provider Name and Address Organization Details Last Updated DateTime 08/07/2019 172.72 cm 33.1 kg/m2 33157.14 g 178 mm[Hg] 80 mm[Hg] [facility] 9 08:50:02 Date Recorded Body height Body mass index (BMI) Body weight Systolic blood pressure Diastolic blood pressure Provider Name and Address Organization Details Last Updated DateTime 10/16/2019 172.72 cm 33.1 kg/m2 61256.14 g 172 mm[Hg] 86 mm[Hg] [facility] 9 10:03:17 Social History None recorded. Functional Status None recorded. Mental Status None recorded. Family History Nothing Reported. Medical History Condition Response Arthritis Y Cancer Y Sleep Apnea Y Thyroid Disorder Y Fibromyalgia Y Hypertension Y Gynecological HistoryNo gynecological history recorded. Obstetrics History GPAL:G 0 P 0 0 0 0 Past Encounters Encounter ID Performer Location Encounter Start Date Encounter Closed Date Diagnosis/Indication Diagnosis SNOMED-CT Code Diagnosis ICD10 Code Diagnosis Note [id number] SENDY QUINTANILLA MD [facility] [address] [place] [address] 08/07/2019 08:23:04 08/08/2019 13:59:37 Chronic pain syndrome 618570364 G89.4 [id number] SENDY QUINTANILLA MD NEUROSURG [facility] [address] [place] [address] 09/24/2019 13:02:56 09/24/2019 13:06:45 [id number] SENDY QUINTANILLA MD SURGERY SCHEDULE [address] [place] [address] 10/01/2019 16:22:43 10/02/2019 15:41:48 [id number] SENDY QUINTANILLA MD [facility]UROSURG [facility] [address] [place] [address] 10/16/2019 09:58:58 10/18/2019 11:05:56 Chronic pain syndrome 522939058 G89.4 Health Concerns Section Related Observation LastModified by Organization Detai ls LastModified Time None Recorded Concern Status LastModified by Organization Details LastModified Time None Recorded Advance Directives Directive None Recorded Payers Insurance Date Sequence Insurance Name Policy Number Policy Collado Covered Member ID Collado Member ID Guarantor Name 10/18/2019 2 FOR LIFE ( - MEDICARE SUPPLEMENT) Raysa Marroquin [id number] Raysa Marroquin 09/22/2019 1 [place] Raysa Marroquin [id number] Raysa Marroquin Notes Date Note Type Note Provider Name and Address Organization Details Recorded Time 08/07/2019 text/html I saw Mrs. Louisa ayala in the office. She 74 years old. She states she's had chronic back and leg pain and is been diagnosed with neuropathy. It sounds as if Dr. rand performed a spinal cord stimulator trial remotely. In [address] Dr. Guzmán placed a [facility] spinal cord stimulator system via laminectomy. Dr. Sandro taylor in [place] revised the battery about 6 months ago. She states that a month afterword she lost stimulation into the right lower extremity. She needs stimulation in the back and into the lower extremities diffusely. She's currently getting stimulation in the left-sided low back down to the left lower extremity and foot. I was able to talk with Ananda dolores the [employer] public health representative. It sounds as if her impedances have been abnormal since the stimulation was lost. SENDY QUINTANILLA MD [address] [place] [address], [address], [facility] 08/07/2019 16:06:21 10/16/2019 text/html I saw Mrs. Louisa ayala in follow-up. I revised her [facility] spinal cord similar system on September 07, 2019. Was placed into thousand 10. The battery was placed in March 2019 and she lost coverage. Some of the left sided lecturer his route. We replace the leads revise the battery. She's doing well overall. She's getting good coverage in the pain in her legs. She wants to have more coverage into her back. She has some burning in the left anterior thigh when she is lying down. The [employer] public health representative is going to reprogram her system today.She has some pain around the thoracic incision which is slowly improving. She has some chronic thoracic spasm. SENDY QUINTANILLA MD [address] [place] [address], [address], [facility] 10/16/2019 10:16:08 OBGyn Episode No OBEpisode recorded.
--- NOTE | 2025-03-21 12:44 | XR_ITS ---
FINAL REPORT CLINICAL HISTORY: left knee pain COMPARISON: 12/13/2023 FINDINGS: RIGHT KNEE: 4 views of the right knee obtained. There is no acute fracture or dislocation. Mild degenerative joint disease is noted, similar to the prior exam. . There is no soft tissue abnormality. IMPRESSION: Mild degenerative change, similar to the prior exam, with no acute fracture. Reviewed, Interpreted and Dictated by Arminda Morgan MD Transcribed by Shanti Meyer Authenticated and [facility]
== END 2025-03-21 23:59 | disposition home or self-care (01) ==
LOC: LAB 12:40 → RAD 12:45
PROVIDERS: PCP Internal Medicine Adolescent Medicine; Visit Provider Physician Assistant Surgical
DX: M17.12 Unilateral primary osteoarthritis, left knee (principal)
CPT/HCPCS: 73564

== ENCOUNTER 2025-09-19 13:09 | Outpatient (CLI) | payer MEDICARE, OTHER, SELFPAY ==
--- NOTE | 2025-09-19 13:13 | XR_ITS ---
FINAL REPORT TECHNIQUE: 5 views CLINICAL HISTORY: LUMBAR DISC DISEASE COMPARISON: None FINDINGS: LUMBAR SPINE: AP, oblique and lateral views of the lumbar spine were obtained. There is no prior exam for comparison. There is a stimulator device present with the distal leads at the T10 level. There is no acute fracture or malalignment. Vertebral body height is preserved. Multilevel osteophytes are noted particularly at the L1-2 and L2-3 levels. Disc space height is preserved. There is facet sclerosis present in the lower lumbar spine. No acute paraspinal abnormality. IMPRESSION: Degenerative changes, with no acute process. Reviewed, Interpreted and Dictated by Last Lin MD Transcribed by Shanti Meyer Authenticated and [facility]
--- OUTSIDE RECORDS SUMMARY | 2025-09-19 13:15 | XMS_ITS | Encounter Summary ---
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 Machine Operator Name Role Phone Unavailable Primary Care Provider Unavailabl e Encounter Details Date Type Department Care Team (Late st Contact Info) Description 08/31/2019 Transcribed Document [facility] [place] [facility] [address] ProviderAsh MD [facility], [facility] [place] [address] Social History Tobacco Use Types Packs/Day Years Used Date Smoking Tobacco: Never Assessed Comments Unknown Sex and Gender Information Value Date Recorded Sex Assigned at Female 04/15/2022 6:39 PM CDT Legal Sex Female 6:49 PM CDT Gender Identity Female 04/15/2022 6:39 PM CDT Sexual Orientation Not on file documented as of this encounter Miscellaneous Notes * Cerner Conversion Note - Historical ProviderMD - 08/31/2019 1:58 PM DIETETICS DIRECTOR PAT Adult Entered On: 08/31/2019 14:07 EST Performed On: 08/31/2019 13:58 EST by DELFINO MAYO RN Height and Weight, Clinical Dosing Height Source : Measured Height Entry Format : [place] Height, Feet : 5 ft(Converted to: 152 cm, 60 Inch) Height, Inches : 8 Inch(Converted to: 0 ft 8 Inch, 20.32 cm) Clinical Height : 172.72 cm Weight Source : Standing scale Weight Entry Format : [place] Clinical Dosing Weight : 100.23 kg Weight, Pounds : 220 lb Weight, Ounces : 8 oz Body Surface Area (BSA) : 2.13 m2 Body Mass Index : 33.6 kg/m2 (HI) [place] Body Weight : 63 kg DELFINO MAYO RN - 08/31/2019 13:58 EST Health Histories Smoking Status : Former smoker, quit more than 30 days ago Smokeless Tobacco Status : Never DELFINO MAYO RN - 08/31/2019 13:58 EST Social History (As Of: 08/31/2019 14:07:52 EST) Tobacco: Former smoker, quit more than 30 days ago Smoking Status. Never Smokeless Tobacco Status. None Smokeless Tobacco Use History. Years of Use: 30. Packs/Tins Daily: 0.75. Last Used: quit 1995. (Last Updated: 08/31/2019 13:59:51 EST by DELFINO MAYO RN) Alcohol: Alcohol Use History Yes. Alcohol Use Frequency Rarely, Socially. (Last Updated: 08/31/2019 14:00:10 EST by DELFINO MAYO, RN) Substance Abuse: Drug Use Hx: No. Use in Last 12 Months: No. (Last Updated: 08/31/2019 14:00:16 EST by DELFINO MAYO, RN) Home/Environment: Lives with Alone. Living situation: Home/Independent. Home equipment: CPAP/BiPAP. (Last Updated: 08/31/2019 14:00:41 EST by DELFINO MAYO, RN) Employment/School: Retired (Last Updated: 08/31/2019 14:00:50 EST by DELFINO MAYO, RN) Infectious Disease History Infectious Disease History : C-Difficile, Chicken pox/Shingles, Measles, Mumps Active Surveillance Screen Assessment : Patient does not meet any of above criteria Active Surveillance Screen Negative : Yes Travel To Regions with Travel Advisories : No Travel Outside [place] Within Last 30 Days : No Contact With Traveler to Advisory Region : No Tuberculosis Symptoms : None DELFINO MAYO RN - 08/31/2019 13:58 EST Anesthesia/Transfusion History Family History of Anesthesia Reaction : No prior transfusion(s) Blood Transfusion Acceptable to Patient : Yes Transfusion History : Prior anesthesia without reaction Family History of Anesthesia Reaction : None DELFINO MAYO RN - 08/31/2019 13:58 EST Functional Assessment Functional ADL Evaluation Index EBN Bathing : Independent (2) Dressing : Independent (2) Toileting : Independent (2) Transferring Bed or Chair : Independent (2) Continence : Independent (2) Feeding : Independent (2) DELFINO MAYO RN - 08/31/2019 13:58 EST ADL Index Score : 12 DELFINO MAYO RN - 08/31/2019 13:58 EST Advance Directive Patient has Advance Directive *Q : No, patient requests information about Advance Directive DELFINO MAYO RN - 08/31/2019 13:58 EST Spiritual/Cultural Needs Any Spiritual/Cultural Needs or Requests : Yes Spiritual/Cultural Needs Comment : surgery on Sep 07 in at Spiritual/Cult Concerns/Desires/Needs : Prayer Spiritual/Cultural Needs Comment : surgery on Sep 07 in at DELFINO MAYO RN - 08/31/2019 13:58 EST Ward Suicide Severity Rating Scale (C-SSRS) CSSRS Past Month Wish to be : No CSSRS Past Month Suicidal Thoughts : No CSSRS Lifetime Suicide Behavior : No Suicide Severity Rating Score : 0 Suicide Severity Rating : No Additional Care Required at this time DELFINO MAYO RN - 08/31/2019 13:58 EST Psychosocial History Currently in Unsafe Situation : No DELFINO MAYO RN - 08/31/2019 13:58 EST Education Topics, Periop Preadmission Perioperative Education Grid Arrival Time/Place : Verbalizes understanding CHG Preoperative Bathing/Cloths : Verbalizes understanding Falls : Verbalizes understanding Infection Control : Verbalizes understanding IV's : Verbalizes understanding NPO Status/Directions : Verbalizes understanding Pain Management : Verbalizes understanding Preprocedure Preparations : Verbalizes understanding Preprocedure Tests/Labs : Verbalizes understanding Remove Body Piercings : Verbalizes understanding Take/Hold Medications Pre-Procedure : Verbalizes understanding DELFINO MAYO RN - 08/31/2019 13:58 EST General Info Preferred Name : Mya Patient Arrival Date/Time : 09/07/2019 8:59 EST ISABELL Huang RN - 09/07/2019 9:21 EST Arrived From : Home Mode of Arrival on Unit : Ambulatory Legal Guardian : Daughter Support Person/Patient 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 Food 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 : Yes Support Person/Pt Rep Name : january dtr Support Person/Pt Rep Contact Information : [phone] Want Family/Rep/Phys Notified of Admit : No Emergency Contact #1 : January Emergency Contact #1 Emergency Contact #1 Relationship : dtr Emergency Contact #2 : na Emergency Contact #2 Phone Number : na Emergency Contact #2 Relationship : na Information Obtained From : Patient Primary Language : Djiboutian Communication Barrier : None Objects to Sharing Info w Family : No Clinical Trials Participant *Q : None CTP, None *Q : Yes DELFINO MAYO RN - 08/31/2019 13:58 EST Anderson Scale Anderson Sensory Perception : No impairment Anderson Moisture : Rarely moist Anderson Activity : Walks occasionally Anderson Mobility : Slightly limited Anderson Nutrition : Adequate Anderson Friction and Shear : No apparent problem Anderson Score : 20 DELFINO MAYO RN - 08/31/2019 13:58 EST Sleep Apnea Risk Assmt BiPAP/CPAP Ordered for Home Use : Yes Hx of Obstructive Sleep Apnea Diagnosis : Yes BiPAP/CPAP Used at Home : Yes Age over 50 Years Old : Yes Gender Male : No DELFINO MAYO RN - 08/31/2019 13:58 EST documented in this encounter Plan of Treatment Not on file documented as of this encounter Visit Diagnoses Not on filedocumented in this encounter
--- OUTSIDE RECORDS SUMMARY | 2025-09-19 13:15 | XMS_ITS | Encounter Summary ---
Author Organization [employer] ([place], [place], [place], [place], [place]) Address [address] [place] [address] Care Team Providers Care Mixer Pigment Name Role Phone Unavailable Primary Care Provider Unavailabl e Encounter Details Date Type Department Care Team (Late st Contact Info) Description 09/07/2019 Transcribed Document [facility] [place] Family Medicine [address] [place] [address] ProviderAsh MD [address] [place] [address] Social History Tobacco Use Types [...] Cerner Conversion Note - Historical ProviderMD - 09/07/2019 9:47 AM OVEN DUMPER Advance Directive Entered On: 09/07/2019 11:28 EST Performed On: 09/07/2019 9:47 EST by MISHA DICKERSON Advance Directive Patient has Advance Directive *Q : Yes, Advance Directive on file Family/Rep Contact Information : DaughterAngela Advance Directive Type : Living will Advance Directive Date : 09/07/2019 EST Copy Advance Directive Verified/on Chart : Yes Date Hospital Obtained Advance Directive : 09/07/2019 EST Advance Directive Comment : Assisted patient in completing and notarizing living will MISHA DICKERSON - 09/07/2019 11:28 EST documented in this encounter Plan of Treatment Not on file documented as of this encounter Visit Diagnoses Not on filedocumented in this encounter
--- OUTSIDE RECORDS SUMMARY | 2025-09-19 13:15 | XMS_ITS | Encounter Summary ---
Author Organization [employer] ([place], [place], [place], [place], [place]) Address [address] [place] [address] Care Team Providers Care Head Of Cytogenetics Name Role Phone Unavailable Primary Care Provider Unavailabl e Encounter Details Date Type Department Care Team (Late st Contact Info) Description 08/31/2019 Transcribed Document [facility] [place] Family Medicine [facility] [place] [address] ProviderAsh MD [facility] [place] [address] Social History Tobacco Use Types Packs/Day Years Used Date Smoking Tobacco: Never Assessed Comments Unknown Sex and Gender Information Value Date Recorded Sex Assigned at Female 04/15/2022 6:39 PM CDT Legal Sex Female 6:49 PM CDT Gender Identity Female 04/15/2022 6:39 PM CDT Sexual Orientation Not on file documented as of this encounter Miscellaneous Notes * Cerner Conversion Note - Ash ProviderMD - 08/31/2019 9:10 AM STAFF RN [place] [address] RAYSA ZAMBRANO :1945 Visit Time:08/31/2019 Your Visit Summary Your Care Team Admitting Physician - SENDY QUINTANILLA MD-SNU Attending Physician - SENDY QUINTANILLA MD-SNU Primary Care Physician - JONO LINDER (REF)[facility] Referring Physician - SENDY QUINTANILLA MD-SNU Your Diagnosis Low back pain, Low back pain Discharge Vitals Temperature 36.9 ??C Blood Pressure 154/72 What to do next Follow-Up Appointments Follow Up with SENDY QUINTANILLA MD-SNU When Within As needed Comments for results Where: [address] [facility] [address] [place] [address]- Medications What How Much When Instructions Next Dose diazePAM (Valium) 5 Milligram(s) At Bedtime today esomeprazole (NexIUM) 40 Milligram(s) Oral Every Day 09/01 levothyroxine 112 Microgram(s) Every Day 09/01 losartan 100 Milligram(s) Oral Every Day 09/01 multivitamin (Vitamin B Complex oral capsule) 1 Capsule(s) Oral Every Day 09/01 nebivolol (Bystolic) 15 Milligram(s) Oral Every Day 09/01 omega-3 polyunsaturated fatty acids (Lovaza) 1,000 Milligram(s) Oral Two Times A Day per simvastatin (Zocor) 40 Milligram(s) Oral At Bedtime today Take your medications faithfully. Do NOT skip medication. Do NOT stop taking medications without the direction of a physician. Carry a list of your medications with you at all times, and take this medication list with you to your first follow up visit. Report any side effects. Avoid herbal remedies unless discussed with your physician. As part of your treatment plan, your physician may have prescribed a limited course of a controlled substance. This medication may be given to help people with moderate or severe pain or for other medical conditions, but there are risks involved with treatment. Common side effects may include nausea, constipation, drowsiness, sweating, itching, dry mouth, and rash. More serious side effects may include cognitive and motor impairment, like problems with thinking, concentrating, alertness, and movement (e.g. slowed reflexes), and driving and operating heavy machinery can be dangerous. It is important for you to talk to your physician if you have these side effects or questions. These controlled substances can produce physical dependence and be habit-forming if taken for an extended period of time, which means that the body has gotten used to them and may experience withdrawal symptoms if they are abruptly stopped. Withdrawal symptoms can include runny nose, sweating, goose bumps, diarrhea, abdominal cramping, rapid heartbeat, difficulty sleeping, and nervousness. Please dispose of unused and medications per your retail pharmacy guidance. Allergies codeine erythromycin (Gastrointestinal upset, Gastrointestinal upset) gabapentin (C/O: a rash, O/E - edema of legs, O/E - edema of feet, O/E - edema of feet~O/E - edema of legs~C/O: a rash) methylPREDNISolone (Tingling, Tachycardia [D], Tachycardia [D]~Tingling) predniSONE (trouble breathing) sulfamethoxazole-trimethoprim Immunizations This Visit No Immunizations Found Education Materials Myelogram, Care After Refer to this sheet in the next few weeks. These instructions provide you with information about caring for yourself after your procedure. Your health care provider may also give you more specific instructions. Your treatment has been planned according to current medical practices, but problems sometimes occur. Call your health care provider if you have any problems or questions after your procedure. What can I expect after the procedure? After the procedure, it is common to have: ??? Soreness at your injection site. ??? A mild headache. Follow these instructions at home: ??? Drink enough fluid to keep your urine clear or pale yellow. This will help flush out the dye (contrast material) from your spine. ??? Rest as told by your health care provider. Lie flat with your head slightly raised (elevated) to reduce the risk of headache. ??? Do not bend, lift, or do any strenuous activity for 24???48 hours or as told by your health care provider. ??? Take wtlg-dss-grbwyhg and prescription medicines only as told by your health care provider. ??? Take care of and remove your bandage (dressing) as told by your health care provider. ??? Bathe or shower as told by your health care provider. Contact a health care provider if: ??? You have a fever. ??? You have a headache that lasts longer than 24 hours. ??? You feel nauseous or vomit. ??? You have a stiff neck or numbness in your legs. ??? You are unable to urinate or have a bowel movement. ??? You develop a rash, itching, or sneezing. Get help right away if: ??? You have new symptoms or your symptoms get worse. ??? You have a seizure. ??? You have trouble breathing. This information is not intended to replace advice given to you by your health care provider. Make sure you discuss any questions you have with your health care provider. Document Released: 10/29/2016 Document Revised: 03/10/2017 Document Reviewed: 07/15/2016 [employer] Interactive Patient Education ?? 2019 [employer]. Emergency Awareness and Preventative Care STROKE is an EMERGENCY Every Minute Counts Act FAST and Check for these signs: FACE Does the face look uneven? ARM Does one arm drift down? SPEECH Does their speech sound strange? TIME Call at any sign of stroke Stroke Risk Factors Atrial Fibrillation (irregular heartbeat) Diabetes Family history of stroke Heart Disease Heavy alcohol use High Blood Pressure High Cholesterol Physical inactivity and obesity Smoking Cigarette Smoking The facts are clear, cigarette smoking will shorten your life. Smoking can cause many illnesses along the way. As a healthcare provider, we recommend that you stop smoking. Assistance with quitting is available by contacting 7-157-EZNBDSET CorporationNOW. This is a free resource providing counseling, support, and referral. Or you may contact your personal physician. [employer] Suicide Prevention Lifeline: The National Suicide Prevention Lifeline is a national network of local crisis centers that provides free and confidential emotional support to people in suicidal crisis or emotional distress 24 hours a day, 7 days a week. Don't Wait! Stop a Heart Attack Before it Starts What is a heart attack? A heart attack is damage or to a part of the heart from severely decreased or lack of blood flow to the heart. Over time, arteries can become narrow from the buildup of fat and cholesterol, which is called plaque. The plaque can rupture causing a blood clot to form. When the blood clot forms, the artery can become severely narrowed or completely blocked, causing a heart attack. Heart attack is the leading cause of in the [place]. 85% of muscle damage occurs within the first 2 hours. Delay in the recognition of heart attack symptoms increases the chances of . Know the early symptoms of a heart attack: Nausea Feeling of fullness in chest Jaw Pain Pain that travels down one or both arms Fatigue/being tired Anxiety Back Pain Chest pressure, squeezing, or discomfort Shortness of breath Sweating, or a cold sweat Feeling of impending doom There are unusual signs of a heart attack, too! Women, the elderly, and diabetics may present with atypical symptoms: Fainting/dizziness Weakness Confusion Risk Factors for a Heart Attack Some heart disease risk factors, such as age and family history, cannot be changed. Others, like smoking and lack of exercise, can be changed. Smoking High Cholesterol High Blood Pressure Family History Obesity Age Gender (Males are at higher risk) Lack of Exercise Diabetes Diet Stress Excessive Alcohol Intake If you or someone you know is experiencing the signs and symptoms of a heart attack, DON???T DELAY. Call immediately and seek help. If someone collapses, perform CPR! Do not attempt to drive if you are having symptoms of heart attack. Hands-Only CPR Why Hands-Only CPR? Hands-Only CPR has been shown to be as effective as conventional CPR for cardiac arrests that occur outside of a hospital. Survival depends on immediately receiving CPR from someone nearby. How do you perform Hands-Only CPR? There are two easy steps: Call if you see a teen or adult collapse Push hard and fast in the center of the chest at a beat of 100 beats per minute. Save a life! 4 WAYS TO GET AHEAD OF SEPSIS SEPSIS is a MEDICAL EMERGENCY. Time matters! Infections put you and your family at risk for a life-threatening condition called sepsis. Sepsis is the body's extreme response to an infection. It is life-threatening, and without timely treatment, sepsis can rapidly lead to tissue damage, organ failure, and . Sepsis happens when an infection you already have-in your skin, lungs, urinary tract or somewhere else-triggers a chain reaction throughout your body. 1 PREVENT INFECTIONS Take good care of chronic conditions. Talk to your doctor about getting the recommended vaccines. 2 PRACTICE GOOD HYGIENE Wash your hands frequently. Keep cuts or open sores clean and covered until they are healed. 3 KNOW THE SYMPTOMS Confusion or disorientation Shortness of breath High heart rate Fever, shivering, or feeling very cold Extreme pain or discomfort Clammy or sweaty skin 4 ACT FAST Get medical care IMMEDIATELY if you suspect sepsis or if you have an infection that is not getting better or is getting worse. To learn more about sepsis and how to prevent infections, visit www.cdc.gov/sepsis. Test Results Laboratory or Other Results This Visit (last charted value for your 08/31/2019 visit) No Laboratory or Other Results This Visit Patient Name:RAYSA ZAMBRANOY I have received and understand this information and was given the opportunity to ask questions. Patient/Third Loader Name: Patient/Third Loader Signature: Relationship to Patient: Clinician/Hospital Third Loader Signature: Date: documented in this encounter Plan of Treatment Not on file documented as of this encounter Visit Diagnoses Not on filedocumented in this encounter
--- OUTSIDE RECORDS SUMMARY | 2025-09-19 13:16 | XMS_ITS | Encounter Summary ---
Author Organization [employer] ([place], [place], [place], [place], [place]) Address [address] [place] [address] Care Team Providers Care Supervisor Enrobing Name Role Phone Unavailable Primary Care Provider Unavailabl e Encounter Details Date Type Department Care Team (Late st Contact Info) Description 09/08/2019 Transcribed Document [facility] [place] [facility] [place] [address] ProviderAsh MD [facility] [place] [address] Social History Tobacco Use Types [...] Cerner Conversion Note - Ash ProviderMD - 09/08/2019 11:40 AM MATERIALS RECYCLER On Going Discharge Planning Entered On: 09/08/2019 11:40 EST Performed On: 09/08/2019 11:40 EST by ERON CABRAL, RN-Pressure SupervisorLinoleum Layer Helper Progress Note Discharge Arrangements : Patient Post-Acute Information Patient Name: RAYSA ZAMBRANO Gender: Female : [birth year] Age: 74 Years No Post-Acute Placement(s) Listed No Post-Acute Service(s) Listed No [place] Referral(s) Listed Barriers to Discharge Identified : None identified Barriers to Discharge Unresolved : All resolved Designation of Choice Signed : No Patient Offered Choice/Affiliations Explained : No Were Referrals Sent to Post Acute Providers : No Does the Patient have a Floor to SNF Benefit? : No Is the Patient Meeting Medical Necessity : No Did you Document Avoidable Days? : No Physician Agreeable to Move Forward with D/C Plan? : Yes Did you Attend Multidisciplinary Rounds? : No ERON CABRAL, RN-Pressure Supervisor - 09/08/2019 11:40 EST Electronically signed by Sharita [facility] Conversion Lead Miner Blasting Cerner at 02/04/2023 2:20 PM CDT documented in this encounter Plan of Treatment Not on file documented as of this encounter Visit Diagnoses Not on filedocumented in this encounter
--- OUTSIDE RECORDS SUMMARY | 2025-09-19 13:16 | XMS_ITS | Encounter Summary ---
Author Organization [employer] ([place], [place], [place], [place], [place]) Address [address] [place] [address] Care Team Providers Care Custom Seamstress Name Role Phone Unavailable Primary Care Provider Unavailabl e Encounter Details Date Type Department Care Team (Late st Contact Info) Description 09/08/2019 Transcribed Document [facility] [place] Family Medicine [facility] [place] [address] ProviderAsh MD [facility] [place] [address] Social History Tobacco Use Types [...] Cerner Conversion Note - Historical ProviderMD - 09/08/2019 11:38 AM DISASTER RESPONSE DIRECTOR Initial Discharge Planning Entered On: 09/08/2019 11:39 EST Performed On: 09/08/2019 11:38 EST by ERON CABRAL, RN-Wax Pot Tender Initial Assessment I Previously Documented Living Environment : No qualifying data available. Living Situation : Home Patient Lives With : Alone Is the Patient a Caregiver at Home? : No Emergency Contact #1 : January Emergency Contact #1 Emergency Contact #1 Relationship : Daughter Does Patient have PCP Listed? : Yes Legal Guardian : No Date Hospital Obtained Advance Directive : 09/07/2019 EST Is Guardianship Needed : No ERON CABRAL RN-Wax Pot Tender - 09/08/2019 11:38 EST Initial Assessment II Sensory and Motor Deficits : None Current Home Treatments and Equipment : CPAP Does the Patient have a Floor to SNF Benefit? : No ERON CABRAL RN-Wax Pot Tender - 09/08/2019 11:38 EST Discharge Needs I Anticipated Discharge Date : 09/08/2019 EST Anticipated Discharge To, CM : Home independently Current Home Treatment/Equipment : Current Home Treatment/Equipment No qualifying data available. Post Acute/Home Treatments : None Documentation Status Complete : Yes ERON CABRAL RN-Wax Pot Tender - 09/08/2019 11:38 EST Discharge Needs II Professional Skilled Services : Professional Skilled Services No qualifying data available. Needs Assistance with Transportation : No ERON CABRAL RN-Wax Pot Tender - 09/08/2019 11:38 EST Narrative Note Narrative Note : No anticipated discharge needs noted. ERON CABRAL RN-Wax Pot Tender - 09/08/2019 11:38 EST Electronically signed by Ameya Sheriff Conversion Circular Knife Cutter Machine Cerner at 02/04/2023 2:00 PM CDT documented in this encounter Plan of Treatment Not on file documented as of this encounter Visit Diagnoses Not on filedocumented in this encounter
--- OUTSIDE RECORDS SUMMARY | 2025-09-19 13:16 | XMS_ITS | Encounter Summary ---
Author Organization [employer] ([place], [place], [place], [place], [place]) Address [address] [place] [address] Care Team Providers Care Assistant Project Engineer Name Role Phone Unavailable Primary Care Provider Unavailabl e Encounter Details Date Type Department Care Team (Late st Contact Info) Description 08/31/2019 Transcribed Document [facility] Family Medicine [facility] [place] [address] ProviderAsh [place] [address] Social History Tobacco Use Types [...] Conversion Note - Ash ProviderMD - 08/31/2019 9:25 AM RN ANGIOGRAPHY Patient: RAYSA ZAMBRANO Age: 74 years Sex: Female : 1945 Associated Diagnoses: None Author: ROSE CM PA-C Fluoroscopically guided lumbar puncture was perfomed at the L3-4 level and 12 mls of contrast injected. The patient tolerated the procedure well. Thoracic and lumbar myelogram was then performed. CT and report to follow. documented in this encounter Plan of Treatment Not on file documented as of this encounter Visit Diagnoses Not on filedocumented in this encounter
--- OUTSIDE RECORDS SUMMARY | 2025-09-19 13:16 | XMS_ITS | Encounter Summary ---
Author Organization [employer] ([place], [place], [place], [place], [place]) Address [address] [place] [address] Care Team Providers Care Abrasive Coating Machine Operator Name Role Phone Unavailable Primary Care Provider Unavailabl e Encounter Details Date Type Department Care Team (Late st Contact Info) Description 09/08/2019 Transcribed Document [facility] [place] Family Medicine [facility] [place] [address] ProviderAsh MD [facility] [place] [address] Social History Tobacco Use Types [...] Conversion Note - Historical ProviderMD - 09/08/2019 2:36 PM TOWEL INSPECTOR Nursing Discharge Summary Entered On: 09/08/2019 14:37 EST Performed On: 09/08/2019 14:36 EST by Kami Concepcion RN Discharge Documentation Discharge Date/Time : 09/08/2019 14:30 EST Patient Disposition, General : Discharge Discharge To : Home with ambulatory/outpatient follow-up Mode Of Departure, General Discharge : Private vehicle Accompanied By, Discharge : Daughter IV Discontinued : Yes Prescriptions Given to Patient : Yes Discharge Instructions Reviewed With, Opportunity For Questions Given : Patient, Daughter Patient Education Completed : Yes Number of Prescriptions Given : 1 Teaching Method : Explanation Teaching Evaluation : Verbalizes understanding Kami Concepcion RN - 09/08/2019 14:36 EST Electronically signed by Sharita [facility] Conversion Paint Roller Assembler Cerner at 02/04/2023 2:19 PM CDT documented in this encounter Plan of Treatment Not on file documented as of this encounter Visit Diagnoses Not on filedocumented in this encounter
--- OUTSIDE RECORDS SUMMARY | 2025-09-19 13:16 | XMS_ITS | Encounter Summary ---
Author Organization [employer] ([place], [place], [place], [place], [place]) Address [address] [place] [address] Care Team Providers Care Chicken Raiser Name Role Phone Unavailable Primary Care Provider Unavailabl e Encounter Details Date Type Department Care Team (Late st Contact Info) Description 09/08/2019 Transcribed Document [facility] [place] [facility] [place] [address] ProviderAsh MD [facility] [place] [address] Social History Tobacco Use Types [...] Conversion Note - Historical ProviderMD - 09/08/2019 7:49 AM COSMETICS DEMONSTRATOR UM Authorization Entered On: 09/08/2019 7:50 EST Performed On: 09/08/2019 7:49 EST by VIGNESH DUDLEY RN-Utilization Review Primary Insurance Authorization Authorization and Policy Numbers : Insurance 1 Health Plan: MEDICARE Policy Number: [id number] Authorization Number: Insurance 2 Health Plan: FOR [employer] Policy Number: [id number] Authorization Number: Insurance Primary Name : MEDICARE Policy Number: [id number] Authorized Service Begin Date-Primary : 09/07/2019 EST Historical Authorization Comments-Primary : No Authorization Comments Found VIGNESH DUDLEY RN-Utilization Review - 09/08/2019 7:49 EST Electronically signed by Ameya Sheriff Conversion Oracle Applications Developer Cerner at 02/04/2023 1:55 PM CDT documented in this encounter Plan of Treatment Not on file documented as of this encounter Visit Diagnoses Not on filedocumented in this encounter
--- OUTSIDE RECORDS SUMMARY | 2025-09-19 13:16 | XMS_ITS | Encounter Summary ---
Author Organization [employer] ([place], [place], [place], [place], [place]) Address [address] [place] [address] Care Team Providers Care Datastage Architect Name Role Phone Unavailable Primary Care Provider Unavailabl e Encounter Details Date Type Department Care Team (Late st Contact Info) Description 09/08/2019 Transcribed Document [facility] Family Medicine Formerly [facility] [place] [address] ProviderAsh MD [facility] [place] [address] Social History Tobacco Use Types [...] Conversion Note - Ash ProviderMD - 09/08/2019 2:04 PM 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 [facility] [address] RAYSA ZAMBRANO :1945 Visit Time:09/07/2019 Your Visit Summary Your Care Team Admitting Physician - SENDY QUINTANILLA MD-SNU Attending Physician - SENDY QUINTANILLA MD-SNU Primary Care Physician - JONO LINDER (REF)MD-[facility] Referring Physician - BENJAMÍN, MUSHTAQ Discharge Vitals Temperature 37.8 ??C Heart Rate (Monitored) 88 Respiratory Rate 18 Blood Pressure 137/51 What to do next Instructions From Your Care Team Diet after Discharge: Resume usual diet as tolerated, _, _ Activity after Discharge: As tolerated, _, _ Lifting Restrictions: No heavy lifting over 10 pounds Weight Bearing: Full weight bearing Driving after Discharge: Do not drive Showering/Bathing: May shower, _ Notify Provider of: notify MD of any swelling, redness, or excessive drainage Wound/Incision Care after Discharge: Keep operative site/wound site clean and dry, _ Medical Equipment for Home Use: Home Health Services: Community Services: Follow-Up Appointments Follow Up with SENDY QUINTANILLA MD-SNU When 10/16/2019 01:15 PM EST Where: [address] [place] [address] [id number]- Follow Up with SENDY QUINTANILLA When 09/24/2019 11:00 AM EST Where: [address] [facility] [address] [place] [id number]- Business (1) Medications What How Much When Instructions Next Dose diazePAM (Valium) 5 Milligram(s) At Bedtime at bedtime esomeprazole (NexIUM) 40 Milligram(s) Oral Every Day 11-24 levothyroxine 112 Microgram(s) Oral Every Day 11-24 losartan 100 Milligram(s) Oral Every Day 11-24 multivitamin (Vitamin B Complex oral capsule) 1 Capsule(s) Oral Every Day 11-24 nebivolol (Bystolic) 15 Milligram(s) Oral Every Day 11-24 omega-3 polyunsaturated fatty acids (Lovaza) 1,000 Milligram(s) Oral Two Times A Day tonight simvastatin (Zocor) 40 Milligram(s) Oral At Bedtime tonight Take your medications faithfully. Do NOT skip [...] per your retail pharmacy guidance. Allergies codeine (Sweats, Hypotension) erythromycin (Gastrointestinal upset, Gastrointestinal upset) gabapentin (C/O: a rash, O/E - edema of legs, O/E - edema of feet, O/E - edema of feet~O/E - edema of legs~C/O: a rash) methylPREDNISolone (Tingling, Tachycardia [D], Tachycardia [D]~Tingling) predniSONE (trouble breathing) sulfamethoxazole-trimethoprim (Unknown) Immunizations This Visit No Immunizations Found Education Materials Fall Prevention in the Home Introduction Falls can cause injuries. They can happen to people of all ages. There are many things you can do to make your home safe and to help prevent falls. What can I do on the outside of my home? Regularly fix the edges of walkways and driveways and fix any cracks. ??? Remove anything that might make you trip as you walk through a door, such as a raised step or threshold. ??? Trim any bushes or trees on the path to your home. ??? Use bright outdoor lighting. ??? Clear any walking paths of anything that might make someone trip, such as rocks or tools. ??? Regularly check to see if handrails are loose or broken. Make sure that both sides of any steps have handrails. ??? Any raised decks and porches should have guardrails on the edges. ??? Have any leaves, snow, or ice cleared regularly. ??? Use sand or salt on walking paths during winter. ??? Clean up any spills in your garage right away. This includes oil or grease spills. What can I do in the bathroom? Use night lights. ??? Install grab bars by the toilet and in the tub and shower. Do not use towel bars as grab bars. ??? Use non-skid mats or decals in the tub or shower. ??? If you need to sit down in the shower, use a plastic, non-slip stool. ??? Keep the floor dry. Clean up any water that spills on the floor as soon as it happens. ??? Remove soap buildup in the tub or shower regularly. ??? Attach bath mats securely with double-sided non-slip rug tape. ??? Do nothave throw rugs and other things on the floor that can make you trip. What can I do in the bedroom? Use night lights. ??? Make sure that you have a light by your bed that is easy to reach. ??? Do notuse any sheets or blankets that are too big for your bed. They should not hang down onto the floor. ??? Have a firm chair that has side arms. You can use this for support while you get dressed. ??? Do nothave throw rugs and other things on the floor that can make you trip. What can I do in the kitchen? Clean up any spills right away. ??? Avoid walking on wet floors. ??? Keep items that you use a lot in gjco-fv-ppsti places. ??? If you need to reach something above you, use a strong step stool that has a grab bar. ??? Keep electrical cords out of the way. ??? Do notuse floor armenian or wax that makes floors slippery. If you must use wax, use non-skid floor wax. ??? Do nothave throw rugs and other things on the floor that can make you trip. What can I do with my stairs? Do notleave any items on the stairs. ??? Make sure that there are handrails on both sides of the stairs and use them. Fix handrails that are broken or loose. Make sure that handrails are as long as the stairways. ??? Check any carpeting to make sure that it is firmly attached to the stairs. Fix any carpet that is loose or worn. ??? Avoid having throw rugs at the top or bottom of the stairs. If you do have throw rugs, attach them to the floor with carpet tape. ??? Make sure that you have a light switch at the top of the stairs and the bottom of the stairs. If you do not have them, ask someone to add them for you. What else can I do to help prevent falls? Wear shoes that: ? Do nothave high heels. ? Have rubber bottoms. ? Are comfortable and fit you well. ? Are closed at the toe. Do not wear sandals. ??? If you use a stepladder: ? Make sure that it is fully opened. Do not climb a closed stepladder. ? Make sure that both sides of the stepladder are locked into place. ? Ask someone to hold it for you, if possible. ??? Clearly usdhakar and make sure that you can see: ? Any grab bars or handrails. ? First and last steps. ? Where the edge of each step is. ??? Use tools that help you move around (mobility aids) if they are needed. These include:? Canes. ? Walkers. ? Scooters. ? Crutches. ??? Turn on the lights when you go into a dark area. Replace any light bulbs as soon as they burn out. ??? Set up your furniture so you have a clear path. Avoid moving your furniture around. ??? If any of your floors are uneven, fix them. ??? If there are any pets around you, be aware of where they are. ??? Review your medicines with your doctor. Some medicines can make you feel dizzy. This can increase your chance of falling. Ask your doctor what other things that you can do to help prevent falls. This information is not intended to replace advice given to you by your health care provider. Make sure you discuss any questions you have with your health care provider. Document Released: 07/30/2010 Document Revised: 03/10/2017 Document Reviewed: 11/07/2015 ?? 2017 Elsevier Wound Infection A wound infection happens when germs start to grow in the wound. Germs that cause wound infections are most often bacteria. Other types of infections can occur as well. In some cases, infection can cause the wound to break open. Wound infections need treatment. If a wound infection is not treated, complications can happen. Follow these instructions at home: Medicines ??? Take or apply tmbn-hbx-[id number] and prescription medicines only as told by your doctor. ??? If you were prescribed antibiotic medicine, take or apply it as told by your doctor. Do not stop using the antibiotic even if your condition improves. Wound care ??? Clean the wound each day or as told by your doctor. ? Wash the wound with mild soap and water. ? Rinse the wound with water to remove all soap. ? Pat the wound dry with a clean towel. Do not rub it. ??? Follow instructions from your doctor about how to take care of your wound. Make sure you: ? Wash your hands with soap and water before you change your bandage (dressing). If you cannot use soap and water, use hand nocturnist physician. ? Change your bandage as told by your doctor. ? Leave stitches (sutures), skin glue, or skin tape (adhesive) strips in place if your wound has been closed. They may need to stay in place for 2 weeks or longer. If tape strips get loose and curl up, you may trim the loose edges. Do not remove tape strips completely unless your doctor says it is okay. Some wounds are left open to heal on their own. ??? Check your wound every day for signs of infection. Watch for: ? More redness, swelling, or pain. ? More fluid or blood. ? Warmth. ? Pus or a bad smell. General instructions ??? Keep the bandage dry until your doctor says it can be removed. ??? Do not take baths, swim, use a hot tub, or do anything that would put your wound underwater until your doctor says it is okay. ??? Raise (elevate) the injured area above the level of your heart while you are sitting or lying down. ??? Do not scratch or pick at the wound. ??? Keep all follow-up visits as told by your doctor. This is important. Contact a doctor if: ??? Medicine does not help your pain. ??? You have more redness, swelling, or pain in the area of your wound. ??? You have more fluid or blood coming from your wound. ??? Your wound feels warm to the touch. ??? You have pus coming from your wound. ??? You continue to notice a bad smell coming from your wound or your bandage. ??? Your wound that was closed breaks open. Get help right away if: ??? You have a red streak going away from your wound. ??? You have a fever. This information is not intended to replace advice given to you by your health care provider. Make sure you discuss any questions you have with your health care provider. Document Released: 07/12/2009 Document Revised: 03/10/2017 Document Reviewed: 03/22/2016 [employer] Patient Education ?? 2019 [employer]. acetaminophen and oxycodone (a SEET a MIN oh fen and OX i KOE done) Endocet 10/325, Endocet 2.5/325, Endocet 5/325, Endocet 7.5/325, Nalocet, Percocet 10/325, Percocet 2.5/325, Percocet 5/325, Percocet 7.5/325, Primalev, Primlev, Roxicet, Xartemis XR What is the most important information I should know about acetaminophen and oxycodone? MISUSE OF OPIOID MEDICINE CAN CAUSE ADDICTION, OVERDOSE, OR . Keep the medication in a place where others cannot get to it. An overdose of acetaminophen can damage your liver or cause . Call your doctor at once if you have pain in your upper stomach, loss of appetite, dark urine, or jaundice (yellowing of your skin or eyes). Taking opioid medicine during may cause life-threatening withdrawal symptoms in the . Fatal side effects can occur if you use opioid medicine with alcohol, or with other drugs that cause drowsiness or slow your breathing. Stop taking this medicine and call your doctor right away if you have skin redness or a rash that spreads and causes blistering and peeling. What is acetaminophen and oxycodone? Oxycodone is an opioid pain medication, sometimes called a narcotic. Acetaminophen is a less potent pain reliever that increases the effects of oxycodone. Acetaminophen and oxycodone is a combination medicine used to relieve moderate to severe pain. Acetaminophen and oxycodone may also be used for purposes not listed in this medication guide. What should I discuss with my healthcare provider before taking acetaminophen and oxycodone? You should not use this medicine if you are allergic to acetaminophen or oxycodone, or if you have: ?? severe asthma or breathing problems; or ?? a blockage in your stomach or intestines. Tell your doctor if you have ever had: ?? liver disease; ?? a drug or alcohol addiction; ?? kidney disease; ?? a head injury or seizures; ?? urination problems; or ?? problems with your thyroid, pancreas, or gallbladder. If you use opioid medicine while you are , your baby could become dependent on the drug. This can cause life-threatening withdrawal symptoms in the baby after it is born. Babies born dependent on opioids may need medical treatment for several weeks. Do not breast-feed. This medicine can pass into breast milk and cause drowsiness, breathing problems, or in a nursing baby. How should I take acetaminophen and oxycodone? Follow all directions on your prescription label. Never take this medicine in larger amounts, or for longer than prescribed. An overdose can damage your liver or cause . Tell your doctor if the medicine seems to stop working as well in relieving your pain. Never share this medicine with another person, especially someone with a history of drug abuse or addiction. MISUSE CAN CAUSE ADDICTION, OVERDOSE, OR . Keep the medicine in a place where others cannot get to it. Selling or giving away acetaminophen and oxycodone is against the law. Measure liquid medicine carefully. Use the dosing syringe provided, or use a medicine dose-measuring device (not a kitchen spoon). If you need surgery or medical tests, tell the doctor ahead of time that you are using this medicine. You should not stop using this medicine suddenly. Follow your doctor's instructions about tapering your dose. Store at room temperature away from moisture and heat. Keep track of your medicine. You should be aware if anyone is using it improperly or without a prescription. Do not keep leftover opioid medication. Just one dose can cause in someone using this medicine accidentally or improperly. Ask your pharmacist where to locate a drug take-back disposal program. If there is no take-back program, flush the unused medicine down the toilet. What happens if I miss a dose? Since this medicine is used for pain, you are not likely to miss a dose. Skip any missed dose if it is almost time for your next dose. Do not use two doses at one time. What happens if I overdose? Seek emergency medical attention or call the Poison Help line at . An overdose of acetaminophen and oxycodone can be fatal. The first signs of an acetaminophen overdose include loss of appetite, nausea, vomiting, stomach pain, sweating, and confusion or weakness. Later symptoms may include pain in your upper stomach, dark urine, and yellowing of your skin or the whites of your eyes. Overdose can also cause severe muscle weakness, pinpoint pupils, very slow breathing, extreme drowsiness, or coma. What should I avoid while taking acetaminophen and oxycodone? Avoid driving or operating machinery until you know how this medicine will affect you. Dizziness or drowsiness can cause falls, accidents, or severe injuries. Do not drink alcohol. Dangerous side effects or could occur. Ask a doctor or pharmacist before using any other medicine that may contain acetaminophen (sometimes abbreviated as APAP). Taking certain medications together can lead to a fatal overdose. What are the possible side effects of acetaminophen and oxycodone? Get emergency medical help if you have signs of an allergic reaction: hives; difficulty breathing; swelling of your face, lips, tongue, or throat. Opioid medicine can slow or stop your breathing, and may occur. A person caring for you should seek emergency medical attention if you have slow breathing with long pauses, blue colored lips, or if you are hard to wake up. In rare cases, acetaminophen may cause a severe skin reaction that can be fatal. This could occur even if you have taken acetaminophen in the past and had no reaction. Stop taking this medicine and call your doctor right away if you have skin redness or a rash that spreads and causes blistering and peeling. Call your doctor at once if you have: ?? noisy breathing, sighing, shallow breathing; ?? a light-headed feeling, like you might pass out; ?? weakness, tiredness, fever, unusual bruising or bleeding; ?? confusion, unusual thoughts or behavior; ?? problems with urination; ?? liver problems--nausea, upper stomach pain, tiredness, loss of appetite, dark urine, ritchie-colored stools, jaundice (yellowing of the skin or eyes); or ?? low cortisol levels-- nausea, vomiting, loss of appetite, dizziness, worsening tiredness or weakness. Seek medical attention right away if you have symptoms of serotonin syndrome, such as: agitation, hallucinations, fever, sweating, shivering, fast heart rate, muscle stiffness, twitching, loss of coordination, nausea, vomiting, or diarrhea. Serious side effects may be more likely in older adults and those who are overweight, malnourished, or debilitated. Long-term use of opioid medication may affect fertility (ability to have children) in men or women. It is not known whether opioid effects on fertility are permanent. Common side effects include: ?? dizziness, drowsiness, feeling tired; ?? feelings of extreme happiness or sadness; ?? nausea, vomiting, stomach pain; ?? constipation; or ?? headache. This is not a complete list of side effects and others may occur. Call your doctor for medical advice about side effects. You may report side effects to FDA at 0-302-DLG-5419. What other drugs will affect acetaminophen and oxycodone? You may have breathing problems or withdrawal symptoms if you start or stop taking certain other medicines. Tell your doctor if you also use an antibiotic, antifungal medication, heart or blood pressure medication, seizure medication, or medicine to treat HIV or hepatitis C. Opioid medication can interact with many other drugs and cause dangerous side effects or . Be sure your doctor knows if you also use: ?? cold or allergy medicines, bronchodilator asthma/COPD medication, or a diuretic ('water pill'); ?? medicines for motion sickness, irritable bowel syndrome, or overactive bladder; ?? other narcotic medications--opioid pain medicine or prescription cough medicine; ?? a sedative like Valium--diazepam, alprazolam, lorazepam, Xanax, Klonopin, Versed, and others; ?? drugs that make you sleepy or slow your breathing--a sleeping pill, muscle relaxer, medicine to treat mood disorders or mental illness; ?? drugs that affect serotonin levels in your body--a stimulant, or medicine for depression, Parkinson's disease, migraine headaches, serious infections, or nausea and vomiting. This list is not complete. Other drugs may affect acetaminophen and oxycodone, including prescription and eefg-mbx-slxbcyi medicines, vitamins, and herbal products. Not all possible interactions are listed here. Where can I get more information? Your doctor or pharmacist can provide more information about acetaminophen and oxycodone. Remember, keep this and all other medicines out of the reach of children, never share your medicines with others, and use this medication only for the indication prescribed. Every effort has been made to ensure that the information provided by [employer]. [employer]') is accurate, up-to-date, and complete, but no guarantee is made to that effect. Drug information contained herein may be time sensitive. [employer] information has been compiled for use by healthcare practitioners and consumers in the [place] and therefore [employer] does not warrant that uses outside of the [place] are appropriate, unless specifically indicated otherwise. [employer] drug information does not endorse drugs, diagnose patients or recommend therapy. [employer] drug information is an informational resource designed to assist licensed healthcare practitioners in caring for their patients and/or to serve consumers viewing this service as a supplement to, and not a substitute for, the expertise, skill, knowledge and judgment of healthcare practitioners. The absence of a warning for a given drug or drug combination in no way should be construed to indicate that the drug or drug combination is safe, effective or appropriate for any given patient. [employer] does not assume any responsibility for any aspect of healthcare administered with the aid of information [employer] provides. The information contained herein is not intended to cover all possible uses, directions, precautions, warnings, drug interactions, allergic reactions, or adverse effects. If you have questions about the drugs you are taking, check with your doctor, nurse or pharmacist. Copyright 2610-0711 [employer]. Version: 18.02. Revision Date: 09/13/2018. Emergency Awareness and Preventative Care STROKE is [...] Assistance with quitting is available by contacting 3-288-FXPZ-NOW. This is a free resource providing counseling, support, and referral. Or you may contact your personal physician. National Suicide Prevention Lifeline: The National Suicide Prevention [...] This Visit (last charted value for your 09/07/2019 visit) Hematology 08/31/2019 2:35 PM WBC: 9.0 K/uL -- Normal range between ( 4.5 and 10.5 ) RBC: 4.55 Million/uL -- Normal range between ( 3.93 and 5.22 ) Hct: 40.6 % -- Normal range between ( 34.1 and 44.9 ) Hgb: 13.2 g/dL -- Normal range between ( 11.2 and 15.7 ) Platelet Count: 273 K/uL -- Normal range between ( 163 and 369 ) MCH: 29.0 pg -- Normal range between ( 25.6 and 32.2 ) MCHC: 32.5 Gram/dL -- Normal range between ( 32.2 and 36.5 ) MCV: 89.2 fL -- Normal range between ( 79.0 and 94.8 ) Slide Review: No RDW: 12.5 % -- Normal range between ( 11.7 and 14.9 ) MPV: 11.1 fL -- Normal range between ( 9.4 and 12.4 ) Urinalysis 08/31/2019 2:58 PM Urine Nitrite: Negative Urine Leukocyte Esterase: Moderate Urine Appearance: Clear Urine Glucose Dipstick: Negative Urine Blood Dipstick: Negative Urine Type: U CleanCatch Urine Urobilinogen Dipstick: 0.2 EU/dL Urine Protein Dipstick: Negative Urine Color: Yellow Urine Ketones Dipstick: Negative Urine pH Dipstick: 6.0 -- Normal range between ( 6.0 and 8.0 ) Urine Bilirubin Dipstick: Negative Urine Specific [place]: 1.016 -- Normal range between ( 1.005 and 1.030 ) General Chemistry 08/31/2019 2:35 PM Creatinine Level: 1.30 mg/dL -- Normal range between ( 0.55 and 1.02 ) Sodium Level: 141 mmol/L -- Normal range between ( 136 and 146 ) Potassium Level: 3.5 mmol/L -- Normal range between ( 3.5 and 5.1 ) Chloride Level: 107 mmol/L -- Normal range between ( 102 and 112 ) Carbon Dioxide Level: 27 mmol/L -- Normal range between ( 21 and 32 ) Anion Gap: 10 -- Normal range between ( 9 and 20 ) Bun/Creatinine: 16.9 -- Normal range between ( 8.0 and 20.0 ) Calcium Level: 8.8 mg/dL -- Normal range between ( 8.4 and 10.1 ) eGFR : 48 mL/min/1.73m2 eGFR NonAfrican: 40 mL/min/1.73m2 Glucose Level: 118 mg/dL -- Normal range between ( 74 and 106 ) Blood Urea Nitrogen: 22 mg/dL -- Normal range between ( 7 and 22 ) Diagnostic Radiology 09/07/2019 1:00 PM CR Fluoro in OR: CR Fluoro in OR Patient Name:RAYSA ZAMBRANO I have received and understand this information and was given the opportunity to ask questions. Patient/Employment Supervisor Name: Patient/Employment Supervisor Signature: Relationship to Patient: Clinician/Hospital Employment Supervisor Signature: Date: documented in this encounter Plan of Treatment Not on file documented as of this encounter Visit Diagnoses Not on filedocumented in this encounter
--- OUTSIDE RECORDS SUMMARY | 2025-09-19 13:16 | XMS_ITS | Encounter Summary ---
Author Organization [employer] ([place], [place], [place], [place], [place]) Address [address] [place] [address] Care Team Providers Care Director Talent Name Role Phone Unavailable Primary Care Provider Unavailabl e Encounter Details Date Type Department Care Team (Late st Contact Info) Description 09/08/2019 Transcribed Document [facility] Neurology - [address] [facility] [address] [place] [address] Sendy Quintanilla Jr., MD [address] [facility] [address] [place] [address] Social History Tobacco Use Types Packs/Day Years Used Date Smoking Tobacco: Never Assessed Comments Unknown Sex and Gender Information Value Date Recorded Sex Assigned at Female 04/15/2022 6:39 PM CDT Legal Sex Female 6:49 PM CDT Gender Identity Female 04/15/2022 6:39 PM CDT Sexual Orientation Not on file documented as of this encounter Miscellaneous Notes * Cerner Conversion Note - Sendy Quintanilla Jr., MD - 09/08/2019 11:49 AM EST Patient: RAYSA ZAMBRANO Age: 74 years Sex: Female : 1945 Associated Diagnoses: None Author: SENDY QUINTANILLA MD-SNU af vss 5/5 c/d/i looks great feels well wantst o go home getting good bilateral coverage from stim dc home documented in this encounter Plan of Treatment Not on file documented as of this encounter Visit Diagnoses Not on filedocumented in this encounter
--- OUTSIDE RECORDS SUMMARY | 2025-09-19 13:16 | XMS_ITS | Encounter Summary ---
Author Organization [employer] ([place], [place], [place], [place], [place]) Address [address] [place] [address] Care Team Providers Care Home Mortgage Disclosure Act Specialist Name Role Phone Unavailable Primary Care Provider Unavailabl e Encounter Details Date Type Department Care Team (Late st Contact Info) Description 09/08/2019 Transcribed Document [facility] [place] [facility] [place] [address] ProviderAsh MD [facility] [place] [address] Social History Tobacco Use Types [...] - Ash ProviderMD - 09/08/2019 11:40 AM 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 Final Discharge Planning Entered On: 09/08/2019 11:41 EST Performed On: 09/08/2019 11:40 EST by ERON CABRAL, RN-Gold Beater Final Discharge Planning Discharge Arrangements : Patient Post-Acute Information Patient Name: RAYSA ZAMBRANO Gender: Female : [birth year] Age: 74 Years No Post-Acute Placement(s) Listed No Post-Acute Service(s) Listed No Curaspan Referral(s) Listed Patient Offered Choice/Affiliations Explained : No Designation of Choice Signed : No Transportation Needs : Car Discharge Transportation Arrangement Cmt : family Follow Up Appointment Scheduled : No Is Patient High/Moderate Readmission Risk? : No Patient/Family Notified of Plan : Yes Patient/Family Notified : patient Is Patient Ready for Discharge? : Yes Physician Notified Patient is Ready for Discharge? : Yes Discharge To Care Management : Home/Residential/Alf or Self Care -01 ERON CABRAL, RN-Gold Beater - 09/08/2019 11:40 EST Final Narrative Note Final Narrative Note : Pt to discharge to home. No discharge needs noted. ERON CABRAL RN-Gold Beater - 09/08/2019 11:40 EST Electronically signed by [facility] Conversion Dry Cans Back Tender Cerner at 02/04/2023 2:21 PM CDT documented in this encounter Plan of Treatment Not on file documented as of this encounter Visit Diagnoses Not on filedocumented in this encounter
--- OUTSIDE RECORDS SUMMARY | 2025-09-19 13:16 | XMS_ITS | Encounter Summary ---
Author Organization [employer] ([place], [place], [place], [place], [place]) Address [address] [place] [address] Care Team Providers Care Die Finisher Name Role Phone Unavailable Primary Care Provider Unavailabl e Encounter Details Date Type Department Care Team (Late st Contact Info) Description 09/07/2019 Transcribed Document [facility] [place] [facility] [place] [address] ProviderAsh MD [facility] [place] [address] Social History Tobacco Use Types [...] Conversion Note - Historical ProviderMD - 09/07/2019 1:07 PM DETENTION OFFICER Pain Assessment Entered On: 09/08/2019 13:28 EST Performed On: 09/08/2019 8:52 EST by Kami Concepcion RN Intervention Information: acetaminophen-oxyCODONE Performed by Kami Concepcion RN on 09/08/2019 07:52:00 EST acetaminophen-oxyCODONE,1Tab Oral,Pain (Mild 1-3) Pain Assessment Pain Assessment : Follow-up assessment Pain Scale Goal : 4 Pain Scale Used : 0-10 Scale Location : Back Onset : Acute Kami Concepcion RN - 09/08/2019 13:27 EST Pain Scale Intensity : 3 Kami Concepcion RN - 09/08/2019 13:27 EST Image 4 - Images currently included in the form version of this document have not been included in the text rendition version of the form. documented in this encounter Plan of Treatment Not on file documented as of this encounter Visit Diagnoses Not on filedocumented in this encounter
--- OUTSIDE RECORDS SUMMARY | 2025-09-19 13:16 | XMS_ITS | Encounter Summary ---
Author Organization [employer] ([place], [place], [place], [place], [place]) Address [address] [place] [address] Care Team Providers Care Senior Portfolio Manager Name Role Phone Unavailable Primary Care Provider Unavailabl e Encounter Details Date Type Department Care Team (Late st Contact Info) Description 08/31/2019 Transcribed Document [facility] [place] [facility] [place] [address] ProviderAsh MD [facility] [place] [address] Social History Tobacco Use Types [...] Conversion Note - Historical ProviderMD - 08/31/2019 7:56 AM TELEVISION CAMERA OPERATOR Vital Measurements Entered On: 08/31/2019 7:56 EST Performed On: 08/31/2019 7:56 EST by MARIBELL CHAMBERS RN Vital Measurements Temperature, Fahrenheit : 98.4 Deg F Clinical Temperature, C : 36.9 Deg C Peripheral Pulse Rate : 74 bpm Systolic Blood Pressure : 158 mmHg (HI) Diastolic Blood Pressure : 94 mmHg (HI) Oxygen Saturation : 94 % MARIBELL CHAMBERS RN - 08/31/2019 7:56 EST Electronically signed by Sharita [facility] Conversion Director Of Valuation Cerner at 02/04/2023 2:06 PM CDT documented in this encounter Plan of Treatment Not on file documented as of this encounter Visit Diagnoses Not on filedocumented in this encounter
--- OUTSIDE RECORDS SUMMARY | 2025-09-19 13:16 | XMS_ITS | Encounter Summary ---
Author Organization [employer] ([place], [place], [place], [place], [place]) Address [address] [place] [address] Care Team Providers Care Vice President Of Consulting Services Name Role Phone Unavailable Primary Care Provider Unavailabl e Encounter Details Date Type Department Care Team (Late st Contact Info) Description 09/08/2019 Transcribed Document [facility] [place] [facility] [place] [address] ProviderAsh MD [address] [place] [address] Social History Tobacco Use Types [...] Conversion Note - Ash ProviderMD - 09/08/2019 2:01 PM GEOSPATIAL TECHNICIAN Patient Education Materials Follows: Fall Prevention in the Home Introduction Falls [...] items that you use a lot in btzh-sk-iocxn places. ??? If you need to reach something above you, use a strong step stool that has a grab bar. ??? Keep electrical cords out of the way. ??? Do notuse floor north korean or wax that makes floors slippery. If [...] do to help prevent falls? Wear shoes that:? Do nothave high heels. ? Have rubber bottoms. ? Are comfortable and fit you well. ? Are closed at the toe. Do not wear sandals. ??? If you use a stepladder:? Make sure that it is fully opened. Do not climb a closed stepladder. ? Make sure that both sides of the stepladder are locked into place. ? Ask someone to hold it for you, if possible. ??? Clearly sudhakar and make sure that you can see:? Any grab bars or handrails. ? First [...] 07/30/2010 Document Revised: 03/10/2017 Document Reviewed: 11/07/2015 ? 2017 Elsevier Wound Infection A wound infection [...] at home: Medicines ??? Take or apply ylam-qdm-mtzclsi and prescription medicines only as told by [...] cannot use soap and water, use hand glue jointer feeder. ? Change your bandage as told by [...] 07/12/2009 Document Revised: 03/10/2017 Document Reviewed: 03/22/2016 Elsevier Interactive Patient Education ? 2019 [employer] documented in this encounter Plan of Treatment Not on file documented as of this encounter Visit Diagnoses Not on filedocumented in this encounter
--- OUTSIDE RECORDS SUMMARY | 2025-09-19 13:16 | XMS_ITS | Encounter Summary ---
Author Organization [employer] ([place], [place], [place], [place], [place]) Address [address] [place] [address] Care Team Providers Care Stonemason Name Role Phone Unavailable Primary Care Provider Unavailabl e Encounter Details Date Type Department Care Team (Late st Contact Info) Description 09/07/[address] [facility] [address] [place] [address] Cj Mayen Jr., MD [address] [facility] [place] [address] Social History Tobacco Use Types Packs/Day Years Used Date Smoking Tobacco: Never Assessed Comments Unknown Sex and Gender Information Value Date Recorded Sex Assigned at Female 04/15/2022 6:39 PM CDT Legal Sex Female 6:49 PM CDT Gender Identity Female 04/15/2022 6:39 PM CDT Sexual Orientation Not on file documented as of this encounter Miscellaneous Notes * Cerner Conversion Note - Cj Mayen Jr., MD - 09/07/2019 2:15 PM EST DATE OF PROCEDURE: 09/07/2019 SURGEON: Cj Mayen Jr, MD PREOPERATIVE DIAGNOSES: 1. Chronic pain syndrome. 2. Malfunction of St. Derek spinal cord stimulator leads. POSTOPERATIVE DIAGNOSES: 1. Chronic pain syndrome. 2. Malfunction of St. Derek spinal cord stimulator leads. PROCEDURES PERFORMED: 1. Removal of pre-existing St. Derek spinal cord stimulator paddle electrode. 2. Placement of new St. Derek spinal cord stimulator paddle electrode via laminectomy. 3. Revision of battery. CHOPPER FEEDER: Cabrera Roberto PA-C. Cabrera Roberto PA-C, assisted through the entire operation with tasks, such as suctioning, soft tissue retraction, removal of old stimulator, placement of new stimulator, and wound closure. ANESTHESIA: General endotracheal anesthesia. BLOOD LOSS: Less than 25 mL. COMPLICATIONS: None. SPECIMEN: Old paddle electrode. CONDITION: Stable to PACU. INDICATIONS FOR PROCEDURE: Ms. Marroquin is 74 years old. She had a St. Derek spinal cord stimulator placed in June of 2010 by another surgeon. She underwent a revision of the battery sometime a few months ago. Since then, she lost coverage in the right lower extremity. I saw her in the office, the system was interrogated and suggested that the right 2 lateral columns were out/nonfunctional. I had her undergo myelogram and x-rays. The electrode appeared to be off to the left side of the spinal canal and I suspected that the reason she lost stimulation because the right side of the paddle was unable to cover over to the contralateral side any longer. I talked about with her and her daughter prior to the operation. I suspect that the electrodes have been off the left side of the canal ever since it was placed. She was getting good stimulation before. I told her that I would just plan on replacing the stimulator paddle, placing it back in the same spot because if we try to move more toward the midline, would actually be a major undertaking trying to get through the epidural scar tissue that puts her at high risk to get a spinal fluid leakage or injury to the spinal cord. The patient and daughter understood, after a consent was signed for surgery. DESCRIPTION OF PROCEDURE: After informed consent was obtained, the patient was brought to the operating room, where general endotracheal anesthesia was induced routinely. She was carefully turned prone on the operating table with torso resting on laminectomy rolls. Arms were abducted and flexed. All pressure points were padded protected, and she was secured to the bed with straps per routine. The preexisting incision was marked out in the midline in the left-sided gluteal area with the battery. Incision was marked out. I brought an AP fluoroscopy and confirmed that we be at the inferior aspect of the paddle with the top of the old incision. Once she was prepped and draped and antibiotics being given, the battery was opened. I used a scalpel to cut down directly onto the battery and lifted out of the pocket, released the two screws and then removed the electrode wires. We put the battery on the back table for replacement later. I opened the thoracic incision. Bovie cautery was used to dissect down to the fascia. We came to the inferior aspect of the incision and saw where the electrode wires were tunneled under the lamina. intact, and then I had to remove the spinous process of lamina half above with a Leksell rongeur and then thinned out the lamina here. This goes right at the base of the electrode. I confirmed that we were right at the inferior aspect of the electrode using AP fluoroscopy during the laminectomy here. By doing this, I incised the scar over the surgical paddle electrode and lifted the paddle out of the epidural space. There was no resistance at all. I then cut the wiring here and then the wiring that coursed under the lamina and a half I was able to pull out from the inferior portion of the incision where the wires were exposed. I then cut the wiring here and then pulled out the wiring that coursed from the thoracic incision to the gluteal incision from the gluteal incision. All the hardware came out without any difficulty. I put in a new electrode in the same epidural tract. It fit very snugly and appropriately. Two silastic anchors were placed on the electrode wires to secure the fascia with silk sutures. Once again, hemostasis was complete. The muscle and fascia were closed with interrupted Vicryl sutures. A tunnel wire was passed from the thoracic incision to the gluteal incision. We pushed the wiring through the left redundant tension loop in the subcutaneous tissue of the thoracic incision. The battery was brought back on the field and the wires were fixed to the sockets, and then the screws were torqued. The impedances were normal now. The redundant wire was placed upon the battery. The capsule was closed back over the battery again. It fit nice snugly and appropriately. Bella's layer and the dermis were closed with interrupted Vicryl sutures above incisions. The last x-ray showed the electrode had not moved, remains in the same place and configuration as was before we took it out. The skin was closed with brady. Dressing was applied. The patient went to the recovery room in stable condition. /[id number] MD KORIN Merino Jr/FREDERICK / RDO / MODL /[id number] documented in this encounter Plan of Treatment Not on file documented as of this encounter Visit Diagnoses Not on filedocumented in this encounter
--- OUTSIDE RECORDS SUMMARY | 2025-09-19 13:16 | XMS_ITS | Encounter Summary ---
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 Provided spiritual support. Spirital Assessment Comment/Summary Report : SPIRITUAL ASSESSMENT COMMENT/SUMMARY No qualifying data available. MISHA DICKERSON - 09/07/2019 11:28 EST Interventions Advance Directive Information Provided : Yes Emotional Support : Empathic/Engaged listening, Family/Significant other supported, Information provided Spiritual and Latter-Day : Spiritual/Latter-Day support provided MISHA DICKERSON - 09/07/2019 11:28 EST Electronically signed by Sharita, [facility] Conversion Traffic Counter Cerner at 02/04/2023 2:02 PM CDT documented in this encounter Plan of Treatment Not on file documented as of this encounter Visit Diagnoses Not on filedocumented in this encounter
--- OUTSIDE RECORDS SUMMARY | 2025-09-19 13:16 | XMS_ITS | Encounter Summary ---
Author Organization [employer] 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
--- OUTSIDE RECORDS SUMMARY | 2025-09-19 13:16 | XMS_ITS | Encounter Summary ---
Author Organization [employer] ([place], [place], [place], [place], [place]) Address [address] [place] [address] Care Team Providers Care Emotionally Impaired Teacher Name Role Phone Unavailable Primary Care Provider Unavailabl e Encounter Details Date Type Department Care Team (Late st Contact Info) Description 09/07/2019 Transcribed Document [facility] Former[facility] [place] [address] ProviderAsh MD [facility] [place] [address] Social History Tobacco Use Types [...] Conversion Note - Ash ProviderMD - 09/07/2019 12:25 PM COMMUNITY RELATIONS MANAGER [facility] Main OR IntraOp Summary Primary Physician: SENDY QUINTANILLA MD-SNU Finalized Date/Time: 09/11/19 15:32:45 Pt. Name: RAYSA ZAMBRANO D.O.B./Sex: 1945 Female Med Rec #: [id number] Physician: SENDY QUINTANILLA MD-SNU Financial #: [id number] Pt. Type: O Room/Bed: [facility]/ Admit/Disch: 09/07/19 07:10:00 - 09/08/19 14:50:00 Institution: [facility] IntraOp Case Attendance Entry 1 Entry 2 Entry 3 Case Attendee SENDY QUINTANILLA MD-SNU Burdine, Teresa A, RN BRADY, CHRISTINA M, RN Role Performed Surgeon/Proceduralist, Restaurant Cook, First Restaurant Cook, Second First Time In 09/07/19 11:59:00 09/07/19 11:59:00 09/07/19 11:59:00 Time Out 09/07/19 13:13:00 09/07/19 13:13:00 09/07/19 12:42:00 Procedure Spinal Cord Stimulator Spinal Cord Stimulator Spinal Cord Stimulator Insertion Insertion Insertion Other Attendee Superficial Wound Closed By: Last Modified By: Jewell Rivera RN Burdine, Teresa A, Jewell Echols, DIMITRY 09/07/19 13:15:25 09/07/19 13:15:25 09/07/19 13:15:25 Entry 4 Entry 5 Entry 6 Case Attendee OTHER, ATTENDEE MARIAA BLACK BRYAN, PA Role Performed Vendor Scrap Baler Physician dietitian assistant Time In 09/07/19 11:59:00 09/07/19 11:59:00 09/07/19 11:59:00 Time Out 09/07/19 13:13:00 09/07/19 13:13:00 09/07/19 13:13:00 Procedure Spinal Cord Stimulator Spinal Cord Stimulator Spinal Cord Stimulator Insertion Insertion Insertion Other Attendee ANASTACIO THOMPSON Superficial Wound Closed By: Last Modified By: Jewell Rivera RN Burdine, Teresa A, Jewell Echols, DIMITRY 09/07/19 13:15:25 09/07/19 13:15:25 09/07/19 13:15:25 Entry 7 Entry 8 Entry 9 Case Attendee LEONARDO JIMENEZ, [facility] MOLD COOLER ZI ADAMSON MD-MANOLO Role Performed Scrub, First MOLD COOLER/Nurse Vascular Radiologist Anesthesiologist Time In 09/07/19 11:59:00 09/07/19 11:59:00 09/07/19 11:59:00 Time Out 09/07/19 13:13:00 09/07/19 13:13:00 09/07/19 13:13:00 Procedure Spinal Cord Stimulator Spinal Cord Stimulator Spinal Cord Stimulator Insertion Insertion Insertion Other Attendee Superficial Wound Closed By: Last Modified By: Jewell Rivera RN Burdine, Teresa A, Jewell Echols RN 09/07/19 13:15:25 09/07/19 13:15:25 09/07/19 13:15:[address] [facility] IntraOp Case Attendance Audit 09/07/19 13:15:25 Forest Fire Warden: [id number] Modifier: [id number] <+> Time Out 1 <*> Procedure Spinal Cord Stimulator Insertion 2 <+> Time Out 2 <*> Procedure Spinal Cord Stimulator Insertion 3 <*> Procedure Spinal Cord Stimulator Insertion 4 <+> Time Out 4 <*> Procedure Spinal Cord Stimulator Insertion 5 <+> Time Out 5 <*> Procedure Spinal Cord Stimulator Insertion 6 <+> Time Out 6 <*> Procedure Spinal Cord Stimulator Insertion 7 <+> Time Out 7 <*> Procedure Spinal Cord Stimulator Insertion 8 <+> Time Out 8 <*> Procedure Spinal Cord Stimulator Insertion 9 <+> Time Out 9 <*> Procedure Spinal Cord Stimulator Insertion 09/07/19 12:43:06 Forest Fire Warden: [id number] Modifier: [id number] <+> Time Out 3 <*> Procedure Spinal Cord Stimulator Insertion 09/07/19 12:36:41 Forest Fire Warden: [id number] Modifier: [id number] <*> Procedure Spinal Cord Stimulator Insertion 2 <*> Procedure Spinal Cord Stimulator Insertion 3 <+> Time In 3 <*> Procedure Spinal Cord Stimulator Insertion 4 <+> Time In 4 <*> Procedure Spinal Cord Stimulator Insertion 5 <+> Time In 5 <*> Procedure Spinal Cord Stimulator Insertion 6 <+> Time In 6 <*> Procedure Spinal Cord Stimulator Insertion 7 <+> Time In 7 <*> Procedure Spinal Cord Stimulator Insertion 8 <+> Time In 8 <*> Procedure Spinal Cord Stimulator Insertion 9 <+> Time In 9 <*> Procedure Spinal Cord Stimulator Insertion 09/07/19 12:31:33 Forest Fire Warden: [id number] Modifier: [id number] <+> 3 Case Attendee <+> 3 Role Performed <+> 3 Procedure <+> 4 Case Attendee <+> 4 Role Performed <+> 4 Procedure <+> 4 Other Attendee <+> 5 Case Attendee <+> 5 Role Performed <+> 5 Procedure <+> 6 Case Attendee <+> 6 Role Performed <+> 6 Procedure <+> 7 Case Attendee <+> 7 Role Performed <+> 7 Procedure <+> 8 Case Attendee <+> 8 Role Performed <+> 8 Procedure <+> 9 Case Attendee <+> 9 Role Performed <+> 9 Procedure 09/07/19 12:26:55 Forest Fire Warden: [id number] Modifier: [id number] <+> 1 Time In <+> 1 Procedure 2 <+> Time In 2 <*> Procedure Spinal Cord Stimulator Insertion [facility] IntraOp Case Times Entry 1 Patient In Room Time 09/07/19 11:59:00 Out Room Time 09/07/19 13:13:00 Anesthesia Start Time 09/07/19 11:59:00 Stop Time 09/07/19 13:13:00 Surgery / Procedure Times Start Time 09/07/19 12:25:00 Stop Time 09/07/19 13:09:00 Last Modified By: Jewell Rivera RN 09/07/19 13:14:[address] [facility] IntraOp Case Times Audit 09/07/19 13:14:22 Forest Fire Warden: [id number] Modifier: [id number] <+> 1 Out Room Time <+> 1 Stop Time 09/07/19 13:09:46 Forest Fire Warden: [id number] Modifier: [id number] <+> 1 Stop Time [facility] IntraOp Cautery Entry 1 Entry 2 ESU Identification Cautery Type BiPolar ESU Monopolar ESU Cautery Type Comments ID Number [id number] ID Type Hospital Number Hospital Number Cautery Settings Cut Setting 45 8 Coag Setting 45 45 Blend Setting Bipolar Setting Argon Setting Argon Herbert ESU Grounding Pad Ground Pad Type Grounding Pad Type Comment Grounding Pad Site Grounding Pad Site Comment Grounding Pad Applied By Grounding Pad Site Skin Condition Before Cautery Site Skin Condition Before Comment Grounding Pad Site Skin Condition After Cautery Site Skin Condition After Comment Last Modified By: Jewell Rivera RN Burdine, Teresa A, RN 09/07/19 12:37:44 09/07/19 12:37:[address] [facility] IntraOp Communication Entry 1 Entry 2 Communication To Family/Significant other Family/Significant other Comment START CLOSING Communication By ERON NARVAEZ RN Burdine, Teresa A, RN Date and Time 09/07/19 12:55:00 Last Modified By: Jewell Rivera RN Burdine, Teresa A, RN 09/07/19 12:31:45 09/07/19 12:55:57 [facility] IntraOp Communication Audit 09/07/19 12:55:57 Forest Fire Warden: [id number] Modifier: [id number] <+> 2 Communication By <+> 2 Date and Time <+> 2 Communication To <+> 2 Comment [facility] IntraOp Counts Verification Entry 1 Procedure Spinal Cord Stimulator Insertion Count Info Count Type Sponge, Sharps Counts Verification Baseline/pre-procedure Sequence Count Results Correct, surgeon notified Counts Performed By Count Performed By LEONARDO JIMENEZ, ST (Scrub) Count Performed By ERON NARVAEZ RN (RN) Last Modified By: Jewell Rivera RN 09/07/19 12:32:33 [facility] IntraOp Counts Final Entry 1 Procedure Spinal Cord Stimulator Insertion Final Count Info Count Type Sponge, Sharps, Miscellaneous Counts Verification Skin Closure/end of Sequence procedure Count Results Correct, surgeon notified Counts Performed By Count Performed By LEONARDO JIMENEZ, ST (Scrub) Count Performed By Jewell Rivera RN (RN) Last Modified By: Jewell Rivera RN 09/07/19 13:09:33 [facility] IntraOp Counts Final Audit 09/07/19 13:09:33 Forest Fire Warden: [id number] Modifier: [id number] <*> Procedure Spinal Cord Stimulator Insertion 1 <+> Counts Verification Sequence [facility] IntraOp Cultures and Spec Summary Entry 1 Cultrures and Specimens Specimen Ordered: Yes Test(s) Routine/Path-Lab Requested/Final Disposition Last Modified By: Jewell Rivera RN 09/07/19 12:55:20 General Comments: A. EXPLANTED HARDWARE [facility] IntraOp Departure from OR Entry 1 Integumentary Assessment Integumentary WDL Assessment WDL Transfer/Handoff Transfer to PACU Phase I Handoff Method Bedside/Face to face, Phone call Post-op Transport Stretcher/Navneet Via Patient Transport RADHA BRO PA, Accompanied by Earl Lu CRNA Last Modified By: Jewell Rivera RN 09/07/19 12:56:[address] [facility] IntraOp Departure from OR Audit 09/07/19 12:56:14 Forest Fire Warden: [id number] Modifier: [id number] <+> 1 Patient Transport Accompanied by [facility] IntraOp Dressing and Packing Entry 1 Type Dressing Location OPSITE Wound Dressing Item Occlusive dressing Applied By RADHA BRO PA Last Modified By: Jewell Rivera RN 09/07/19 12:47:[address] [facility] IntraOp Fire Risk Assessment Entry 1 Fire Info Surgical Site or 0- No Incision Above the Xyphoid Open O2 Source 0- No (Mask or Cannula) Available Ignition 1- Yes (ESU, Laser, Light Source) Fire Risk 1 Assessment Score Fire Score Fire Risk Yes Assessment Complete Fire Risk ERON NARVAEZ RN Assessment Verified By Fire Risk 09/07/19 12:33:00 Assessment Verified Date/Time Fire Risk High Risk Protocol Yes Implemented Standard Fire Yes Safety Precautions Followed Last Modified By: Jewell Rivera RN 09/07/19 12:33:[address] [facility] IntraOp General Case Vegetable Grader 1 Case Information OR OR [address] [facility] Case Level 1 Room Verified Yes Wound Class I - Clean Specialty SN Neurosurgery Anesthesia Type General ASA Class 3 Diagnosis Preop Diagnosis LEAD REVISION Postop Same As Preop No Postop Diagnosis PLEASE SEE MD NOTES. Last Modified By: Jewell Rivera RN 09/07/19 12:40:[address] [facility] IntraOp General Case Data Audit 09/07/19 12:40:23 Forest Fire Warden: [id number] Modifier: [id number] <+> 1 Preop Diagnosis [facility] IntraOp Implant Log Entry 1 Type Implant (Synthetic) Implant Log Implant Type Valve(s) Implant PUMP LEAD PENTA 3MM Identification [id number] Description Implant Quantity 1 Implant Site OPSITE Implant [id number] Identification Serial Number Implant Adv Neuromodulation Sys Identification Decorative Cutting Machine Tender Name: Implant [id number] Identification Catalog Number Implant Has an Yes Expiration Date Implant Expiration 11/20/20 Date Tissue Implant Graft Prep Per Yes Decorative Cutting Machine Tender Instructions: Decorative Cutting Machine Tender Yes Paperwork Completed Last Modified By: Jewell Rivera RN 09/07/19 12:41:[address] [facility] IntraOp Intraoperative Assessment Entry 1 Handoff Method Bedside/Face to face, Phone call Valid History / Yes Physical in Chart Preoperative Yes Checklist Reviewed/Evaluated Allergies Reviewed Yes Patient is Latex No Sensitive Isolation Airborne, Contact Precautions Noted Level of WDL Consciousness (WDL = Alert, Oriented to Person, Place, and Time) Skin Assessment Yes Verified Present Upon IVs Arrival to OR Last Modified By: Jewell Rivera RN 09/07/19 12:34:[address] [facility] IntraOp Intraoperative Equipment Entry 1 Type Equipment Equipment Equipment Elly Suction System Intraop Monitoring Antiembolic Devices Antiembolic Devices Sequential compression device, knee high Antiembolic Device Bilateral Location Scopes Photo/Video Documentation Last Modified By: Jewell Rivera RN 09/07/19 12:35:[address] [facility] IntraOp Medication Admin Entry 1 Medication/Irrigant SPNG SURGFOAM [id number] Route of TOPICAL Administration Dose Administered By SENDY QUINTANILLA MD-SNU Procedure Irrigation Last Modified By: Jewell Rivera RN 09/07/19 12:37:[address] [facility] IntraOp Patient Positioning Entry 1 Procedure Spinal Cord Stimulator Insertion Body Position Prone Left Arm Position Secured on padded arm board Right Arm Position Secured on padded arm board Left Leg Position Elevated Right Leg Position Elevated Feet Uncrossed Yes Pressure Points Yes Checked Positioning Devices Arm Board, Pillows, Pad, Arm, Safety Strap, Leg(s), Roll(s), Chest Positioned By SENDY QUINTANILLA MD-SNU, RADHA BRO PA, ERON NARVAEZ RN, Earl Lu CRNA Position Verified Positioning Yes Verified by Anesthesia Last Modified By: Jewell Rivera RN 09/07/19 12:36:[address] [facility] IntraOp Sign In Entry 1 Patient, Site, Yes Procedure Identified Surgical Consent Yes Confirmed Relevant Surgical Yes Documents Available Surgical Site Yes Marked by person performing procedure Anesthesia Machine Yes Check Completed Medication Checks Yes Completed Allergies Yes Airway Difficult Yes Airway/Aspiration Risk Difficult Yes Airway/Aspiration Intervention Equipment Available Blood Loss Risk Yes Blood Loss Yes Intervention Equipment Prepared and Ready Blood Identifiers Yes Verified Per Policy Hypothermia Risk No Warming Measures Yes Taken Last Modified By: Jewell Rivera RN 09/07/19 12:36:[address] [facility] IntraOp Sign Out Entry 1 RN Confirmation Surgical Yes Procedure(s) Identified Instrument, Sponge N/A and Sharps Counts Correct/Documented Equipment Problems Yes Documented Specimen Labeled Yes Correctly Urinary Catheter N/A Documented in IView Purdy Patient Yes Recovery Concerns Reviewed with Anesthesia Provider, Surgeon and RN Purdy Patient Yes Management Concerns Reviewed with Anesthesia Provider, Surgeon and RN Safety Checklist Yes Elements Complete? RN Sign Out ERON NARVAEZ RN Signature RN Sign Out 09/07/19 13:14:00 Signature Date/Time Plan of Care Outcome - Fire Risk OUTCOME STATEMENT: Goal met Patient is free from injury related to surgical fire Plan of Care Outcome - Pt Positioning OUTCOME STATEMENT: Goal met Absence of signs and symptoms of positioning injury. Plan of Care Outcome - Skin Prep OUTCOME STATEMENT: Goal met Intraoperative care is consistent with measures to prevent infection Plan of Care Outcome - Xray/Images OUTCOME STATEMENT: Goal met Absence of observable signs or symptoms of radiation injury Plan of Care Outcome - Counts OUTCOME STATEMENT: Goal met Absence of signs and symptoms of injury related to extraneous objects Last Modified By: Jewell Rivera RN 09/07/19 13:14:[address] [facility] IntraOp Sign Out Audit 09/07/19 13:14:29 Forest Fire Warden: [id number] Modifier: [id number] <+> 1 RN Sign Out Signature Date/Time [facility] IntraOp Skin Prep Entry 1 Procedure Spinal Cord Stimulator Insertion Prescribed Yes Pre-Surgical Prep Completed Prep Area BACK Intraop Prep Integumentary WDL Assessment WDL Prep Agents DuraPrep Prep by ERON NARVAEZ RN Hair Removal Methods No hair removal performed Last Modified By: Jewell Rivera RN 09/07/19 12:38:[address] [facility] IntraOp Surgical Procedures Entry 1 Procedure Spinal Cord Stimulator Insertion Additional (REVISION OF ST STEVIE Procedure SPINAL CORD STIMULATOR Description LEADS AND BATTERY) Primary Procedure Yes Primary Surgeon SENDY QUINTANILLA MD-SNU Start 09/07/19 12:25:00 Stop 09/07/19 13:09:00 Anesthesia Type General Specialty SN Neurosurgery Wound Class I - Clean Last Modified By: Jewell Rivera RN 09/07/19 13:15:[address] [facility] IntraOp Surgical Procedures Audit 09/07/19 13:15:24 Forest Fire Warden: [id number] Modifier: [id number] <+> [address] [facility] IntraOp Temp Regulation Devices Entry 1 Temp Regulation Temperature Forced Air Warming Regulation Device device, Warm blankets Temperature DANIA HUGGER READY AND Regulation Comment AVAILABLE TO ANESTHESIA. PATIENT'S TEMPERATURE MONITORED VBY ANESTHSEIA Last Modified By: Jewell Rivera RN 09/07/19 13:10:[address] [facility] IntraOP Time Out Entry 1 Procedure to be Spinal Cord Stimulator Performed Insertion Time Out Time Out Pause Time 09/07/19 12:24:00 All activity Yes suspended (unless life threatening emergency) Team Verbally Correct patient Confirms Information identity, Correct side and site are marked, Consent form is present and accurate, Agreement on the procedure to be done, Correct patient position, Relevant images/results properly labeled/appropriately displayed, Confirm antibiotics have been administered, Confirm the skin prep has dried, Confirm prosthesis/implant/devic e is present, Performed in location of procedure after prepped/draped Antibiotic Yes Prophylaxis Administered Or In Progress Within the Last 60 Minutes Beta Marcus N/A Administered Venous Yes Thromboembolism Prophylaxis Required Anticipated Critical Events Surgeon None expected Anesthesia Provider None expected Nursing Assures Sterility of instruments, Equipment concerns or issues Essential Imaging Yes Labeled and Displayed Last Modified By: Jewell Rivera RN 09/07/19 12:26:[address] [facility] IntraOp X-Ray and Images Entry 1 X-Ray/Imaging Type Fluoroscopy Fluoroscopy Type C-Arm Site OPSITE Manager Non Profit Name MARIAA BLACK Protective Devices Yes Used Last Modified By: Jewell Rivera RN 09/07/19 13:11:14 Case Comments <None> Finalized By: VIRAL HERBERT Document Signatures Signed By: Jewell Rivera RN 09/07/19 13:16 VIRAL HERBERT 09/11/19 15:32 Unfinalized History Date/Time Username Reason for Unfinalizing Freetext Reason for Unfinalizing 09/11/19 15:31 [id number] Correct Billing Electronically signed by Sharita [facility] Conversion Paid Search Specialist Cerner at 02/04/2023 1:59 PM CDT documented in this encounter Plan of Treatment Not on file documented as of this encounter Visit Diagnoses Not on filedocumented in this encounter
--- OUTSIDE RECORDS SUMMARY | 2025-09-19 13:16 | XMS_ITS | Clinical Summary ---
Author Organization [employer] ([place], [place], [place], [place], [place]) Address [address] [place] [address] Care Team Providers Care Biological Scientist Name Role Phone Unavailable Primary Care Provider Unavailabl e Social History Tobacco Use Types Packs/Day Years Used Date Smoking Tobacco: Never Assessed Comments Unknown Sex and Gender Information Value Date Recorded Sex Assigned at Female 04/15/2022 6:39 PM CDT Legal Sex Female 6:49 PM CDT Gender Identity Female 04/15/2022 6:39 PM CDT Sexual Orientation Not on file Plan of Treatment Not on file
--- OUTSIDE RECORDS SUMMARY | 2025-09-19 13:16 | XMS_ITS | Referral Summary ---
Author Organization [employer] ([place], [place], [place], [place], [place]) Address [address] [place] [address] Care Team Providers Care Muffler Hand Name Role Phone Unavailable Primary Care Provider [...]
--- OUTSIDE RECORDS SUMMARY | 2025-09-19 13:16 | XMS_ITS | Encounter Summary ---
Author Organization [employer] ([place], [place], [place], [place], [place]) Address [address] [place] [address] Care Team Providers Care Autographer Name Role Phone Unavailable Primary Care Provider Unavailabl e Encounter Details Date Type Department Care Team (Late st Contact Info) Description 09/07/2019 Transcribed Document [facility] Family Medicine [facility] [place] [address] ProviderAsh MD [facility] [place] [address] Social History Tobacco Use Types [...] - Ash ProviderMD - 09/07/2019 12:25 PM FINISHER DENTURE [facility] Main OR PACU Summary Primary Physician: SENDY QUINTANILLA MD-[facility] Finalized Date/Time: 09/07/19 14:57:33 Pt. Name: RAYSA ZAMBRANO/Sex: 1945 Female Med Rec #: [id number] Physician: SENDY QUINTANILLA MD-SN Financial #: [id number] Pt. Type: O Room/Bed: [facility]/ Admit/Disch: 09/07/19 07:10:00 - Institution: [facility] Main OR PACU I Case Times Entry 1 In PACU I 09/07/19 13:15:00 Ready for PACU 09/07/19 14:30:00 Discharge Discharge from PACU 09/07/19 14:30:00 I Last Modified By: Giulia Luna RN 09/07/19 14:57:15 Finalized By: Giulia Luna, RN Document Signatures Signed By: Giulia Luna RN 09/07/19 14:57 Electronically signed by Sharita [facility] Conversion Wet Process Miller Head Assistant Cerner at 02/04/2023 2:11 PM CDT documented in this encounter Plan of Treatment Not on file documented as of this encounter Visit Diagnoses Not on filedocumented in this encounter
--- OUTSIDE RECORDS SUMMARY | 2025-09-19 13:16 | XMS_ITS | Encounter Summary ---
Author Organization [employer] ([place], [place], [place], [place], [place]) Address [address] [place] [address] Care Team Providers Care Photograph Enlarger Name Role Phone Unavailable Primary Care Provider Unavailabl e Encounter Details Date Type Department Care Team (Late st Contact Info) Description 08/31/2019 Transcribed Document [facility] Family Medicine [facility] [place] [address] ProviderAsh MD [facility] [place] [address] Social History Tobacco Use Types Packs/Day Years Used Date Smoking Tobacco: Never Assessed Comments Unknown Sex and Gender Information Value Date Recorded Sex Assigned at Female 04/15/2022 6:39 PM CDT Legal Sex Female 6:49 PM CDT Gender Identity Female 04/15/2022 6:39 PM CDT Sexual Orientation Not on file documented as of this encounter Miscellaneous Notes * Cerner Conversion Note - Ash Rivera MD - 08/31/2019 9:07 AM MARINE ENGINEERING PROFESSOR Patient Education Materials Follows: Myelogram, Care After Refer to this sheet [...] lift, or do any strenuous activity for 24?48 hours or as told by your health care provider. ??? Take jwpm-umq-vumptor and prescription medicines only as told by [...] 10/29/2016 Document Revised: 03/10/2017 Document Reviewed: 07/15/2016 [email or web address] Interactive Patient Education ? 2019 [employer] documented in this encounter Plan of Treatment Not on file documented as of this encounter Visit Diagnoses Not on filedocumented in this encounter
--- OUTSIDE RECORDS SUMMARY | 2025-09-19 13:16 | XMS_ITS | Encounter Summary ---
Author Organization [employer] ([place], [place], [place], [place], [place]) Address [address] [place] [address] Care Team Providers Care Graphic Design Specialist Name Role Phone Unavailable Primary Care Provider Unavailabl e Encounter Details Date Type Department Care Team (Late st Contact Info) Description 09/08/2019 Transcribed Document [facility] [place] [facility] [place] [address] ProviderAsh MD [facility] [place] [address] Social History Tobacco Use Types [...] Conversion Note - Historical ProviderMD - 09/08/2019 2:02 PM INSURANCE POLICY ISSUE CLERK Stroke/Warfarin Instructions Entered On: 09/08/2019 14:02 EST Performed On: 09/08/2019 14:02 EST by Kami Concepcion RN Stroke/Warfarin Instructions Stroke/TIA Discharge Ins : N/A Warfarin Discharge Ins : N/A Kami Concepcion RN - 09/08/2019 14:02 EST documented in this encounter Plan of Treatment Not on file documented as of this encounter Visit Diagnoses Not on filedocumented in this encounter
--- OUTSIDE RECORDS SUMMARY | 2025-09-19 13:16 | XMS_ITS | Encounter Summary ---
Author Organization [employer] ([place], [place], [place], [place], [place]) Address [address] [place] [address] Care Team Providers Care Counter Pocket Sewer Name Role Phone Unavailable Primary Care Provider Unavailabl e Encounter Details Date Type Department Care Team (Late st Contact Info) Description 09/07/2019 Transcribed Document [facility] Family Medicine [place] [address] ProviderAsh [place] [address] Social History Tobacco Use Types [...] - Ash ProviderMD - 09/07/2019 12:25 PM ANNEALING FURNACE OPERATOR [facility] Main OR Preop Summary Primary Physician: SENDY QUINTANILLA MD-[facility] Finalized Date/Time: 09/07/19 15:50:04 Pt. Name: RAYSA ZAMBRANO/Sex: 1945 Female Med Rec #: [id number] Physician: SENDY QUINTANILLA MD-[facility] Financial #: [id number] Pt. Type: O Room/Bed: [facility]/ Admit/Disch: 09/07/19 07:10:00 - Institution: [facility] PreOp Case Times Entry 1 In Preop 09/07/19 09:14:00 Ready for Holding n/a Room Patient Ready for 09/07/19 09:34:00 Surgery Patient Out of Preop 09/07/19 11:56:00 Patient Out of n/a Holding Room Last Modified By: JEAN PIERRE LOPES RN 09/07/19 15:50:01 [facility] PreOp Case Times Audit 09/07/19 15:50:01 Flux Mixer: LEN Modifier: [email or web address] <+> 1 Patient Out of Preop 09/07/19 09:34:43 Flux Mixer: LEN Modifier: LEN <+> 1 Patient Ready for Surgery Finalized By: JEAN PIERRE LOPES RN Document Signatures Signed By: JEAN PIERRE LOPES RN 09/07/19 15:50 Electronically signed by Sharita [facility] Conversion Plastic Tool Maker Cerner at 02/04/2023 2:19 PM CDT documented in this encounter Plan of Treatment Not on file documented as of this encounter Visit Diagnoses Not on filedocumented in this encounter
--- OUTSIDE RECORDS SUMMARY | 2025-09-19 13:16 | XMS_ITS | Encounter Summary ---
Author Organization [employer] ([place], [place], [place], [place], [place]) Address [address] [place] [address] Care Team Providers Care Chancellor Name Role Phone Unavailable Primary Care Provider Unavailabl e Encounter Details Date Type Department Care Team (Late st Contact Info) Description 09/07/2019 Transcribed Document [facility] [address] [facility] [address] [place] [address] Cj Mayen Jr., MD [address] [facility] [address] [place] [address] Social History Tobacco Use Types [...] - Cj Mayen Jr., MD - 09/07/2019 2:08 PM EST Patient: RAYSA ZAMBRANO Age: 74 Years Sex: Female : 1945 *Operation replacement of st evelio spinal cord stimulator leads and revision of battery *Preoperative Diagnosis malfunction of stimulator *Postoperative Diagnosis same *Surgeon(s) amalia *Estimated Blood Loss <25ml *Findings expteced *Specimen(s) old stimulator leads Complications none Date of Service Date/Time of Service SN - Proc - Start Time: 09/07/19 12:25:00 (09/07/19 12:26:54) documented in this encounter Plan of Treatment Not on file documented as of this encounter Visit Diagnoses Not on filedocumented in this encounter
--- OUTSIDE RECORDS SUMMARY | 2025-09-19 13:16 | XMS_ITS | Encounter Summary ---
Author Organization [employer] ([place], [place], [place], [place], [place]) Address [address] [place] [address] Care Team Providers Care Temperature Inspector Name Role Phone Unavailable Primary Care Provider Unavailabl e Encounter Details Date Type Department Care Team (Late st Contact Info) Description 08/31/2019 Transcribed Document [facility] [place] [facility] [place] [address] ProviderAsh [place] [address] Social History Tobacco Use Types [...] - Historical ProviderMD - 08/31/2019 7:56 AM AUTOMATIC CLIPPER AND STRIPPER Height and Weight, Routine Entered On: 08/31/2019 7:57 EST Performed On: 08/31/2019 7:56 EST by MARIBELL CHAMBERS RN Height and Weight, Routine Routine Weight Source : Standing scale Routine Weight Entry Format : [place] Routine Weight, Pounds : 221 lb Routine Weight Calculation : 100.45 kg Height Source : Measured Height Entry Format : [place] Height, Feet : 5 ft Height, Inches : 8 Inch Clinical Height : 172.72 cm Body Surface Area (BSA), Routine : 2.13 m2 Body Mass Index (BMI), Routine : 33.67 kg/m2 MARIBELL CHAMBERS RN - 08/31/2019 7:56 EST Electronically signed by Sharita [facility] Conversion Trucker Cerner at 02/04/2023 2:13 PM CDT documented in this encounter Plan of Treatment Not on file documented as of this encounter Visit Diagnoses Not on filedocumented in this encounter
--- OUTSIDE RECORDS SUMMARY | 2025-09-19 13:16 | XMS_ITS | Encounter Summary ---
Author Organization [employer] ([place], [place], [place], [place], [place]) Address [address] [place] [address] Care Team Providers Care Harness Maker Name Role Phone Unavailable Primary Care Provider Unavailabl e Encounter Details Date Type Department Care Team (Late st Contact Info) Description 09/07/2019 Transcribed Document [facility] [place] Family Medicine [facility] [place] [address] ProviderAsh MD [facility] [place] [address] Social History Tobacco Use Types [...] Conversion Note - Historical ProviderMD - 09/07/2019 7:09 AM ADMINISTRATIVE ASSISTANT Admission History, Adult Entered On: 09/07/2019 18:30 EST Performed On: 09/07/2019 18:30 EST by VIRAL ESTRADA RN Advance Directive Patient has Advance Directive *Q : Yes, Advance Directive on file Family/Rep Contact Information : DaughterAngela Advance Directive Type : Living will Advance Directive Date : 09/07/2019 EST Copy Advance Directive Verified/on Chart : Yes Date Hospital Obtained Advance Directive : 09/07/2019 EST Advance Directive Comment : Assisted patient in completing and notarizing living will VIRAL ESTRADA RN - 09/07/2019 18:25 EST Anesthesia/Transfusion History Family History of Anesthesia Reaction : No prior transfusion(s) Blood Transfusion Acceptable to Patient : Yes Transfusion History : Prior anesthesia without reaction Family History of Anesthesia Reaction : None VIRAL ESTRADA RN - 09/07/2019 18:25 EST Functional Assessment Living Situation : Home Patient Lives With : Alone Persons Assisting Patient at Home : Alone Current Daily Living Assistance : None Mobility Assistance Prior to Admission : Independent Current Home Treatments : CPAP Home Equipment : None Professional Skilled Services : None Special Services and Community Resources : None VIRAL ESTRADA RN - 09/07/2019 18:25 EST General Info Preferred Name : Mya Arrived From : Home Mode of Arrival on Unit : Ambulatory Legal Guardian : Daughter Support Person/Patient Mental Health Coordinator : Yes Support Person/Pt Rep Name : january dtr Support Person/Pt Rep Contact Information : [phone] Want Family/Rep/Phys Notified of Admit : No Emergency Contact #1 : January Emergency Contact #1 Emergency Contact #1 Relationship : dtr Emergency Contact #2 : Emergency Contact #2 Phone Number : na Emergency Contact #2 Relationship : na Information Obtained From : Patient Primary Language : Sami Communication Barrier : None Objects to Sharing Info w Family : No VIRAL ESTRADA RN - 09/07/2019 18:25 EST Fall Risk Scales ABCs Fall Injury Risk Identification : Bones, Surgery ABC Fall Injury Risk : Moderate to high injury risk Injury Moderate to High Risk Interventions : Supervise toileting as indicated VASQUEZ Hx Falls Immediate/Within 3 Months : No Vasquez Secondary Diagnosis : No VASQUEZ Use of Ambulatory Aid : Bed rest/Nurse assist VASQUEZ IV Therapy or IV Access : Yes Vasquez Gait/Transferring : Weak Vasquez Mental Status : Oriented to own ability Vasquez Fall Risk Score : 30 VASQUEZ Fall Scale Risk Level : 25-45 Medium Risk [place] Fall Interventions : Adequate lighting, Assistive devices within reach, Bed in low position, Call device within reach, Fall prevention handout/education per facility policy, Hourly comfort/safety rounds, Non-slip footwear, Personal items within reach, Reinforced to call for assistance before getting out of bed, Room free of clutter/spills, Upper side-rails up, Wheels locked, Wires/Cords secured Fall Risk Scale Calc Temp : 0 VIRAL ESTRADA RN - 09/07/2019 18:25 EST Health Histories Smoking Status : Former smoker, quit more than 30 days ago Smokeless Tobacco Status : Never VIRAL ESTRADA RN - 09/07/2019 18:25 EST Social History (As Of: 09/07/2019 18:30:54 EST) Tobacco: Former smoker, quit more than 30 days ago Smoking Status. Never Smokeless Tobacco Status. None Smokeless Tobacco Use History. Years of Use: 30. Packs/Tins Daily: 0.75. Last Used: quit 1995. (Last Updated: 08/31/2019 13:59:51 EST by DELFINO MAYO RN) Alcohol: Alcohol Use History Yes. Alcohol Use Frequency Rarely, Socially. (Last Updated: 08/31/2019 14:00:10 EST by DELFINO MAYO RN) Substance Abuse: Drug Use Hx: No. Use in Last 12 Months: No. (Last Updated: 08/31/2019 14:00:16 EST by DELFINO MAYO RN) Home/Environment: Lives with Alone. Living situation: Home/Independent. Home equipment: CPAP/BiPAP. (Last Updated: 08/31/2019 14:00:41 EST by DELFINO MAYO RN) Employment/School: Retired (Last Updated: 08/31/2019 14:00:50 EST by DELFINO MAYO RN) Height and Weight, Clinical Dosing Height Source : Measured Height Entry Format : Evans Height, Feet : 5 ft(Converted to: 152 cm, 60 Inch) Height, Inches : 8 Inch(Converted to: 0 ft 8 Inch, 20.32 cm) Clinical Height : 172.72 cm Weight Source : Standing scale Weight Entry Format : Evans Clinical Dosing Weight : 100.23 kg Weight, Pounds : 220 lb Weight, Ounces : 8 oz Body Surface Area (BSA) : 2.13 m2 Body Mass Index : 33.6 kg/m2 (HI) [place] Body Weight : 63 kg VIRAL ESTRADA RN - 09/07/2019 18:25 EST Infectious Disease History Infectious Disease History : C-Difficile, Chicken pox/Shingles, Measles, Mumps Active Surveillance Screen Assessment : Patient does not meet any of above criteria Active Surveillance Screen Negative : Yes Fever/Chills Last 48 Hours : No Travel To Regions with Travel Advisories : No Travel Outside [place] Within Last 30 Days : No Contact With Traveler to Advisory Region : No Tuberculosis Symptoms : None VIRAL ESTRADA RN - 09/07/2019 18:25 EST Influenza Vaccine Asmt, Adult Previous Vaccines from Immunization Schedule : No qualifying data available. Influenza Immunization, Current Season : Yes VIRAL ESTRADA RN - 09/07/2019 18:25 EST Pneumococcal Vaccine Previous Vaccines from Immunization Schedule : No qualifying data available. Pneumonia Immunization Received : Yes VIRAL ESTRADA RN - 09/07/2019 18:25 EST Nutrition History Feeding Ability : Independent Adaptive Feeding Equipment : None Adaptive Feeding Equipment : Regular Eating Poorly Due to Decreased Appetite : No Unplanned Weight Loss in Past 3-6 Months : No Malnutrition Screening Tool Total(mal) : 0 Malnutrition Screening Tool Risk Level : Patient not at risk VIRAL ESTRADA RN - 09/07/2019 18:25 EST [place] Suicide Severity Rating Scale (C-SSRS) CSSRS Past Month Wish to be : No CSSRS Past Month Suicidal Thoughts : No CSSRS Lifetime Suicide Behavior : No Suicide Severity Rating Score : 0 Suicide Severity Rating : No Additional Care Required at this time VIRAL ESTRADA RN - 09/07/2019 18:25 EST Psychosocial History Does Someone Depend on You for Care? : No Currently in Unsafe Situation : No VIRAL ESTRADA RN - 09/07/2019 18:25 EST Sleep Apnea Risk Assmt BiPAP/CPAP Ordered for Home Use : Yes Hx of Obstructive Sleep Apnea Diagnosis : Yes BiPAP/CPAP Used at Home : Yes Age over 50 Years Old : Yes Gender Male : No VIRAL ESTRADA RN - 09/07/2019 18:25 EST Valuables and Belongings Valuables and Belongings : Personal devices, Personal items, Respiratory devices, No comfort items, No jewelry, No assistive devices, No respiratory devices, No medications Personal Device Disposition : Bedside Personal Devices : Glasses Personal Items : Cell phone, Other: ipod for stimulator Personal Items Disposition : Bedside Respiratory Devices : CPAP Respiratory Device Disposition : Bedside VIRAL ESTRADA RN - 09/07/2019 18:25 EST Electronically signed by Ameya Sheriff Conversion Retail Sales Merchandiser Development Cerner at 02/04/2023 1:56 PM CDT documented in this encounter Plan of Treatment Not on file documented as of this encounter Visit Diagnoses Not on filedocumented in this encounter
--- OUTSIDE RECORDS SUMMARY | 2025-09-19 13:16 | XMS_ITS | Encounter Summary ---
Author Organization [employer] ([place], [place], [place], [place], [place]) Address [address] [place] [address] Care Team Providers Care Pumper Hand Name Role Phone Unavailable Primary Care Provider Unavailabl e Encounter Details Date Type Department Care Team (Late st Contact Info) Description 08/31/2019 Transcribed Document [facility] [place] Family Medicine [facility] [place] [address] ProviderAsh MD [facility] [place] [address] Social History Tobacco Use Types [...] Conversion Note - Historical ProviderMD - 08/31/2019 9:08 AM INSURANCE ACCOUNT ASSISTANT Nursing Discharge Summary Entered On: 08/31/2019 9:08 EST Performed On: 08/31/2019 9:08 EST by MARIBELL CHAMBERS flight test engineer Documentation Discharge Date/Time : 08/31/2019 12:20 EST MARIBELL CHAMBERS RN - 08/31/2019 12:20 EST Patient Disposition, General : Discharge Discharge To : Home with ambulatory/outpatient follow-up Mode Of Departure, General Discharge : Ambulatory Accompanied By, Discharge : Daughter IV Discontinued : Not applicable Personal Belongings With Patient : Yes Discharge Instructions Reviewed With, Opportunity For Questions Given : Patient Patient Education Completed : Yes Teaching Method : Explanation Teaching Evaluation : Verbalizes understanding MARIBELL CHAMBERS RN - 08/31/2019 9:08 EST Electronically signed by Sharita [facility] Conversion Wholesale And Retail Merchant Cerner at 02/04/2023 2:12 PM CDT documented in this encounter Plan of Treatment Not on file documented as of this encounter Visit Diagnoses Not on filedocumented in this encounter
== END 2025-09-19 23:59 | disposition home or self-care (01) ==
LOC: RAD 13:10
PROVIDERS: PCP Internal Medicine Adolescent Medicine; Visit Provider Nurse Practitioner Family
DX: M47.816 Spondylosis without myelopathy or radiculopathy, lumbar region (principal); G89.4 Chronic pain syndrome
CPT/HCPCS: 72110